=== PATIENT | female | born 1955 | race Caucasian/White ===

== ENCOUNTER 2017-03-21 13:55 | Observation (INO) ==
[2017-03-21] MEDS ORDERED: PROMETHAZINE 25 MG/1 ML VIAL IM STA (16:16)
--- NOTE | 2017-03-21 16:26 | Emergency Department Note ---
Arrival - Arrival Chief Complaint: Non-Specific Stated Complaint: Potassium low, Vomiting, and migraine ED Nursing Triage Note: pt ambulatory to triage with c/o having abnormal labs this am. pt was told that her potassium was low and they sent her here for further eval. pt was also given two shots of toradol while at clinic for cramps. Mode of Arrival: Ambulatory Source: Patient Time Seen by Provider: 03/21/17 14:45 - History of Present Illness HPI Narrative: 61 y/o female presents to the ER complaining of nausea, vomiting, body cramps, and headache. Symptoms started on Sunday. Patient states [facility] and again today for similar complaints. Today she was told that her potassium was 2.7 and was instructed to come to the ER for further evaluation. She was prescribed PO potassium at home but is unable to hold it down. Also, reports he heart has been fluttering. Denies chest pain or palpitations at this time. Past medical history significant for migraine, seizures, bradycardia, asthma, CPOD, PE, sleep apnea, diverticulitis, GERD, cholecystectomy, and hyst. Labs obtained this morning at 1000 were scanned into the computer. Onset (ago): day(s) (4) Consistency: constant Severity: mild Quality: cramping Allergies/Adverse Reactions: Allergies Allergy/AdvReac Type Severity Reaction Status Date / Time Penicillins Allergy Severe Unknown/Unable Verified 03/21/17 14:21 to obtain Sulfa (Sulfonamide Allergy Severe ITCHING Verified 03/21/17 14:21 Antibiotics) vancomycin Allergy Unknown Unknown/Unable Verified 03/21/17 14:21 to obtain Hydromorphone [From Dilaudid] AdvReac Severe Hallucinati Verified 03/21/17 14:21 ng Home Medications: Home Medications Medication Instructions Recorded Confirmed Type Albuterol Inhaler [Proventil 2 puff INH Q6H PRN 02/22/16 12/23/16 History Inhaler] Ergocalciferol [Drisdol] 50,000 unit PO Q7D 02/22/16 12/23/16 History Furosemide Tab [Lasix Tab] 40 mg PO QAM 02/22/16 12/23/16 History Gabapentin Cap/Tab [Neurontin 600 mg PO QID 02/22/16 12/23/16 History Cap/Tab] HYDROcodone/ACETAMIN 10-325 [[place] 1 tablet PO Q6H PRN 02/22/16 12/23/16 History 10-325] Ipratropium/Albuterol Sulfate 3 ml IH QID 02/22/16 12/23/16 History [Iprat-Albut 0.5-3(2.5) mg/3 ml] Omeprazole [Prilosec] 40 mg PO QAM 02/22/16 12/23/16 History Polyethylene Glycol Powder 17 gm PO QAM 02/22/16 12/23/16 History [Miralax] Potassium Chloride 40 meq PO BID 02/22/16 12/23/16 History Pramipexole Di-HCl [Pramipexole 1.5 mg PO BID 02/22/16 12/23/16 History Dihydrochloride] Tizanidine HCl [Zanaflex] 4 mg PO BID PRN 02/22/16 12/23/16 History Zolpidem [Ambien] 2.5 mg PO BEDTIME PRN 02/22/16 12/23/16 History fentaNYL [Fentanyl 50 mcg/hr Patch] 1 patch TRANSDERM QOTHER DAY 06/14/16 History amLODIPine [Norvasc] 2.5 mg PO QAM 12/23/16 12/23/16 History Ciprofloxacin Tab [Cipro Tab] 500 mg PO BID #14 tablet 02/04/17 Rx Promethazine Tab [Phenergan Tab] 25 mg PO Q6H PRN #21 tablet 02/05/17 Rx Promethazine Tab [Phenergan Tab] 25 mg PO Q6H PRN #20 tablet 02/20/17 Rx diphenhydrAMINE CAP [Benadryl Cap] 50 mg PO Q6H PRN #20 capsule 02/20/17 Rx Review of System - Review of System 12 point system: reviewed and no additional remarkable complaints except as stated - Review of System Gastrointestinal: Present: nausea, vomiting Musculoskeletal: Present: other (cramping to lower ext ) Medical,Surgical,& Family Hx - Medical History Cardio: History of: Cardiac Dysrhythmia (bradycardia) Neurology: History of: Migraine, Seizures (childhood) HEENT: History of: HEENT Problems (CATARACT SURGERy) Endocrine: History of: Diabetes Mellitus (IDDM) Comment Only: Diabetes Mellitus (NIDDM) (steroid induced hyperglycemia) Respiratory: History of: Asthma, COPD, Intubation, Obstructive Sleep Apnea, Pulmonary Embolism, Pneumonia, Respiratory Problems (obesity induced hypoventilation syndrome) Genitourinary: History of: Bladder Problem (frequent UTI), Kidney Stones, Recurring Urinary Tract Infections Gastrointestinal: History of: Diverticulitis/ Diverticulosis, GERD Musculoskeletal: History of: Back/Neck Problems, Musculoskeletal Problems ( osteoarthritis, fibromyalgia RIGHT SHOULDER PAIN) Other: History of: Eczema, MRSA, Miscellaneous Medical Problems (chronic pain) - Surgical History Cardiac Surgeries: Sugical HX of: Cardiac Catheterization (negative) Neurologic Surgeries: Patient denies: Neurologic Surgery HEENT Surgeries: Surgical HX of: Eye Surgery (cataract surgery) Abdominal Surgeries: Surgical HX of: Cholecystectomy (6 years ago), Colonoscopy (04/20/2015), EGD (2013) Comment Only: Hernia Repair (HEMORRHOIDECTOMY) Reproductive Surgeries: Surgical HX of;: Genitourinary Surgery (pelvic sling), Hysterectomy Orthopedic Surgeries: Surgical HX of;: Orthopedic Surgery (left arm), Spinal Surgery, Total Knee Replacement (LEFT KNEE right knee 06/11/15) - Family History Family History: Reports;: Family Diabetes (sister), Family Heart Disease (father ), Family Hypertension (father, sister), Family Psychiatric Problems (sister, brother), Family Stroke Denies;: Family Anesthesia Reaction, Family Cancer - Social History Smoking Status: Never smoker Frequency of Alcohol Use: None Type of Drug Use: None Exam Vital Signs: Vital Signs Temperature 97.9 F 03/21/17 14:28 Pulse Rate 70 03/21/17 16:19 Respiratory Rate 20 03/21/17 16:19 Blood Pressure 158/69 03/21/17 16:19 O2 Sat by Pulse Oximetry 96 03/21/17 16:19 - General General appearance: alert, in no apparent distress - ENT ENT exam: Present: normal exam, normal oropharynx, mucous membranes moist - Chest Chest inspection: Present: normal inspection - Respiratory Respiratory exam: Present: normal lung sounds bilaterally - Cardiovascular Cardiovascular exam: Present: regular rate, normal rhythm, normal heart sounds - Abdominal Exam Abdominal exam: Present: soft, normal bowel sounds. Absent: tenderness - Extremities Exam Extremities exam: Present: normal inspection, full ROM - Back Exam Back exam: Absent: CVA tenderness (R), CVA tenderness (L) - Neurological Exam Neurological exam: Present: alert, oriented X3 - Psychiatric Psychiatric exam: Present: normal affect, normal mood - Skin Skin exam: Present: warm, dry Course Course Narrative: Dr. Montano into evaluate patient - Consultations Consultation #1: Dr. Powers Time: 16:00 (Discussed case with Dr. Powers. Will admit to Dr. Montano ) Results - EKG EKG results: WNL, sinus rhythm Disposition Clinical Impression: Hypokalemia, Vomiting, Headache Disposition: Still a Patient
[2017-03-21] MEDS ORDERED: KETOROLAC 30 MG/1 ML VIAL IV STA (16:34)
--- NOTE | 2017-03-21 16:46 | Family Practice History&Phys ---
Assessment and Plan (1) Hypokalemia Status: Acute Assessment and plan: replace K, secondary to IVVD, add antiemitics , IVF,clear liquid diet, 2. GERD, add protonix, 3. Asthma/COPD,add inhalers, O2, 4. TYRESE, continue CPAP, 5.HTN will hold lasix ,metalazone for now, will add another class of BP meds if needed, Current Visit: Yes (2) Vomiting Status: Acute Current Visit: Yes (3) Fatigue Status: Acute Current Visit: Yes (4) GERD (gastroesophageal reflux disease) Status: Chronic Current Visit: Yes (5) Asthma Status: Chronic Current Visit: Yes (6) COPD (chronic obstructive pulmonary disease) Status: Chronic Current Visit: Yes (7) Hypertension, essential Status: Chronic Current Visit: Yes (8) TYRESE on CPAP Status: Chronic Current Visit: Yes History of Present Illness Chief complaint: nausea,headaches , body cramps since 4 days, vomitings today. History of present illness: Ms. Lancaster is a 61 year old female PCP :, Patient went to [facility] with [facility] as a walk-in this morning for not feeling well. CBC ,CMP ,urine analysis were done, found to have low potassium of 2.7, was sent to non urgent care clinic [place]. Current symptoms started 4 days ago, had diarrhea this past Sunday, X 4 on sunday, watery, no blood,, which got resolved in 1-2 days. Last bowel movement yesterday was regular. Followed by nausea and vomiting, vomiting 3 today, with stomach contents, no blood. Unable to keep food down, No fever, no chest pain, no shortness of breath, no abdominal pain, ALso started feeling tired, headache,( history of migraine). 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 Blank, last visit received Steroid injection too, Home Medications Medication Instructions Recorded Confirmed Type Ergocalciferol [Drisdol] 50,000 unit PO Q7D 02/22/16 03/21/17 History Furosemide Tab [Lasix Tab] 40 mg PO QOTHER DAY 02/22/16 03/21/17 History Gabapentin Cap/Tab [Neurontin 600 mg PO QID 02/22/16 03/21/17 History Cap/Tab] HYDROcodone/ACETAMIN 10-325 [[place] 1 tablet PO Q6H PRN 02/22/16 03/21/17 History 10-325] Ipratropium/Albuterol Sulfate 3 ml IH QID 02/22/16 03/21/17 History [Iprat-Albut 0.5-3(2.5) mg/3 ml] Omeprazole [Prilosec] 40 mg PO QAM 02/22/16 03/21/17 History Polyethylene Glycol Powder 17 gm PO QAM 02/22/16 03/21/17 History [Miralax] Potassium Chloride 20 meq PO BID 02/22/16 03/21/17 History Pramipexole Di-HCl [Pramipexole 1.5 mg PO BID 02/22/16 03/21/17 History Dihydrochloride] Tizanidine HCl [Zanaflex] 4 mg PO BID PRN 02/22/16 03/21/17 History Zolpidem [Ambien] 2.5 mg PO BEDTIME PRN 02/22/16 03/21/17 History fentaNYL [Fentanyl 50 mcg/hr Patch] 1 patch TRANSDERM QOTHER DAY 06/14/16 History amLODIPine [Norvasc] 2.5 mg PO QAM 12/23/16 03/21/17 History Promethazine Tab [Phenergan Tab] 25 mg PO Q6H PRN #20 tablet 02/20/17 03/21/17 Rx diphenhydrAMINE CAP [Benadryl Cap] 50 mg PO Q6H PRN #20 capsule 02/20/17 Rx Albuterol Sulfate [Ventolin HFA] 2 inhaler INH BID 03/21/17 03/21/17 History Ondansetron HCl [Ondansetron HCl] 8 mg PO Q8H PRN 03/21/17 03/21/17 History Tizanidine HCl [Tizanidine HCl] 4 mg PO BID 03/21/17 03/21/17 History metOLazone [Metolazone] 5 mg PO DAILY PRN 03/21/17 03/21/17 History Allergies Allergy/AdvReac Type Severity Reaction Status Date / Time Penicillins Allergy Severe Unknown/Unable Verified 03/21/17 14:21 to obtain Sulfa (Sulfonamide Allergy Severe ITCHING Verified 03/21/17 14:21 Antibiotics) vancomycin Allergy Unknown Unknown/Unable Verified 03/21/17 14:21 to obtain Hydromorphone [From Dilaudid] AdvReac Severe Hallucinati Verified 03/21/17 14:21 ng - Constitutional Constitutional: Present: as per HPI - EENT Eyes: Present: as per HPI Ears: Present: as per HPI Nose, mouth and throat: Present: as per HPI - Cardiovascular Cardiovascular: Present: as per HPI - Respiratory Respiratory: Present: as per HPI - Gastrointestinal Gastrointestinal: Present: as per HPI - Genitourinary Genitourinary: Present: as per HPI - Musculoskeletal Musculoskeletal: Present: as per HPI - Neurological Neurological: Present: as per HPI - Endocrine Endocrine: Present: as per HPI - Hematologic/Lymphatic Hematologic/Lymphatic: Present: as per HPI Medical,Surgical,& Family Hx - Medical History Cardio: History of: Cardiac Dysrhythmia (bradycardia) Neurology: History of: Migraine, Seizures (childhood) HEENT: History of: HEENT Problems (CATARACT SURGERy) Endocrine: History of: Diabetes Mellitus (IDDM) Comment Only: Diabetes Mellitus (NIDDM) (steroid induced hyperglycemia) Respiratory: History of: Asthma, COPD, Intubation, Obstructive Sleep Apnea, Pulmonary Embolism, Pneumonia, Respiratory Problems (obesity induced hypoventilation syndrome) Genitourinary: History of: Bladder Problem (frequent UTI), Kidney Stones, Recurring Urinary Tract Infections Gastrointestinal: History of: Diverticulitis/ Diverticulosis, GERD Musculoskeletal: History of: Back/Neck Problems, Musculoskeletal Problems ( osteoarthritis, fibromyalgia RIGHT SHOULDER PAIN) Other: History of: Eczema, MRSA, Miscellaneous Medical Problems (chronic pain) - Surgical History Cardiac Surgeries: Sugical HX of: Cardiac Catheterization (negative) Neurologic Surgeries: Patient denies: Neurologic Surgery HEENT Surgeries: Surgical HX of: Eye Surgery (cataract surgery) Abdominal Surgeries: Surgical HX of: Cholecystectomy (6 years ago), Colonoscopy (04/20/2015), EGD (2013) Comment Only: Hernia Repair (HEMORRHOIDECTOMY) Reproductive Surgeries: Surgical HX of;: Genitourinary Surgery (pelvic sling), Hysterectomy Orthopedic Surgeries: Surgical HX of;: Orthopedic Surgery (left arm), Spinal Surgery, Total Knee Replacement (LEFT KNEE right knee 06/11/15) - Family History Family History: Reports;: Family Diabetes (sister), Family Heart Disease (father ), Family Hypertension (father, sister), Family Psychiatric Problems (sister, brother), Family Stroke Denies;: Family Anesthesia Reaction, Family Cancer - Social History Smoking Status: Never smoker Frequency of Alcohol Use: None Type of Drug Use: None Exam - Constitutional Vitals: Period Temp Pulse Resp BP Sys/[place] Pulse Ox Last 24 Hr 97.9 F-97.9 F 70-71 17-20 140-158/69-79 96-97 Exam: Examination: GENERAL: Alert, oriented, in no acute distress , fatigued ,morbidly obese female pt, lying in the bed, HEENT: PERRLA. EOMI. Mucous membranes are mildly dry NECK: Neck is supple. No JVD. No carotid bruit. No thyromegaly. CVS: Regular rate and rhythm. S1 and S2 are normal. RESPIRATORY: Clear to ausculation bilaterally , No wheezes, rales or rhonchi. ABDOMEN: Soft and nontender at the time of exam,. Bowel sounds are present. No hepatosplenomegaly. EXT: No edema. BASTER HAND: Patient is awake, alert and oriented, Cranial nerves 2-12 grossly intact. Motor strength normal. Results - Labs CBC & BMP: 03/21/17 15:15 03/21/17 15:15 Lab Results: I have reviewed the past 24 hour labs Labs: outside labs in scanned documents
[2017-03-21] MEDS ORDERED: KETOROLAC 30 MG/1 ML VIAL ONE (17:20)
[2017-03-21] MEDS ORDERED: PROMETHAZINE 25 MG/1 ML VIAL ONE (17:20)
[2017-03-21] MEDS ORDERED: ACETAMINOPHEN 325 MG TABLET PO PRN (18:47)
[2017-03-21 19:09] LABS: Basophils % 0.3 % (0.0-0.8); Eosinophils # 0.2 10*3/uL (0.0-0.87); Eosinophils % 1.1 % (0.00-10.9); Hematocrit 37.9 VOL% (35.7-47.0); Hemoglobin 12.7 GM/DL (12.0-16.0); Immature Granulocytes % 0.8 %; Immature Granulocytes Absolute 0.11 #; Lymphocytes # 2.9 10*3/uL (1.4-4.0); Lymphocytes % 19.9 % (21.3-54.2); Mean Corpuscular HGB Conc 33.5 GM/DL (32-36); Mean Corpuscular Hemoglobin 29 PG (27-34); Mean Corpuscular Volume 85.2 FL (87-102); Mean Platelet Volume 11.6 FL (9.6-12.0); Monocytes # 0.8 10*3/uL (0.11-0.8); Monocytes % 5.4 % (1.7-12.7); Neutrophils # 10.6 10*3/uL (1.4-7.4); Neutrophils % 72.5 % (38.7-73.9); Platelet Count 256 T/CUMM (130-400); Red Blood Count 4.45 MC/CUMM (3.8-5.5); White Blood Count 14.6 T/CUMM (4-12)
[2017-03-21 19:16] LABS: Calcium 8.5 MG/DL (8.5-10.1); Osmolality,Calculated 278.5 MOS/KG (273-304); Potassium 2.7 MMOL/L (3.5-5.1)
[2017-03-21] MEDS ORDERED: POTASSIUM CHLORIDE 20 MEQ TABLET PO ONE (20:13)
[2017-03-21] MEDS: traMADol 50 MG TABLET PO PRN (20:23)
[2017-03-21] MEDS: ONDANSETRON 4 MG/2 ML VIAL IV PRN (20:28)
[2017-03-21] MEDS: SODIUM CHLOR 0.9% KCL 20 MEQ 20 MEQ/1,000 ML BAG IV SCH (20:29)
[2017-03-21] MEDS: amLODIPine 5 MG TABLET PO SCH (21:00)
[2017-03-21] MEDS: DOCUSATE SODIUM 100 MG CAPSULE PO SCH (21:00)
[2017-03-22] MEDS: ALBUTEROL/IPRATROPIUM 3 ML NEB RESP TX SCH ×4 (00:25→19:42)
[2017-03-22] MEDS: traMADol 50 MG TABLET PO PRN ×3 (01:30→16:37)
[2017-03-22] MEDS: PROMETHAZINE 25 MG/1 ML VIAL IM PRN ×3 (01:31→18:57)
[2017-03-22 05:58] LABS: Basophils # 0.1 10*3/uL (0.0-0.2); Basophils % 0.5 % (0.0-0.8); Eosinophils # 0.2 10*3/uL (0.0-0.87); Eosinophils % 2.6 % (0.00-10.9); Hematocrit 36.2 VOL% (35.7-47.0); Hemoglobin 11.8 GM/DL (12.0-16.0); Immature Granulocytes % 1.1 %; Lymphocytes # 2.6 10*3/uL (1.4-4.0); Mean Corpuscular HGB Conc 32.6 GM/DL (32-36); Mean Corpuscular Hemoglobin 28 PG (27-34); Mean Corpuscular Volume 86.4 FL (87-102); Monocytes # 0.5 10*3/uL (0.11-0.8); Monocytes % 5.8 % (1.7-12.7); Neutrophils # 5.8 10*3/uL (1.4-7.4); Platelet Count 218 T/CUMM (130-400); Red Blood Count 4.19 MC/CUMM (3.8-5.5); Red Cell Distribution Width 15.2 % (9.3-17.3); White Blood Count 9.3 T/CUMM (4-12)
[2017-03-22 06:28] LABS: Calcium 8.1 MG/DL (8.5-10.1); Osmolality,Calculated 288.1 MOS/KG (273-304)
[2017-03-22] MEDS: SODIUM CHLOR 0.9% KCL 20 MEQ 20 MEQ/1,000 ML BAG IV SCH ×2 (06:55→18:56)
[2017-03-22] MEDS: PANTOPRAZOLE 40 MG TABLET PO SCH (08:53)
[2017-03-22] MEDS: amLODIPine 5 MG TABLET PO SCH (08:53)
[2017-03-22] MEDS: DOCUSATE SODIUM 100 MG CAPSULE PO SCH ×2 (08:54→21:39)
--- NOTE | 2017-03-22 08:54 | Family Practice Progress Note ---
Family Practice - PN: Subj Interval history: PCP: Dr. Powers pt admitted for hypokalemia, secondary to nausea vomiting. 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 floor , lying in bed, Mentions is having headaches, has history of migraines, takes pain meds at home. Nausea improving, no vomiting since yesterday admission on IVF , could not eat much of liquid diet, no fever , chest pain , SOB , no diarrhea No overnight events reported by the nurse, Exam (Progress Note) - Constitutional Vitals: Period Temp Pulse Resp BP Sys/[place] Pulse Ox Last 24 Hr 97.6 F-97.9 F 54-75 17-22 112-158/65-98 93-98 Exam: Examination: GENERAL: Alert, oriented, in no acute distress , fatigued ,morbidly obese female pt, lying in the bed, HEENT: PERRLA. EOMI. Mucous membranes are mildly dry NECK: Neck is supple. No JVD. No carotid bruit. No thyromegaly. CVS: Regular rate and rhythm. S1 and S2 are normal. RESPIRATORY: Clear to ausculation bilaterally , No wheezes, rales or rhonchi. ABDOMEN: Soft and nontender at the time of exam,. Bowel sounds are present. No hepatosplenomegaly. EXT: No edema. 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 Motor strength normal. Results - Labs CBC & BMP: 03/22/17 05:00 03/22/17 05:00 Lab Results: I have reviewed the past 24 hour labs Assessment and Plan (1) Hypokalemia Status: Acute Assessment and plan: Improving, continue to replace K, secondary to IVVD, on antiemitics , IVF,clear liquid diet, 2. GERD, on Protonix, 3. Asthma/COPD, on inhalers, O2, 4. TYRESE, continue CPAP, 5.HTN will hold lasix ,metalazone for now, continue current management Current Visit: Yes (2) Vomiting Status: Acute Current Visit: Yes (3) Fatigue Status: Acute Current Visit: Yes (4) GERD (gastroesophageal reflux disease) Status: Chronic Current Visit: Yes (5) Asthma Status: Chronic Current Visit: Yes (6) COPD (chronic obstructive pulmonary disease) Status: Chronic Current Visit: Yes (7) Hypertension, essential Status: Chronic Current Visit: Yes (8) TYRESE on CPAP Status: Chronic Current Visit: Yes Quality Measures - Stroke Symptom Onset Unknown: No
[2017-03-22] MEDS: KETOROLAC 30 MG/1 ML VIAL IV PRN (11:23)
[2017-03-22] MEDS: GABAPENTIN 300 MG CAPSULE PO SCH ×2 (11:23→21:39)
[2017-03-22] MEDS: POTASSIUM CHLORIDE 20 MEQ TABLET PO SCH ×2 (11:23→21:39)
[2017-03-22] MEDS: ENOXAPARIN 40 MG/0.4 ML SYRINGE SUBCUT SCH (13:29)
[2017-03-22] MEDS: ONDANSETRON 4 MG/2 ML VIAL IV PRN (14:39)
[2017-03-23] MEDS: ALBUTEROL/IPRATROPIUM 3 ML NEB RESP TX SCH ×2 (01:38→07:25)
[2017-03-23] MEDS: traMADol 50 MG TABLET PO PRN (02:03)
[2017-03-23] MEDS: KETOROLAC 30 MG/1 ML VIAL IV PRN (02:53)
[2017-03-23 07:40] VITALS: BP 107/51
[2017-03-23] MEDS: SODIUM CHLOR 0.9% KCL 20 MEQ 20 MEQ/1,000 ML BAG IV SCH (08:10)
[2017-03-23] MEDS: amLODIPine 5 MG TABLET PO SCH (08:11)
[2017-03-23] MEDS: GABAPENTIN 300 MG CAPSULE PO SCH (08:11)
[2017-03-23] MEDS: ONDANSETRON 4 MG/2 ML VIAL IV PRN (08:11)
[2017-03-23] MEDS: DOCUSATE SODIUM 100 MG CAPSULE PO SCH (08:11)
[2017-03-23] MEDS: PANTOPRAZOLE 40 MG TABLET PO SCH (08:11)
[2017-03-23] MEDS: POTASSIUM CHLORIDE 20 MEQ TABLET PO SCH (08:11)
[2017-03-23] MEDS: ENOXAPARIN 40 MG/0.4 ML SYRINGE SUBCUT SCH (08:16)
--- NOTE | 2017-03-23 09:22 | Discharge Summary ---
Hospital Course - Hospital Course Hospital Course: PCP :, Patient went to [facility], [place] with [facility] as a walk-in, the morning of admission,for not feeling well,found to have low potassium of 2.7, was sent to non urgent care clinic at [place]. 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 Blank, pt was admitted under observation, for hypokalemia, secondary to IVVD ( Nausea/ Vomiting), replaced K, continued antiemetics,diet was advanced as tolerated, for Asthma/COPD, the inhalers, O2 continued, TYRESE, continued CPAP, held lasix ,metalazone, added norvasc,daily labs followed,K improved , pt had no vomiting after admission, Discussed with pt, the need of adjusting HTN meds, in detail, advised her to take lasix 20mg every other day , with daily K-dur 20 meq , metalazone discontinued, and norvasc 2.5mg continued after discharge. further changes can be done as outpt, Labs at discharge noted ,K increased to 3.4, pt to follow in 1 week with [facility], Diagnosis - Discharge Diagnosis (1) Hypokalemia Status: Resolved (2) Vomiting Status: Resolved (3) Fatigue Status: Acute (4) GERD (gastroesophageal reflux disease) Status: Chronic (5) Asthma Status: Chronic (6) COPD (chronic obstructive pulmonary disease) Status: Chronic (7) Hypertension, essential Status: Chronic (8) TYRESE on CPAP Status: Chronic Specialty Discharge - Follow Up or Referrals Follow up with: Alexandre Powers DO [Physician] - 03/29/17 1:00 pm (with BMP) Discharge Plan - Discharge Data Disposition: Disch To Home/Self Care Condition at Discharge: Stable Discharge Diet: advance to your usual diet Activity: resume usual activities as tolerated - Discharge Medications Continue Polyethylene Glycol Powder [Miralax] 17 gm PO QAM Zolpidem [Ambien] 2.5 mg PO BEDTIME PRN PRN Reason: Sleep Pramipexole Di-HCl [Pramipexole Dihydrochloride] 1.5 mg PO BID Ergocalciferol [Drisdol] 50,000 unit PO Q7D Omeprazole [Prilosec] 40 mg PO QAM Ipratropium/Albuterol Sulfate [Iprat-Albut 0.5-3(2.5) mg/3 ml] 3 ml IH QID Gabapentin Cap/Tab [Neurontin Cap/Tab] 600 mg PO QID Tizanidine HCl [Zanaflex] 4 mg PO BID PRN PRN Reason: muscle spasms HYDROcodone/ACETAMIN 10-325 [[place] 10-325] 1 tablet PO Q6H PRN PRN Reason: Pain fentaNYL [Fentanyl 50 mcg/hr Patch] 1 patch TRANSDERM QOTHER DAY amLODIPine [Norvasc] 2.5 mg PO QAM Albuterol Sulfate [Ventolin HFA] 2 inhaler INH BID Changed Furosemide Tab [Lasix Tab] 20 mg PO QOTHER DAY #30 tablet Ondansetron HCl 4 mg PO Q8H PRN #30 tablet PRN Reason: nausea Potassium Chloride 20 meq PO DAILY #30 tablet Discontinued diphenhydrAMINE CAP [Benadryl Cap] 50 mg PO Q6H PRN #20 capsule PRN Reason: Headache Promethazine Tab [Phenergan Tab] 25 mg PO Q6H PRN #20 tablet PRN Reason: Headache metOLazone [Metolazone] 5 mg PO DAILY PRN PRN Reason: Blood Pressure-Increased Tizanidine HCl [Tizanidine HCl] 4 mg PO BID - Follow Up or Referral Follow Up: Alexandre Powers DO [Physician] - 03/29/17 1:00 pm (with [facility]) - Forms/Instructions Exam - Constitutional Vitals: Period Temp Pulse Resp BP Sys/[place] Pulse Ox Last 24 Hr 97.1 F-97.8 F 55-73 16-20 107-143/51-70 94-99 Exam: Examination: GENERAL: Alert, oriented, in no acute distress ,morbidly obese female pt, lying in the bed, HEENT: PERRLA. EOMI. Mucous membranes are moist, NECK: Neck is supple. No JVD. No carotid bruit. No thyromegaly. CVS: Regular rate and rhythm. S1 and S2 are normal. RESPIRATORY: Clear to ausculation bilaterally , No wheezes, rales or rhonchi. ABDOMEN: Soft and nontender at the time of exam,. Bowel sounds are present. No hepatosplenomegaly. EXT: No edema. 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 Motor strength normal. Discharge Results Procedures and tests throughout hospitalization: Pending Orders 03/23/17 06:30 Basic Metabolic Panel Routine Comp Blood Count Auto Diff Routine DS: Provider Date of admission: 03/21/17 16:26 Primary care physician: . No PCP Attending physician on admission: Wilfredo Montano MD Consults: 03/21/17 18:47 Consult to Case Mgmt/Social Srvs [CONS] Routine Reason for Case Mgmt/Social Srvs: Discharge Planning Discharging clinician: Wilfredo Montano MD
[2017-03-23 09:41] LABS: Potassium 3.4 MMOL/L (3.5-5.1)
[2017-03-23 10:21] LABS: Basophils # 0.1 10*3/uL (0.0-0.2); Basophils % 0.5 % (0.0-0.8); Eosinophils # 0.3 10*3/uL (0.0-0.87); Eosinophils % 3.1 % (0.00-10.9); Hematocrit 36.9 VOL% (35.7-47.0); Hemoglobin 12.2 GM/DL (12.0-16.0); Immature Granulocytes % 1.1 %; Lymphocytes # 2.1 10*3/uL (1.4-4.0); Lymphocytes % 22.6 % (21.3-54.2); Mean Corpuscular HGB Conc 33.1 GM/DL (32-36); Mean Corpuscular Hemoglobin 29 PG (27-34); Mean Corpuscular Volume 88.1 FL (87-102); Mean Platelet Volume 11.6 FL (9.6-12.0); Monocytes # 0.6 10*3/uL (0.11-0.8); Monocytes % 6.5 % (1.7-12.7); Neutrophils % 66.2 % (38.7-73.9); Platelet Count 242 T/CUMM (130-400); Red Blood Count 4.19 MC/CUMM (3.8-5.5); Red Cell Distribution Width 15.4 % (9.3-17.3); White Blood Count 9.1 T/CUMM (4-12)
--- NOTE | 2017-03-28 21:00 | Order Completion Report ---
See report scanned to EMR
== END 2017-03-23 11:33 | disposition home or self-care (01) ==
LOC: N.EDINP 13:55 → N.ED 13:55 → N.2E 18:16
PROVIDERS: ADMIT Family Medicine; ATTEND Family Medicine

== ENCOUNTER 2017-05-06 08:54 | Inpatient (IN) ==
[2017-05-06 10:55] LABS: Basophils # 0.1 10*3/uL (0.0-0.2); Basophils % 0.6 % (0.0-0.8); Eosinophils # 0.2 10*3/uL (0.0-0.87); Eosinophils % 1.7 % (0.00-10.9); Hematocrit 38.4 VOL% (35.7-47.0); Immature Granulocytes % 0.9 %; Immature Granulocytes Absolute 0.11 #; Lymphocytes # 2.4 10*3/uL (1.4-4.0); Lymphocytes % 18.8 % (21.3-54.2); Mean Corpuscular HGB Conc 33.9 GM/DL (32-36); Mean Corpuscular Hemoglobin 29 PG (27-34); Mean Corpuscular Volume 86.3 FL (87-102); Mean Platelet Volume 10.9 FL (9.6-12.0); Monocytes % 7.7 % (1.7-12.7); Neutrophils # 8.9 10*3/uL (1.4-7.4); Neutrophils % 70.3 % (38.7-73.9); Platelet Count 217 T/CUMM (130-400); Red Blood Count 4.45 MC/CUMM (3.8-5.5); Red Cell Distribution Width 14.7 % (9.3-17.3); White Blood Count 12.7 T/CUMM (4-12)
[2017-05-06 11:13] LABS: Apearance,Urine Slightly Hazy (Clear); Bacteria,Urine Occasional /HPF (Few); Bilirubin,Urine Negative (Negative); Blood, Urine Small mg/dL (Negative); Glucose,Urine (UA) Negative (Negative); Hyaline Casts,Urine 1 /LPF (0-3); Ketones,Urine Negative (Negative); Mucus,Urine Occasional /LPF (Occasional); Nitrite,Urine Negative (Negative); Protein,Urine Negative; RBC,Urine <1 /HPF (0-4); Squamous Epithelial Cell,Urine Occasional /HPF (0-10); Urine Color Yellow (Yellow); Urine Specific Gravity 1.017 (1.001-1.035); Urine Urobilinogen < 2.0 EU/DL (0.2-1.0); WBC,Urine 1 /HPF (0-6)
[2017-05-06 11:33] LABS: Bilirubin,Total 0.8 MG/DL (0.2-1.0); Calcium 8.7 MG/DL (8.5-10.1); Lactic Acid 1.4 MMOL/L (0.4-2.0); Osmolality,Calculated 275.7 MOS/KG (273-304); Potassium 2.9 MMOL/L (3.5-5.1)
[2017-05-06] MEDS ORDERED: LEVOFLOXACIN INJ 750 MG in PREMIX 1 EACH IV STA (12:27)
[2017-05-06] MEDS ORDERED: MORPHINE 2 MG/1 ML SYRINGE IV PRN (12:29)
[2017-05-06] MEDS ORDERED: ACETAMINOPHEN 325 MG TABLET PO PRN (12:29)
[2017-05-06] MEDS ORDERED: SODIUM CHLORIDE 0.9% 1,000 ML IV SCH (12:30)
[2017-05-06] MEDS ORDERED: MORPHINE 2 MG/1 ML SYRINGE IV STA ×2 (12:47→14:25)
[2017-05-06] MEDS ORDERED: ONDANSETRON 4 MG/2 ML VIAL IV STA (12:47)
[2017-05-06] MEDS ORDERED: LEVOFLOXACIN INJ 0 ML IV ONE (12:51)
[2017-05-06] MEDS ORDERED: ONDANSETRON 4 MG/2 ML VIAL ONE (12:51)
[2017-05-06] MEDS ORDERED: MORPHINE 2 MG/1 ML SYRINGE ONE ×3 (12:51→14:26)
[2017-05-06] MEDS ORDERED: KETOROLAC 30 MG/1 ML VIAL IV STA (13:25)
[2017-05-06] MEDS ORDERED: KETOROLAC 30 MG/1 ML VIAL ONE (13:30)
[2017-05-06] MEDS: metroNIDAZOLE INJ 500 MG in PREMIX 1 EACH IV SCH ×2 (14:57→20:29)
[2017-05-06] MEDS: ENOXAPARIN 40 MG/0.4 ML SYRINGE SUBCUT SCH (14:57)
[2017-05-06] MEDS: LEVOFLOXACIN INJ 500 MG in PREMIX 1 EACH IV SCH (14:57)
[2017-05-06] MEDS ORDERED: tiZANidine 4 MG TABLET PO PRN (16:06)
[2017-05-06] MEDS ORDERED: POLYETHYLENE GLYCOL POWDER 17 GM PACK PO PRN (16:06)
[2017-05-06] MEDS ORDERED: ERGOCALCIFEROL 50,000 UNIT CAPSULE PO SCH (16:30)
[2017-05-06] MEDS: POTASSIUM CHLORIDE 20 MEQ TABLET PO SCH (17:28)
[2017-05-06] MEDS: fentaNYL 50 MCG/HR PATCH TRANSDERM SCH (17:28)
[2017-05-06] MEDS: GABAPENTIN 600 MG TABLET PO SCH ×2 (17:28→22:12)
[2017-05-06] MEDS: MORPHINE 2 MG/1 ML SYRINGE IV PRN ×2 (17:29→22:09)
[2017-05-06] MEDS: ONDANSETRON 4 MG TABLET PO PRN (17:30)
[2017-05-06] MEDS: SODIUM CHLOR 0.45% KCL 20 MEQ 20 MEQ/1,000 ML BAG IV SCH (17:34)
[2017-05-06] MEDS ORDERED: ALBUTEROL 2.5 MG/3 ML NEB RESP TX SCH (19:00)
[2017-05-06] MEDS: ALBUTEROL/IPRATROPIUM 3 ML NEB RESP TX SCH (19:54)
[2017-05-06] MEDS: PROMETHAZINE 25 MG/1 ML VIAL IM PRN (21:09)
[2017-05-06] MEDS: ZALEPLON 5 MG CAPSULE PO SCH (22:12)
[2017-05-06] MEDS: PRAMIPEXOLE 1 MG TABLET PO SCH (22:12)
[2017-05-06] MEDS: DOCUSATE SODIUM 100 MG CAPSULE PO SCH (22:12)
[2017-05-07] MEDS: MORPHINE 2 MG/1 ML SYRINGE IV PRN ×3 (02:14→17:43)
[2017-05-07] MEDS: ONDANSETRON 4 MG/2 ML VIAL IV PRN ×4 (02:18→22:57)
[2017-05-07 04:01] LABS: Basophils # 0.1 10*3/uL (0.0-0.2); Basophils % 0.7 % (0.0-0.8); Eosinophils # 0.3 10*3/uL (0.0-0.87); Eosinophils % 2.5 % (0.00-10.9); Hematocrit 40.2 VOL% (35.7-47.0); Immature Granulocytes % 1.2 %; Immature Granulocytes Absolute 0.14 #; Lymphocytes # 2.6 10*3/uL (1.4-4.0); Lymphocytes % 21.9 % (21.3-54.2); Mean Corpuscular HGB Conc 32.3 GM/DL (32-36); Mean Corpuscular Hemoglobin 28 PG (27-34); Mean Platelet Volume 11.7 FL (9.6-12.0); Monocytes # 0.9 10*3/uL (0.11-0.8); Monocytes % 7.6 % (1.7-12.7); Neutrophils # 7.9 10*3/uL (1.4-7.4); Neutrophils % 66.1 % (38.7-73.9); Platelet Count 259 T/CUMM (130-400); Red Blood Count 4.57 MC/CUMM (3.8-5.5); Red Cell Distribution Width 14.8 % (9.3-17.3); White Blood Count 11.9 T/CUMM (4-12)
[2017-05-07 04:35] LABS: Calcium 8.7 MG/DL (8.5-10.1); Osmolality,Calculated 275.8 MOS/KG (273-304); Potassium 3.5 MMOL/L (3.5-5.1)
[2017-05-07] MEDS: SODIUM CHLOR 0.45% KCL 20 MEQ 20 MEQ/1,000 ML BAG IV SCH ×3 (05:33→17:50)
[2017-05-07] MEDS: metroNIDAZOLE INJ 500 MG in PREMIX 1 EACH IV SCH ×3 (05:40→23:04)
[2017-05-07] MEDS: ALBUTEROL/IPRATROPIUM 3 ML NEB RESP TX SCH ×4 (07:28→19:55)
[2017-05-07] MEDS: GABAPENTIN 600 MG TABLET PO SCH ×4 (08:44→23:04)
[2017-05-07] MEDS: POTASSIUM CHLORIDE 20 MEQ TABLET PO SCH (08:44)
[2017-05-07] MEDS: DOCUSATE SODIUM 100 MG CAPSULE PO SCH ×2 (08:44→23:05)
[2017-05-07] MEDS: PRAMIPEXOLE 1 MG TABLET PO SCH ×2 (08:44→23:04)
[2017-05-07] MEDS: amLODIPine 2.5 MG TABLET PO SCH (08:59)
[2017-05-07] MEDS: NEBIVOLOL 5 MG TABLET PO SCH (08:59)
[2017-05-07] MEDS: PANTOPRAZOLE 40 MG VIAL IV SCH ×2 (09:00→23:01)
[2017-05-07] MEDS ORDERED: PANTOPRAZOLE 40 MG TABLET PO SCH (09:00)
[2017-05-07] MEDS: ENOXAPARIN 40 MG/0.4 ML SYRINGE SUBCUT SCH (11:56)
[2017-05-07] MEDS: LEVOFLOXACIN INJ 500 MG in PREMIX 1 EACH IV SCH (13:26)
[2017-05-07] MEDS: PROMETHAZINE 25 MG/1 ML VIAL IM PRN (17:50)
[2017-05-07] MEDS: ZALEPLON 5 MG CAPSULE PO SCH (23:05)
[2017-05-08] MEDS: metroNIDAZOLE INJ 500 MG in PREMIX 1 EACH IV SCH ×3 (04:17→21:35)
[2017-05-08] MEDS: SODIUM CHLOR 0.45% KCL 20 MEQ 20 MEQ/1,000 ML BAG IV SCH ×4 (04:17→19:12)
[2017-05-08 06:30] LABS: Basophils % 0.4 % (0.0-0.8); Eosinophils # 0.1 10*3/uL (0.0-0.87); Eosinophils % 0.6 % (0.00-10.9); Hematocrit 33.2 VOL% (35.7-47.0); Hemoglobin 10.8 GM/DL (12.0-16.0); Immature Granulocytes % 1.4 %; Immature Granulocytes Absolute 0.14 #; Lymphocytes # 1.5 10*3/uL (1.4-4.0); Lymphocytes % 15.2 % (21.3-54.2); Mean Corpuscular HGB Conc 32.5 GM/DL (32-36); Mean Corpuscular Hemoglobin 29 PG (27-34); Mean Corpuscular Volume 88.5 FL (87-102); Mean Platelet Volume 11.2 FL (9.6-12.0); Monocytes # 0.7 10*3/uL (0.11-0.8); Monocytes % 7.2 % (1.7-12.7); Neutrophils # 7.4 10*3/uL (1.4-7.4); Neutrophils % 75.2 % (38.7-73.9); Platelet Count 217 T/CUMM (130-400); Red Blood Count 3.75 MC/CUMM (3.8-5.5); Red Cell Distribution Width 15.4 % (9.3-17.3); White Blood Count 9.8 T/CUMM (4-12)
[2017-05-08 06:55] LABS: Osmolality,Calculated 278.7 MOS/KG (273-304); Potassium 3.7 MMOL/L (3.5-5.1)
[2017-05-08] MEDS: ALBUTEROL/IPRATROPIUM 3 ML NEB RESP TX SCH ×5 (07:11→21:20)
[2017-05-08] MEDS: PANTOPRAZOLE 40 MG VIAL IV SCH ×2 (10:12→21:32)
[2017-05-08] MEDS: amLODIPine 2.5 MG TABLET PO SCH (10:12)
[2017-05-08] MEDS: MORPHINE 2 MG/1 ML SYRINGE IV PRN ×3 (10:12→19:11)
[2017-05-08] MEDS: GABAPENTIN 600 MG TABLET PO SCH ×4 (10:12→21:35)
[2017-05-08] MEDS: POTASSIUM CHLORIDE 20 MEQ TABLET PO SCH (10:12)
[2017-05-08] MEDS: PRAMIPEXOLE 1 MG TABLET PO SCH ×2 (10:12→21:34)
[2017-05-08] MEDS: NEBIVOLOL 5 MG TABLET PO SCH (10:13)
[2017-05-08] MEDS: FUROSEMIDE 20 MG TABLET PO SCH (10:13)
[2017-05-08] MEDS: DOCUSATE SODIUM 100 MG CAPSULE PO SCH ×2 (10:13→21:35)
[2017-05-08] MEDS: ENOXAPARIN 40 MG/0.4 ML SYRINGE SUBCUT SCH (12:16)
[2017-05-08] MEDS: LEVOFLOXACIN INJ 500 MG in PREMIX 1 EACH IV SCH (14:23)
[2017-05-08] MEDS: ZALEPLON 5 MG CAPSULE PO SCH (21:35)
[2017-05-08] MEDS: ONDANSETRON 4 MG/2 ML VIAL IV PRN (21:37)
[2017-05-09] MEDS: SODIUM CHLOR 0.45% KCL 20 MEQ 20 MEQ/1,000 ML BAG IV SCH ×4 (04:11→17:21)
[2017-05-09] MEDS: metroNIDAZOLE INJ 500 MG in PREMIX 1 EACH IV SCH ×3 (04:12→20:57)
[2017-05-09] MEDS: ONDANSETRON 4 MG/2 ML VIAL IV PRN (05:21)
[2017-05-09 05:38] LABS: Basophils # 0.1 10*3/uL (0.0-0.2); Basophils % 0.7 % (0.0-0.8); Eosinophils # 0.1 10*3/uL (0.0-0.87); Eosinophils % 0.9 % (0.00-10.9); Hematocrit 33.1 VOL% (35.7-47.0); Hemoglobin 10.5 GM/DL (12.0-16.0); Immature Granulocytes % 1.8 %; Immature Granulocytes Absolute 0.15 #; Lymphocytes # 1.6 10*3/uL (1.4-4.0); Lymphocytes % 19.9 % (21.3-54.2); Mean Corpuscular HGB Conc 31.7 GM/DL (32-36); Mean Corpuscular Hemoglobin 29 PG (27-34); Mean Corpuscular Volume 90.2 FL (87-102); Mean Platelet Volume 10.9 FL (9.6-12.0); Monocytes # 0.7 10*3/uL (0.11-0.8); Monocytes % 8.4 % (1.7-12.7); Neutrophils # 5.6 10*3/uL (1.4-7.4); Neutrophils % 68.3 % (38.7-73.9); Platelet Count 220 T/CUMM (130-400); Red Blood Count 3.67 MC/CUMM (3.8-5.5); Red Cell Distribution Width 15.3 % (9.3-17.3); White Blood Count 8.2 T/CUMM (4-12)
[2017-05-09 06:11] LABS: Calcium 8.2 MG/DL (8.5-10.1)
[2017-05-09] MEDS: ALBUTEROL/IPRATROPIUM 3 ML NEB RESP TX SCH ×4 (07:42→19:58)
[2017-05-09] MEDS: MORPHINE 2 MG/1 ML SYRINGE IV PRN ×3 (07:51→18:31)
[2017-05-09] MEDS: GABAPENTIN 600 MG TABLET PO SCH ×4 (09:01→20:59)
[2017-05-09] MEDS: PROMETHAZINE 25 MG/1 ML VIAL IM PRN ×2 (09:01→16:00)
[2017-05-09] MEDS: DOCUSATE SODIUM 100 MG CAPSULE PO SCH ×2 (09:01→20:59)
[2017-05-09] MEDS: PRAMIPEXOLE 1 MG TABLET PO SCH ×2 (09:01→20:59)
[2017-05-09] MEDS: PANTOPRAZOLE 40 MG VIAL IV SCH ×2 (09:01→21:00)
[2017-05-09] MEDS: amLODIPine 2.5 MG TABLET PO SCH (09:01)
[2017-05-09] MEDS: POTASSIUM CHLORIDE 20 MEQ TABLET PO SCH (09:01)
[2017-05-09] MEDS: NEBIVOLOL 5 MG TABLET PO SCH (09:02)
[2017-05-09] MEDS: ENOXAPARIN 40 MG/0.4 ML SYRINGE SUBCUT SCH (14:45)
[2017-05-09] MEDS: LEVOFLOXACIN INJ 500 MG in PREMIX 1 EACH IV SCH (15:54)
[2017-05-09] MEDS: fentaNYL 50 MCG/HR PATCH TRANSDERM SCH (15:56)
[2017-05-09] MEDS: ZALEPLON 5 MG CAPSULE PO SCH (21:03)
[2017-05-10] MEDS: metroNIDAZOLE INJ 500 MG in PREMIX 1 EACH IV SCH ×3 (04:18→20:30)
[2017-05-10] MEDS: SODIUM CHLOR 0.45% KCL 20 MEQ 20 MEQ/1,000 ML BAG IV SCH ×3 (04:19→20:43)
[2017-05-10 04:35] LABS: Basophils # 0.1 10*3/uL (0.0-0.2); Basophils % 0.7 % (0.0-0.8); Eosinophils # 0.2 10*3/uL (0.0-0.87); Eosinophils % 2.8 % (0.00-10.9); Hematocrit 35.3 VOL% (35.7-47.0); Hemoglobin 11.4 GM/DL (12.0-16.0); Immature Granulocytes % 1.2 %; Immature Granulocytes Absolute 0.09 #; Lymphocytes # 1.4 10*3/uL (1.4-4.0); Lymphocytes % 18.8 % (21.3-54.2); Mean Corpuscular HGB Conc 32.3 GM/DL (32-36); Mean Corpuscular Hemoglobin 29 PG (27-34); Mean Corpuscular Volume 89.4 FL (87-102); Monocytes # 0.6 10*3/uL (0.11-0.8); Monocytes % 7.7 % (1.7-12.7); Neutrophils # 5.2 10*3/uL (1.4-7.4); Neutrophils % 68.8 % (38.7-73.9); Platelet Count 185 T/CUMM (130-400); Red Blood Count 3.95 MC/CUMM (3.8-5.5); Red Cell Distribution Width 14.9 % (9.3-17.3); White Blood Count 7.5 T/CUMM (4-12)
[2017-05-10 05:02] LABS: Calcium 8.2 MG/DL (8.5-10.1); Potassium 4.4 MMOL/L (3.5-5.1)
[2017-05-10 05:49] LABS: Platelet Estimate Normal
[2017-05-10] MEDS: ALBUTEROL/IPRATROPIUM 3 ML NEB RESP TX SCH ×4 (07:55→19:47)
[2017-05-10] MEDS: PRAMIPEXOLE 1 MG TABLET PO SCH ×2 (09:01→20:28)
[2017-05-10] MEDS: PANTOPRAZOLE 40 MG VIAL IV SCH ×2 (09:01→20:28)
[2017-05-10] MEDS: NEBIVOLOL 5 MG TABLET PO SCH (09:02)
[2017-05-10] MEDS: amLODIPine 2.5 MG TABLET PO SCH (09:02)
[2017-05-10] MEDS: GABAPENTIN 600 MG TABLET PO SCH ×4 (09:02→20:28)
[2017-05-10] MEDS: POTASSIUM CHLORIDE 20 MEQ TABLET PO SCH (09:03)
[2017-05-10] MEDS: DOCUSATE SODIUM 100 MG CAPSULE PO SCH ×2 (09:03→20:28)
[2017-05-10] MEDS: FUROSEMIDE 20 MG TABLET PO SCH (09:03)
[2017-05-10] MEDS: ONDANSETRON 4 MG/2 ML VIAL IV PRN ×2 (09:08→20:27)
[2017-05-10] MEDS: MORPHINE 2 MG/1 ML SYRINGE IV PRN ×3 (09:08→20:29)
[2017-05-10] MEDS: ENOXAPARIN 40 MG/0.4 ML SYRINGE SUBCUT SCH (12:03)
[2017-05-10] MEDS: FLUCONAZOLE 100 MG TABLET PO SCH (12:04)
[2017-05-10] MEDS: LEVOFLOXACIN INJ 500 MG in PREMIX 1 EACH IV SCH (13:54)
[2017-05-10] MEDS: PROMETHAZINE 25 MG/1 ML VIAL IM PRN (18:31)
[2017-05-10] MEDS: ZALEPLON 5 MG CAPSULE PO SCH (20:28)
[2017-05-11] MEDS: MORPHINE 2 MG/1 ML SYRINGE IV PRN ×5 (02:33→21:33)
[2017-05-11] MEDS: SODIUM CHLOR 0.45% KCL 20 MEQ 20 MEQ/1,000 ML BAG IV SCH ×2 (02:36→03:29)
[2017-05-11 03:54] LABS: Basophils # 0.1 10*3/uL (0.0-0.2); Basophils % 0.8 % (0.0-0.8); Eosinophils # 0.3 10*3/uL (0.0-0.87); Eosinophils % 3.8 % (0.00-10.9); Hematocrit 36.7 VOL% (35.7-47.0); Hemoglobin 11.7 GM/DL (12.0-16.0); Immature Granulocytes % 1.7 %; Immature Granulocytes Absolute 0.12 #; Lymphocytes # 1.5 10*3/uL (1.4-4.0); Mean Corpuscular HGB Conc 31.9 GM/DL (32-36); Mean Corpuscular Hemoglobin 29 PG (27-34); Mean Corpuscular Volume 90.4 FL (87-102); Mean Platelet Volume 11.6 FL (9.6-12.0); Monocytes # 0.6 10*3/uL (0.11-0.8); Monocytes % 8.5 % (1.7-12.7); NRBC # 0.02 10*3/uL; Neutrophils # 4.6 10*3/uL (1.4-7.4); Neutrophils % 64.2 % (38.7-73.9); Platelet Count 224 T/CUMM (130-400); Red Blood Count 4.06 MC/CUMM (3.8-5.5); Red Cell Distribution Width 15.4 % (9.3-17.3); White Blood Count 7.2 T/CUMM (4-12)
[2017-05-11 03:59] LABS: Calcium 8.5 MG/DL (8.5-10.1); Magnesium 1.9 MG/DL (1.8-2.4); Osmolality,Calculated 275.5 MOS/KG (273-304); Potassium 4.3 MMOL/L (3.5-5.1)
[2017-05-11] MEDS: ONDANSETRON 4 MG/2 ML VIAL IV PRN ×3 (05:13→21:42)
[2017-05-11] MEDS: metroNIDAZOLE 500 MG TABLET PO SCH ×4 (05:13→20:58)
[2017-05-11 05:38] LABS: Hypochromasia 1+; Microcytosis 1+; Platelet Estimate Normal
[2017-05-11] MEDS: ALBUTEROL/IPRATROPIUM 3 ML NEB RESP TX SCH ×4 (07:26→20:56)
[2017-05-11] MEDS: PRAMIPEXOLE 1 MG TABLET PO SCH ×2 (09:37→20:58)
[2017-05-11] MEDS: FLUCONAZOLE 100 MG TABLET PO SCH (09:39)
[2017-05-11] MEDS: GABAPENTIN 600 MG TABLET PO SCH ×4 (09:40→20:58)
[2017-05-11] MEDS: DOCUSATE SODIUM 100 MG CAPSULE PO SCH ×2 (09:41→21:29)
[2017-05-11] MEDS: POTASSIUM CHLORIDE 20 MEQ TABLET PO SCH (09:41)
[2017-05-11] MEDS: ONDANSETRON 4 MG TABLET PO PRN (09:41)
[2017-05-11] MEDS: PANTOPRAZOLE 40 MG VIAL IV SCH (10:57)
[2017-05-11] MEDS: amLODIPine 2.5 MG TABLET PO SCH (13:42)
[2017-05-11] MEDS: NEBIVOLOL 5 MG TABLET PO SCH (13:42)
[2017-05-11] MEDS: ENOXAPARIN 40 MG/0.4 ML SYRINGE SUBCUT SCH (14:24)
[2017-05-11] MEDS ORDERED: SODIUM CHLORIDE 0.9% 1,000 ML IV SCH (14:30)
[2017-05-11] MEDS: LEVOFLOXACIN 500 MG TABLET PO SCH (14:34)
[2017-05-11] MEDS: PANTOPRAZOLE 40 MG TABLET PO SCH (20:57)
[2017-05-11] MEDS: ZALEPLON 5 MG CAPSULE PO SCH (21:30)
[2017-05-12] MEDS: SODIUM CHLOR 0.45% KCL 20 MEQ 20 MEQ/1,000 ML BAG IV SCH (01:26)
[2017-05-12] MEDS: ONDANSETRON 4 MG/2 ML VIAL IV PRN ×2 (01:33→06:17)
[2017-05-12] MEDS: MORPHINE 2 MG/1 ML SYRINGE IV PRN ×3 (01:35→07:58)
[2017-05-12] MEDS: ALBUTEROL/IPRATROPIUM 3 ML NEB RESP TX SCH ×3 (08:19→15:14)
[2017-05-12] MEDS: PANTOPRAZOLE 40 MG TABLET PO SCH (10:17)
[2017-05-12] MEDS: DOCUSATE SODIUM 100 MG CAPSULE PO SCH (10:17)
[2017-05-12] MEDS: PRAMIPEXOLE 1 MG TABLET PO SCH (10:18)
[2017-05-12] MEDS: FLUCONAZOLE 100 MG TABLET PO SCH (10:22)
[2017-05-12] MEDS: FUROSEMIDE 20 MG TABLET PO SCH (10:25)
[2017-05-12] MEDS: amLODIPine 2.5 MG TABLET PO SCH (10:25)
[2017-05-12] MEDS: NEBIVOLOL 5 MG TABLET PO SCH (10:26)
[2017-05-12] MEDS: POTASSIUM CHLORIDE 20 MEQ TABLET PO SCH (10:27)
[2017-05-12] MEDS: GABAPENTIN 600 MG TABLET PO SCH ×2 (10:27→14:28)
[2017-05-12] MEDS: metroNIDAZOLE 500 MG TABLET PO SCH (10:27)
[2017-05-12 12:33] VITALS: BP 104/70
[2017-05-12] MEDS: ENOXAPARIN 40 MG/0.4 ML SYRINGE SUBCUT SCH (14:22)
[2017-05-12] MEDS: LEVOFLOXACIN 500 MG TABLET PO SCH (14:28)
== END 2017-05-12 16:00 | disposition home or self-care (01) | DRG 392 ==
LOC: N.ED 08:54 → N.EDINP 12:29 → N.3E 14:54
PROVIDERS: ADMIT Family Medicine; ATTEND Family Medicine

== ENCOUNTER 2017-05-18 07:47 | Inpatient (IN) ==
[2017-05-18] MEDS ORDERED: ONDANSETRON 4 MG/2 ML VIAL ONE ×2 (08:17→08:42)
[2017-05-18] MEDS ORDERED: IBUPROFEN 800 MG TABLET ONE (08:18)
[2017-05-18] MEDS ORDERED: SODIUM CHLORIDE 0.9% 1,000 ML IV STA (08:30)
[2017-05-18] MEDS ORDERED: MORPHINE 2 MG/1 ML SYRINGE IV STA ×2 (08:30→13:02)
[2017-05-18] MEDS ORDERED: ONDANSETRON 4 MG/2 ML VIAL IV STA (08:33)
[2017-05-18] MEDS ORDERED: MORPHINE 2 MG/1 ML SYRINGE ONE ×2 (08:42→13:03)
[2017-05-18 09:14] LABS: Basophils # 0.1 10*3/uL (0.0-0.2); Eosinophils # 0.2 10*3/uL (0.0-0.87); Eosinophils % 2.6 % (0.00-10.9); Hematocrit 41.7 VOL% (35.7-47.0); Hemoglobin 13.8 GM/DL (12.0-16.0); Immature Granulocytes % 0.6 %; Immature Granulocytes Absolute 0.04 #; Lymphocytes # 1.6 10*3/uL (1.4-4.0); Lymphocytes % 23.5 % (21.3-54.2); Mean Corpuscular HGB Conc 33.1 GM/DL (32-36); Mean Corpuscular Hemoglobin 29 PG (27-34); Mean Corpuscular Volume 86.5 FL (87-102); Mean Platelet Volume 11.2 FL (9.6-12.0); Monocytes # 0.5 10*3/uL (0.11-0.8); Monocytes % 6.8 % (1.7-12.7); Neutrophils # 4.5 10*3/uL (1.4-7.4); Neutrophils % 65.5 % (38.7-73.9); Platelet Count 225 T/CUMM (130-400); Red Blood Count 4.82 MC/CUMM (3.8-5.5); Red Cell Distribution Width 15.7 % (9.3-17.3); White Blood Count 6.9 T/CUMM (4-12)
[2017-05-18 09:26] LABS: Lactic Acid 0.9 MMOL/L (0.4-2.0)
[2017-05-18 09:39] LABS: Apearance,Urine Slightly Hazy (Clear); Bacteria,Urine Occasional /HPF (Few); Bilirubin,Urine Negative (Negative); Blood, Urine Negative (Negative); Glucose,Urine (UA) Negative (Negative); Ketones,Urine 5 mg/dL (Negative); Mucus,Urine Many /LPF (Occasional); Nitrite,Urine Negative (Negative); Protein,Urine Negative; Squamous Epithelial Cell,Urine Occasional /HPF (0-10); Urine Color Yellow (Yellow); Urine Specific Gravity 1.012 (1.001-1.035); Urine Urobilinogen < 2.0 EU/DL (0.2-1.0); WBC,Urine 3 /HPF (0-6)
[2017-05-18 10:12] LABS: Albumin 3.3 G/DL (3.4-5.0); Bilirubin,Total 0.7 MG/DL (0.2-1.0); Calcium 8.5 MG/DL (8.5-10.1); Potassium 3.3 MMOL/L (3.5-5.1); Total Protein 6.3 G/DL (6.4-8.3)
[2017-05-18] MEDS ORDERED: ONDANSETRON 4 MG/2 ML VIAL IV PRN (12:21)
[2017-05-18] MEDS ORDERED: ACETAMINOPHEN 325 MG TABLET PO PRN ×2 (12:21→15:38)
[2017-05-18] MEDS ORDERED: ONDANSETRON HCL 4 MG PO PRN (12:25)
[2017-05-18] MEDS ORDERED: NON-FORMULARY MEDICATION (Tizanidine Hcl [Zanaflex] 4 MG) PO PRN (12:25)
[2017-05-18] MEDS ORDERED: SODIUM CHLORIDE 0.9% 1,000 ML IV SCH ×2 (12:30→16:30)
[2017-05-18] MEDS ORDERED: ERGOCALCIFEROL 50,000 UNIT CAPSULE PO SCH (12:30)
[2017-05-18] MEDS ORDERED: fentaNYL 50 MCG/HR PATCH TRANSDERM SCH (12:30)
[2017-05-18] MEDS ORDERED: GABAPENTIN 600 MG TABLET PO SCH (13:00)
[2017-05-18] MEDS: ONDANSETRON 4 MG/2 ML VIAL IV PRN ×2 (15:55→22:57)
[2017-05-18] MEDS ORDERED: DEXTROSE 50% 25 GM/50 ML VIAL IV PRN (16:50)
[2017-05-18] MEDS ORDERED: GLUCAGON 1 MG VIAL IM PRN (16:50)
[2017-05-18] MEDS: ENOXAPARIN 40 MG/0.4 ML SYRINGE SUBCUT SCH (17:13)
[2017-05-18] MEDS: LEVOFLOXACIN INJ 500 MG in PREMIX 1 EACH IV SCH (17:13)
[2017-05-18] MEDS: SODIUM CHLOR 0.9% KCL 20 MEQ 20 MEQ/1,000 ML BAG IV SCH (17:14)
[2017-05-18] MEDS ORDERED: PANTOPRAZOLE 40 MG VIAL IV ONE (17:23)
[2017-05-18] MEDS: MORPHINE 2 MG/1 ML SYRINGE IV PRN ×2 (17:49→22:54)
[2017-05-18] MEDS: INSULIN LISPRO 100 UNIT/ML SUBCUT SCH (17:54)
[2017-05-18] MEDS ORDERED: ALBUTEROL SULFATE INH SCH (21:00)
[2017-05-18] MEDS ORDERED: PRAMIPEXOLE DI HCL 1.5 MG PO SCH (21:00)
[2017-05-18] MEDS ORDERED: NON-FORMULARY MEDICATION (Zolpidem Tartrate [Ambien] 10 MG) PO SCH (21:00)
[2017-05-18] MEDS ORDERED: PANTOPRAZOLE 40 MG TABLET PO SCH (21:00)
[2017-05-18] MEDS ORDERED: DOCUSATE SODIUM 100 MG CAPSULE PO SCH (21:00)
[2017-05-18] MEDS: GABAPENTIN 600 MG TABLET PO SCH (22:00)
[2017-05-18] MEDS: metroNIDAZOLE INJ 500 MG in PREMIX 1 EACH IV SCH (22:00)
[2017-05-18] MEDS: DOCUSATE SODIUM 100 MG CAPSULE PO SCH (22:26)
[2017-05-19] MEDS: INSULIN LISPRO 100 UNIT/ML SUBCUT SCH ×4 (01:45→17:54)
[2017-05-19] MEDS: metroNIDAZOLE INJ 500 MG in PREMIX 1 EACH IV SCH ×4 (02:04→22:05)
[2017-05-19 04:50] LABS: Basophils # 0.1 10*3/uL (0.0-0.2); Basophils % 1.1 % (0.0-0.8); Eosinophils # 0.2 10*3/uL (0.0-0.87); Eosinophils % 2.4 % (0.00-10.9); Hematocrit 36.6 VOL% (35.7-47.0); Hemoglobin 11.8 GM/DL (12.0-16.0); Immature Granulocytes % 0.5 %; Immature Granulocytes Absolute 0.03 #; Lymphocytes # 1.6 10*3/uL (1.4-4.0); Lymphocytes % 26.1 % (21.3-54.2); Mean Corpuscular HGB Conc 32.2 GM/DL (32-36); Mean Corpuscular Hemoglobin 29 PG (27-34); Mean Corpuscular Volume 88.4 FL (87-102); Mean Platelet Volume 11.2 FL (9.6-12.0); Monocytes # 0.6 10*3/uL (0.11-0.8); Monocytes % 8.8 % (1.7-12.7); Neutrophils # 3.8 10*3/uL (1.4-7.4); Neutrophils % 61.1 % (38.7-73.9); Platelet Count 194 T/CUMM (130-400); Red Blood Count 4.14 MC/CUMM (3.8-5.5); Red Cell Distribution Width 15.8 % (9.3-17.3); White Blood Count 6.2 T/CUMM (4-12)
[2017-05-19 05:07] LABS: Calcium 7.6 MG/DL (8.5-10.1); Osmolality,Calculated 283.8 MOS/KG (273-304); Potassium 3.5 MMOL/L (3.5-5.1)
[2017-05-19] MEDS: ONDANSETRON 4 MG/2 ML VIAL IV PRN ×3 (05:11→22:08)
[2017-05-19] MEDS ORDERED: fentaNYL 50 MCG/HR PATCH TRANSDERM SCH (09:00)
[2017-05-19] MEDS ORDERED: NON-FORMULARY MEDICATION (Potassium Chloride [Potassium Chloride] 20 MEQ) PO SCH (09:00)
[2017-05-19] MEDS ORDERED: NON-FORMULARY MEDICATION (Nebivolol Hcl [Bystolic] 2.5 MG) PO SCH (09:00)
[2017-05-19] MEDS ORDERED: PANTOPRAZOLE 40 MG VIAL IV SCH (09:00)
[2017-05-19] MEDS ORDERED: PANTOPRAZOLE 40 MG TABLET PO SCH (09:00)
[2017-05-19] MEDS: SODIUM CHLOR 0.9% KCL 20 MEQ 20 MEQ/1,000 ML BAG IV SCH ×3 (09:11→22:37)
[2017-05-19] MEDS: PANTOPRAZOLE 40 MG VIAL IV SCH ×2 (09:11→22:06)
[2017-05-19] MEDS: DOCUSATE SODIUM 100 MG CAPSULE PO SCH ×2 (09:12→22:04)
[2017-05-19] MEDS: GABAPENTIN 600 MG TABLET PO SCH ×3 (09:13→22:04)
[2017-05-19] MEDS: MORPHINE 2 MG/1 ML SYRINGE IV PRN ×3 (11:53→22:09)
[2017-05-19] MEDS: ENOXAPARIN 40 MG/0.4 ML SYRINGE SUBCUT SCH (16:57)
[2017-05-19] MEDS: LEVOFLOXACIN INJ 500 MG in PREMIX 1 EACH IV SCH (16:57)
[2017-05-20] MEDS: INSULIN LISPRO 100 UNIT/ML SUBCUT SCH ×3 (00:35→12:20)
[2017-05-20] MEDS: metroNIDAZOLE INJ 500 MG in PREMIX 1 EACH IV SCH ×2 (02:08→08:28)
[2017-05-20 03:20] LABS: Basophils # 0.1 10*3/uL (0.0-0.2); Eosinophils # 0.2 10*3/uL (0.0-0.87); Eosinophils % 3.4 % (0.00-10.9); Hematocrit 38.7 VOL% (35.7-47.0); Hemoglobin 12.2 GM/DL (12.0-16.0); Immature Granulocytes % 0.7 %; Immature Granulocytes Absolute 0.05 #; Lymphocytes # 1.8 10*3/uL (1.4-4.0); Lymphocytes % 26.7 % (21.3-54.2); Mean Corpuscular HGB Conc 31.5 GM/DL (32-36); Mean Corpuscular Hemoglobin 28 PG (27-34); Mean Platelet Volume 11.6 FL (9.6-12.0); Monocytes # 0.6 10*3/uL (0.11-0.8); Monocytes % 9.2 % (1.7-12.7); Platelet Count 227 T/CUMM (130-400); Red Cell Distribution Width 15.9 % (9.3-17.3); White Blood Count 6.9 T/CUMM (4-12)
[2017-05-20 03:44] LABS: Calcium 7.8 MG/DL (8.5-10.1); Potassium 3.8 MMOL/L (3.5-5.1)
[2017-05-20] MEDS: SODIUM CHLOR 0.9% KCL 20 MEQ 20 MEQ/1,000 ML BAG IV SCH (06:35)
[2017-05-20] MEDS: PANTOPRAZOLE 40 MG VIAL IV SCH (08:28)
[2017-05-20] MEDS: GABAPENTIN 600 MG TABLET PO SCH (08:28)
[2017-05-20] MEDS: DOCUSATE SODIUM 100 MG CAPSULE PO SCH (08:28)
[2017-05-20] MEDS ORDERED: KETOROLAC 60 MG/2 ML VIAL IM ONE (10:27)
[2017-05-20] MEDS ORDERED: FLUCONAZOLE 100 MG TABLET PO ONE (10:27)
[2017-05-20 12:21] VITALS: BP 127/66
[2017-05-20] MEDS ORDERED: POLYETHYLENE GLYCOL POWDER 17 GM PACK PO SCH (21:00)
[2017-05-23] MEDS ORDERED: ERGOCALCIFEROL 50,000 UNIT CAPSULE PO SCH (09:00)
== END 2017-05-20 13:42 | disposition home or self-care (01) | DRG 392 ==
LOC: N.ED 07:47 → N.EDINP 12:21 → N.5E 14:25
PROVIDERS: ADMIT Family Medicine; ATTEND Family Medicine

== ENCOUNTER 2017-09-05 10:01 | Inpatient (IN) ==
[2017-09-05] MEDS ORDERED: ACETAMINOPHEN 325 MG TABLET PO PRN (11:01)
[2017-09-05 11:49] LABS: Basophils # 0.1 10*3/uL (0.0-0.2); Basophils % 0.4 % (0.0-0.8); Eosinophils # 0.2 10*3/uL (0.0-0.87); Eosinophils % 1.1 % (0.00-10.9); Hematocrit 40.2 VOL% (35.7-47.0); Hemoglobin 12.8 GM/DL (12.0-16.0); Immature Granulocytes % 0.6 %; Immature Granulocytes Absolute 0.08 #; Mean Corpuscular HGB Conc 31.8 GM/DL (32-36); Mean Corpuscular Hemoglobin 29 PG (27-34); Mean Platelet Volume 11.2 FL (9.6-12.0); Monocytes # 0.9 10*3/uL (0.11-0.8); Monocytes % 6.2 % (1.7-12.7); Neutrophils # 10.8 10*3/uL (1.4-7.4); Neutrophils % 77.7 % (38.7-73.9); Platelet Count 242 T/CUMM (130-400); Red Blood Count 4.42 MC/CUMM (3.8-5.5); Red Cell Distribution Width 15.1 % (9.3-17.3)
[2017-09-05 12:08] LABS: Calcium 8.4 MG/DL (8.5-10.1); Osmolality,Calculated 282.4 MOS/KG (273-304); Potassium 3.5 MMOL/L (3.5-5.1)
[2017-09-05 12:13] LABS: Albumin 3.2 G/DL (3.4-5.0); Bilirubin,Direct 0.16 MG/DL (0.0-0.20); Bilirubin,Indirect 0.7 MG/DL (0.0-1.0); Bilirubin,Total 0.9 MG/DL (0.2-1.0); Total Protein 6.3 G/DL (6.4-8.3)
[2017-09-05] MEDS: GABAPENTIN 600 MG TABLET PO SCH ×4 (12:31→21:20)
[2017-09-05] MEDS: PANTOPRAZOLE 40 MG VIAL IV SCH (12:50)
[2017-09-05] MEDS: DEXTROSE 5% NACL 0.9% 1,000 ML IV SCH ×2 (12:50→21:16)
[2017-09-05] MEDS ORDERED: CLOTRIMAZOLE/BETAMETHASONE CREAM 15 GM TUBE TOP PRN (12:59)
[2017-09-05] MEDS ORDERED: DESOXIMETASONE 0.25% TOP PRN (12:59)
[2017-09-05] MEDS ORDERED: DEXTROSE 50% 25 GM/50 ML VIAL IV PRN (13:00)
[2017-09-05] MEDS ORDERED: GLUCAGON 1 MG VIAL IM PRN (13:00)
[2017-09-05 15:27] LABS: Apearance,Urine CLEAR (Clear); Bacteria,Urine Occasional /HPF (Few); Bilirubin,Urine Negative (Negative); Blood, Urine Moderate mg/dL (Negative); Glucose,Urine (UA) Negative (Negative); Ketones,Urine Negative (Negative); Mucus,Urine Occasional /LPF (Occasional); Nitrite,Urine Negative (Negative); Protein,Urine Negative; RBC,Urine 1 /HPF (0-4); Squamous Epithelial Cell,Urine Occasional /HPF (0-10); Urine Color Yellow (Yellow); Urine Specific Gravity 1.009 (1.001-1.035); Urine Urobilinogen < 2.0 EU/DL (0.2-1.0); WBC,Urine <1 /HPF (0-6)
[2017-09-05] MEDS: ONDANSETRON 4 MG/2 ML VIAL IV PRN (17:29)
[2017-09-05] MEDS: INSULIN LISPRO 100 UNIT/ML SUBCUT SCH ×2 (17:34→23:37)
[2017-09-05] MEDS ORDERED: ALBUTEROL 2.5 MG/3 ML NEB RESP TX PRN (19:00)
[2017-09-05] MEDS ORDERED: ZALEPLON 5 MG CAPSULE PO PRN (21:00)
[2017-09-05] MEDS: PROMETHAZINE 25 MG/1 ML VIAL IM PRN (21:17)
[2017-09-05] MEDS: KETOROLAC 30 MG/1 ML VIAL IV PRN (21:18)
[2017-09-05] MEDS: metroNIDAZOLE INJ 500 MG in PREMIX 1 EACH IV SCH (21:18)
[2017-09-05] MEDS: DOCUSATE SODIUM 100 MG CAPSULE PO SCH (21:18)
[2017-09-05] MEDS: LEVOFLOXACIN INJ 750 MG in PREMIX 1 EACH IV SCH (22:31)
[2017-09-06] MEDS: ALBUTEROL/IPRATROPIUM 3 ML NEB RESP TX PRN (01:26)
[2017-09-06] MEDS: DEXTROSE 5% NACL 0.9% 1,000 ML IV SCH ×3 (03:32→20:23)
[2017-09-06] MEDS: metroNIDAZOLE INJ 500 MG in PREMIX 1 EACH IV SCH ×3 (04:18→20:20)
[2017-09-06] MEDS: PROMETHAZINE 25 MG/1 ML VIAL IM PRN ×3 (05:34→23:23)
[2017-09-06] MEDS: INSULIN LISPRO 100 UNIT/ML SUBCUT SCH ×3 (06:23→17:53)
[2017-09-06 06:40] LABS: Basophils % 0.4 % (0.0-0.8); Eosinophils # 0.4 10*3/uL (0.0-0.87); Eosinophils % 4.1 % (0.00-10.9); Hematocrit 36.1 VOL% (35.7-47.0); Hemoglobin 11.5 GM/DL (12.0-16.0); Immature Granulocytes % 1.1 %; Lymphocytes # 1.4 10*3/uL (1.4-4.0); Mean Corpuscular HGB Conc 31.9 GM/DL (32-36); Mean Corpuscular Hemoglobin 28 PG (27-34); Mean Corpuscular Volume 88.7 FL (87-102); Mean Platelet Volume 11.3 FL (9.6-12.0); Monocytes # 0.8 10*3/uL (0.11-0.8); Neutrophils # 6.2 10*3/uL (1.4-7.4); Neutrophils % 69.4 % (38.7-73.9); Platelet Count 203 T/CUMM (130-400); Red Blood Count 4.07 MC/CUMM (3.8-5.5)
[2017-09-06 07:07] LABS: Calcium 8.1 MG/DL (8.5-10.1); Osmolality,Calculated 279.3 MOS/KG (273-304); Potassium 3.2 MMOL/L (3.5-5.1)
[2017-09-06] MEDS: DOCUSATE SODIUM 100 MG CAPSULE PO SCH ×2 (08:08→20:24)
[2017-09-06] MEDS: GABAPENTIN 600 MG TABLET PO SCH ×5 (08:08→20:24)
[2017-09-06] MEDS ORDERED: metOLazone 5 MG TABLET PO PRN (09:00)
[2017-09-06] MEDS: POTASSIUM CHLORIDE RIDER 10 MEQ in PREMIX 1 EACH IV PRN ×4 (09:12→15:35)
[2017-09-06] MEDS: PANTOPRAZOLE 40 MG VIAL IV SCH (09:12)
[2017-09-06] MEDS: NEBIVOLOL 5 MG TABLET PO SCH (09:13)
[2017-09-06] MEDS: KETOROLAC 30 MG/1 ML VIAL IV PRN ×2 (09:17→20:23)
[2017-09-06] MEDS: LEVOFLOXACIN INJ 750 MG in PREMIX 1 EACH IV SCH (21:25)
[2017-09-07] MEDS: INSULIN LISPRO 100 UNIT/ML SUBCUT SCH ×4 (00:03→18:06)
[2017-09-07] MEDS: DEXTROSE 5% NACL 0.9% 1,000 ML IV SCH ×3 (02:34→20:39)
[2017-09-07] MEDS: metroNIDAZOLE INJ 500 MG in PREMIX 1 EACH IV SCH ×3 (04:45→20:40)
[2017-09-07 06:33] LABS: Basophils # 0.1 10*3/uL (0.0-0.2); Basophils % 0.6 % (0.0-0.8); Eosinophils # 0.5 10*3/uL (0.0-0.87); Eosinophils % 5.7 % (0.00-10.9); Hematocrit 37.2 VOL% (35.7-47.0); Hemoglobin 11.9 GM/DL (12.0-16.0); Immature Granulocytes % 1.4 %; Immature Granulocytes Absolute 0.11 #; Lymphocytes # 1.3 10*3/uL (1.4-4.0); Lymphocytes % 16.4 % (21.3-54.2); Mean Corpuscular Hemoglobin 29 PG (27-34); Mean Corpuscular Volume 90.1 FL (87-102); Mean Platelet Volume 11.5 FL (9.6-12.0); Monocytes # 0.7 10*3/uL (0.11-0.8); Monocytes % 8.8 % (1.7-12.7); Neutrophils # 5.4 10*3/uL (1.4-7.4); Neutrophils % 67.1 % (38.7-73.9); Platelet Count 216 T/CUMM (130-400); Red Blood Count 4.13 MC/CUMM (3.8-5.5); Red Cell Distribution Width 15.3 % (9.3-17.3); White Blood Count 8.1 T/CUMM (4-12)
[2017-09-07] MEDS: PROMETHAZINE 25 MG/1 ML VIAL IM PRN ×2 (06:48→15:29)
[2017-09-07 07:06] LABS: Calcium 8.1 MG/DL (8.5-10.1); Potassium 3.6 MMOL/L (3.5-5.1)
[2017-09-07] MEDS: GABAPENTIN 600 MG TABLET PO SCH ×4 (09:08→20:44)
[2017-09-07] MEDS: NEBIVOLOL 5 MG TABLET PO SCH (09:08)
[2017-09-07] MEDS: DOCUSATE SODIUM 100 MG CAPSULE PO SCH ×2 (09:08→20:44)
[2017-09-07] MEDS: PANTOPRAZOLE 40 MG VIAL IV SCH (09:08)
[2017-09-07] MEDS: KETOROLAC 30 MG/1 ML VIAL IV PRN ×2 (09:17→20:43)
[2017-09-07] MEDS: ONDANSETRON 4 MG/2 ML VIAL IV PRN ×2 (11:18→20:42)
[2017-09-07] MEDS: ALBUTEROL/IPRATROPIUM 3 ML NEB RESP TX PRN (20:26)
[2017-09-07] MEDS: LEVOFLOXACIN INJ 750 MG in PREMIX 1 EACH IV SCH (20:42)
[2017-09-08] MEDS: INSULIN LISPRO 100 UNIT/ML SUBCUT SCH ×4 (01:52→17:56)
[2017-09-08] MEDS: metroNIDAZOLE INJ 500 MG in PREMIX 1 EACH IV SCH ×3 (04:46→20:59)
[2017-09-08 06:46] LABS: Basophils % 0.7 % (0.0-0.8); Eosinophils # 0.4 10*3/uL (0.0-0.87); Eosinophils % 6.2 % (0.00-10.9); Hematocrit 36.3 VOL% (35.7-47.0); Hemoglobin 11.2 GM/DL (12.0-16.0); Immature Granulocytes % 1.4 %; Immature Granulocytes Absolute 0.08 #; Lymphocytes # 1.1 10*3/uL (1.4-4.0); Lymphocytes % 18.3 % (21.3-54.2); Mean Corpuscular HGB Conc 30.9 GM/DL (32-36); Mean Corpuscular Hemoglobin 28 PG (27-34); Mean Corpuscular Volume 91.9 FL (87-102); Mean Platelet Volume 11.4 FL (9.6-12.0); Monocytes # 0.6 10*3/uL (0.11-0.8); Monocytes % 9.5 % (1.7-12.7); Neutrophils # 3.7 10*3/uL (1.4-7.4); Neutrophils % 63.9 % (38.7-73.9); Platelet Count 205 T/CUMM (130-400); Red Blood Count 3.95 MC/CUMM (3.8-5.5); Red Cell Distribution Width 15.5 % (9.3-17.3); White Blood Count 5.8 T/CUMM (4-12)
[2017-09-08 07:10] LABS: Calcium 8.2 MG/DL (8.5-10.1); Osmolality,Calculated 292.4 MOS/KG (273-304); Potassium 3.8 MMOL/L (3.5-5.1)
[2017-09-08] MEDS: PANTOPRAZOLE 40 MG VIAL IV SCH (09:33)
[2017-09-08] MEDS: NEBIVOLOL 5 MG TABLET PO SCH (09:34)
[2017-09-08] MEDS: GABAPENTIN 600 MG TABLET PO SCH ×4 (09:34→20:59)
[2017-09-08] MEDS: DOCUSATE SODIUM 100 MG CAPSULE PO SCH ×2 (09:41→21:03)
[2017-09-08] MEDS: DEXTROSE 5% NACL 0.9% 1,000 ML IV SCH (13:25)
[2017-09-08] MEDS ORDERED: PHENOL 1.4% THROAT SPRAY 177 ML BOTTLE PO PRN (14:32)
[2017-09-08] MEDS: methylPREDNISolone SOD SUC 40 MG/1 ML VIAL IV SCH (16:49)
[2017-09-08] MEDS: PROMETHAZINE 25 MG/1 ML VIAL IM PRN (16:53)
[2017-09-08] MEDS: KETOROLAC 30 MG/1 ML VIAL IV PRN (17:12)
[2017-09-08] MEDS: LEVOFLOXACIN INJ 750 MG in PREMIX 1 EACH IV SCH (21:00)
[2017-09-08] MEDS: CLOTRIMAZOLE/BETAMETHASONE CREAM 15 GM TUBE TOP SCH (21:06)
[2017-09-08] MEDS: ALBUTEROL/IPRATROPIUM 3 ML NEB RESP TX SCH (21:12)
[2017-09-08] MEDS: BUDESONIDE 0.25 MG/2 ML NEB RESP TX SCH (21:12)
[2017-09-09] MEDS: INSULIN LISPRO 100 UNIT/ML SUBCUT SCH ×2 (00:06→06:31)
[2017-09-09] MEDS: methylPREDNISolone SOD SUC 40 MG/1 ML VIAL IV SCH ×2 (00:07→08:43)
[2017-09-09] MEDS: PROMETHAZINE 25 MG/1 ML VIAL IM PRN (01:08)
[2017-09-09] MEDS: ALBUTEROL/IPRATROPIUM 3 ML NEB RESP TX SCH ×2 (01:44→07:38)
[2017-09-09] MEDS: metroNIDAZOLE INJ 500 MG in PREMIX 1 EACH IV SCH (04:04)
[2017-09-09 06:33] LABS: Basophils % 0.1 % (0.0-0.8); Hematocrit 40.4 VOL% (35.7-47.0); Hemoglobin 12.7 GM/DL (12.0-16.0); Immature Granulocytes % 1.9 %; Immature Granulocytes Absolute 0.16 #; Lymphocytes # 0.5 10*3/uL (1.4-4.0); Lymphocytes % 5.5 % (21.3-54.2); Mean Corpuscular HGB Conc 31.4 GM/DL (32-36); Mean Corpuscular Hemoglobin 29 PG (27-34); Mean Platelet Volume 11.4 FL (9.6-12.0); Monocytes # 0.1 10*3/uL (0.11-0.8); Monocytes % 0.9 % (1.7-12.7); Neutrophils # 7.9 10*3/uL (1.4-7.4); Neutrophils % 91.6 % (38.7-73.9); Platelet Count 242 T/CUMM (130-400); Red Blood Count 4.44 MC/CUMM (3.8-5.5); Red Cell Distribution Width 15.1 % (9.3-17.3); White Blood Count 8.6 T/CUMM (4-12)
[2017-09-09 06:56] LABS: Band Neutrophils 4 % (0-10); Lymphocytes 8 % (20-55); Macrocytosis 1+; Platelet Estimate Normal; Segmented Neutrophils 87 % (50-85); Total Cells Counted 100
[2017-09-09] MEDS: BUDESONIDE 0.25 MG/2 ML NEB RESP TX SCH (07:38)
[2017-09-09] MEDS: GABAPENTIN 600 MG TABLET PO SCH (08:40)
[2017-09-09] MEDS: NEBIVOLOL 5 MG TABLET PO SCH (08:40)
[2017-09-09] MEDS: DOCUSATE SODIUM 100 MG CAPSULE PO SCH (08:41)
[2017-09-09] MEDS: PANTOPRAZOLE 40 MG VIAL IV SCH (08:41)
[2017-09-09] MEDS: CLOTRIMAZOLE/BETAMETHASONE CREAM 15 GM TUBE TOP SCH (08:43)
[2017-09-09] MEDS: KETOROLAC 30 MG/1 ML VIAL IV PRN (08:51)
[2017-09-09] MEDS: DEXTROSE 5% NACL 0.9% 1,000 ML IV SCH (11:35)
[2017-09-09 12:06] VITALS: BP 132/63
== END 2017-09-09 11:58 | disposition home or self-care (01) | DRG 392 ==
LOC: N.5E
PROVIDERS: ADMIT Family Medicine; ATTEND Family Medicine

== ENCOUNTER 2017-09-14 06:21 | Inpatient (IN) ==
[2017-09-14] MEDS ORDERED: SODIUM CHLORIDE 0.9% 500 ML IV STA (06:47)
[2017-09-14] MEDS ORDERED: metroNIDAZOLE INJ 500 MG in PREMIX 1 EACH IV STA (06:47)
[2017-09-14] MEDS ORDERED: ONDANSETRON 4 MG/2 ML VIAL IV STA (06:47)
[2017-09-14] MEDS ORDERED: ONDANSETRON 4 MG/2 ML VIAL ONE (06:58)
[2017-09-14] MEDS ORDERED: metroNIDAZOLE 500 MG/100 ML PREMIX IV ONE (06:58)
[2017-09-14 08:00] LABS: Basophils # 0.1 10*3/uL (0.0-0.2); Basophils % 0.7 % (0.0-0.8); Eosinophils # 0.2 10*3/uL (0.0-0.87); Eosinophils % 1.3 % (0.00-10.9); Hematocrit 40.3 VOL% (35.7-47.0); Hemoglobin 12.9 GM/DL (12.0-16.0); Immature Granulocytes % 2.5 %; Immature Granulocytes Absolute 0.37 #; Lymphocytes # 2.6 10*3/uL (1.4-4.0); Lymphocytes % 17.8 % (21.3-54.2); Mean Corpuscular Hemoglobin 29 PG (27-34); Mean Platelet Volume 10.7 FL (9.6-12.0); Monocytes % 6.5 % (1.7-12.7); Neutrophils # 10.4 10*3/uL (1.4-7.4); Neutrophils % 71.2 % (38.7-73.9); Platelet Count 249 T/CUMM (130-400); Red Blood Count 4.48 MC/CUMM (3.8-5.5); Red Cell Distribution Width 15.6 % (9.3-17.3); White Blood Count 14.6 T/CUMM (4-12)
[2017-09-14 08:02] LABS: Apearance,Urine Slightly Hazy (Clear); Bacteria,Urine Occasional /HPF (Few); Bilirubin,Urine Negative (Negative); Blood, Urine Negative (Negative); Glucose,Urine (UA) Negative (Negative); Hyaline Casts,Urine 4 /LPF (0-3); Ketones,Urine Negative (Negative); Mucus,Urine Moderate /LPF (Occasional); Nitrite,Urine Negative (Negative); Protein,Urine 30 MG/DL; RBC,Urine 2 /HPF (0-4); Squamous Epithelial Cell,Urine Occasional /HPF (0-10); Urine Color Amber (Yellow); Urine Specific Gravity 1.019 (1.001-1.035); Urine Urobilinogen < 2.0 EU/DL (0.2-1.0); WBC,Urine 6 /HPF (0-6)
[2017-09-14] MEDS ORDERED: KETOROLAC 30 MG/1 ML VIAL ONE (08:19)
[2017-09-14] MEDS ORDERED: KETOROLAC 30 MG/1 ML VIAL IV STA (08:25)
[2017-09-14 08:36] LABS: Bilirubin,Total 0.7 MG/DL (0.2-1.0); Calcium 8.2 MG/DL (8.5-10.1); Osmolality,Calculated 283.3 MOS/KG (273-304); Potassium 4.1 MMOL/L (3.5-5.1); Total Protein 6.1 G/DL (6.4-8.3)
[2017-09-14] MEDS ORDERED: LEVOFLOXACIN INJ 500 MG in PREMIX 1 EACH IV STA ×2 (08:48→09:33)
[2017-09-14] MEDS ORDERED: LEVOFLOXACIN INJ 0 ML IV ONE (08:50)
[2017-09-14] MEDS ORDERED: ACETAMINOPHEN 325 MG TABLET PO PRN (09:33)
[2017-09-14] MEDS ORDERED: PANTOPRAZOLE 40 MG TABLET PO SCH (09:33)
[2017-09-14] MEDS: SODIUM CHLORIDE 0.9% 1,000 ML IV SCH ×2 (09:53→17:23)
[2017-09-14] MEDS: DOCUSATE SODIUM 100 MG CAPSULE PO SCH ×2 (10:42→21:37)
[2017-09-14] MEDS ORDERED: MORPHINE 2 MG/1 ML SYRINGE IV ONE (11:28)
[2017-09-14] MEDS ORDERED: ALBUTEROL/IPRATROPIUM 3 ML NEB RESP TX PRN (11:57)
[2017-09-14] MEDS: fentaNYL 25 MCG/HR PATCH TRANSDERM SCH (12:08)
[2017-09-14] MEDS ORDERED: MORPHINE 2 MG/1 ML SYRINGE IV PRN (12:14)
[2017-09-14] MEDS: metroNIDAZOLE INJ 500 MG in PREMIX 1 EACH IV SCH ×2 (16:37→23:41)
[2017-09-14] MEDS: ONDANSETRON 4 MG/2 ML VIAL IV PRN (16:55)
[2017-09-14] MEDS: MORPHINE 2 MG/1 ML SYRINGE IV PRN ×2 (16:59→22:09)
[2017-09-14] MEDS: ALBUTEROL 2.5 MG/3 ML NEB RESP TX SCH (19:06)
[2017-09-14] MEDS: PANTOPRAZOLE 40 MG VIAL IV SCH (21:30)
[2017-09-14] MEDS: PROMETHAZINE 25 MG/1 ML VIAL IM PRN (21:32)
[2017-09-15] MEDS: MORPHINE 2 MG/1 ML SYRINGE IV PRN ×4 (03:49→20:49)
[2017-09-15] MEDS: SODIUM CHLORIDE 0.9% 1,000 ML IV SCH ×3 (04:13→23:05)
[2017-09-15 06:57] LABS: Basophils # 0.1 10*3/uL (0.0-0.2); Basophils % 0.7 % (0.0-0.8); Eosinophils # 0.3 10*3/uL (0.0-0.87); Eosinophils % 2.6 % (0.00-10.9); Hematocrit 35.7 VOL% (35.7-47.0); Immature Granulocytes Absolute 0.32 #; Lymphocytes # 2.2 10*3/uL (1.4-4.0); Lymphocytes % 20.5 % (21.3-54.2); Mean Corpuscular HGB Conc 30.8 GM/DL (32-36); Mean Corpuscular Hemoglobin 29 PG (27-34); Mean Corpuscular Volume 92.5 FL (87-102); Monocytes # 0.8 10*3/uL (0.11-0.8); Monocytes % 7.8 % (1.7-12.7); Neutrophils % 65.4 % (38.7-73.9); Platelet Count 191 T/CUMM (130-400); Red Blood Count 3.86 MC/CUMM (3.8-5.5); Red Cell Distribution Width 15.7 % (9.3-17.3); White Blood Count 10.7 T/CUMM (4-12)
[2017-09-15 07:22] LABS: Calcium 7.6 MG/DL (8.5-10.1); Potassium 4.2 MMOL/L (3.5-5.1)
[2017-09-15] MEDS: ALBUTEROL 2.5 MG/3 ML NEB RESP TX SCH ×2 (07:27→20:30)
[2017-09-15] MEDS: PANTOPRAZOLE 40 MG VIAL IV SCH ×2 (08:24→20:52)
[2017-09-15] MEDS: DOCUSATE SODIUM 100 MG CAPSULE PO SCH ×2 (08:26→20:52)
[2017-09-15] MEDS: metroNIDAZOLE INJ 500 MG in PREMIX 1 EACH IV SCH ×2 (08:31→15:19)
[2017-09-15] MEDS: LEVOFLOXACIN INJ 500 MG in PREMIX 1 EACH IV SCH (10:25)
[2017-09-15] MEDS: ENOXAPARIN 40 MG/0.4 ML SYRINGE SUBCUT SCH (10:30)
[2017-09-15] MEDS: PROMETHAZINE 25 MG/1 ML VIAL IM PRN ×2 (12:18→20:43)
[2017-09-15] MEDS: ONDANSETRON 4 MG/2 ML VIAL IV PRN (15:13)
[2017-09-16] MEDS: metroNIDAZOLE INJ 500 MG in PREMIX 1 EACH IV SCH ×3 (00:55→16:55)
[2017-09-16] MEDS: MORPHINE 2 MG/1 ML SYRINGE IV PRN ×4 (03:41→23:59)
[2017-09-16 06:03] LABS: Basophils # 0.1 10*3/uL (0.0-0.2); Basophils % 0.7 % (0.0-0.8); Eosinophils # 0.4 10*3/uL (0.0-0.87); Eosinophils % 4.4 % (0.00-10.9); Hematocrit 33.6 VOL% (35.7-47.0); Hemoglobin 10.4 GM/DL (12.0-16.0); Immature Granulocytes % 1.9 %; Immature Granulocytes Absolute 0.15 #; Lymphocytes # 1.5 10*3/uL (1.4-4.0); Lymphocytes % 18.1 % (21.3-54.2); Mean Corpuscular Hemoglobin 29 PG (27-34); Mean Corpuscular Volume 92.6 FL (87-102); Mean Platelet Volume 10.4 FL (9.6-12.0); Monocytes # 0.6 10*3/uL (0.11-0.8); Monocytes % 7.2 % (1.7-12.7); Neutrophils # 5.4 10*3/uL (1.4-7.4); Neutrophils % 67.7 % (38.7-73.9); Platelet Count 181 T/CUMM (130-400); Red Blood Count 3.63 MC/CUMM (3.8-5.5); Red Cell Distribution Width 15.1 % (9.3-17.3)
[2017-09-16 06:31] LABS: Calcium 7.5 MG/DL (8.5-10.1); Osmolality,Calculated 283.8 MOS/KG (273-304); Potassium 3.9 MMOL/L (3.5-5.1)
[2017-09-16] MEDS: ALBUTEROL 2.5 MG/3 ML NEB RESP TX SCH ×2 (07:20→18:57)
[2017-09-16] MEDS: SODIUM CHLORIDE 0.9% 1,000 ML IV SCH ×3 (09:35→18:25)
[2017-09-16] MEDS: DOCUSATE SODIUM 100 MG CAPSULE PO SCH ×3 (09:40→21:32)
[2017-09-16] MEDS: PANTOPRAZOLE 40 MG VIAL IV SCH ×2 (09:40→21:32)
[2017-09-16] MEDS ORDERED: CLOTRIMAZOLE/BETAMETHASONE CREAM 15 GM TUBE TOP PRN (09:42)
[2017-09-16] MEDS ORDERED: DESOXIMETASONE 0.25% TOP PRN (09:42)
[2017-09-16] MEDS ORDERED: metOLazone 5 MG TABLET PO PRN (09:42)
[2017-09-16] MEDS ORDERED: ERGOCALCIFEROL 50,000 UNIT CAPSULE PO SCH (10:00)
[2017-09-16] MEDS: ENOXAPARIN 40 MG/0.4 ML SYRINGE SUBCUT SCH (11:14)
[2017-09-16] MEDS: LEVOFLOXACIN INJ 500 MG in PREMIX 1 EACH IV SCH (11:16)
[2017-09-16] MEDS: ONDANSETRON 4 MG/2 ML VIAL IV PRN (11:22)
[2017-09-16] MEDS: GABAPENTIN 600 MG TABLET PO SCH ×3 (13:57→21:32)
[2017-09-16] MEDS: PROMETHAZINE 25 MG/1 ML VIAL IM PRN (18:24)
[2017-09-16] MEDS: PRAMIPEXOLE 1 MG TABLET PO SCH (21:31)
[2017-09-17] MEDS: metroNIDAZOLE INJ 500 MG in PREMIX 1 EACH IV SCH ×3 (00:02→17:48)
[2017-09-17] MEDS: SODIUM CHLORIDE 0.9% 1,000 ML IV SCH ×2 (01:30→08:59)
[2017-09-17 05:28] LABS: Basophils # 0.1 10*3/uL (0.0-0.2); Basophils % 0.7 % (0.0-0.8); Eosinophils # 0.2 10*3/uL (0.0-0.87); Eosinophils % 2.4 % (0.00-10.9); Hematocrit 36.4 VOL% (35.7-47.0); Hemoglobin 11.5 GM/DL (12.0-16.0); Lymphocytes # 1.1 10*3/uL (1.4-4.0); Lymphocytes % 16.7 % (21.3-54.2); Mean Corpuscular HGB Conc 31.6 GM/DL (32-36); Mean Corpuscular Hemoglobin 29 PG (27-34); Mean Corpuscular Volume 90.8 FL (87-102); Monocytes # 0.5 10*3/uL (0.11-0.8); Monocytes % 6.9 % (1.7-12.7); Neutrophils # 4.8 10*3/uL (1.4-7.4); Neutrophils % 70.3 % (38.7-73.9); Platelet Count 218 T/CUMM (130-400); Red Blood Count 4.01 MC/CUMM (3.8-5.5); White Blood Count 6.8 T/CUMM (4-12)
[2017-09-17 06:00] LABS: Calcium 7.8 MG/DL (8.5-10.1)
[2017-09-17 06:10] LABS: Risk Ratio 3.35; VLDL CHOLESTEROL 13.8 MG/DL
[2017-09-17] MEDS: ALBUTEROL 2.5 MG/3 ML NEB RESP TX SCH ×2 (07:41→19:33)
[2017-09-17] MEDS: PANTOPRAZOLE 40 MG VIAL IV SCH ×2 (08:50→20:59)
[2017-09-17] MEDS: PROMETHAZINE 25 MG/1 ML VIAL IM PRN (08:51)
[2017-09-17] MEDS: MORPHINE 2 MG/1 ML SYRINGE IV PRN (08:51)
[2017-09-17] MEDS: LEVOFLOXACIN INJ 500 MG in PREMIX 1 EACH IV SCH (09:48)
[2017-09-17] MEDS: NEBIVOLOL 5 MG TABLET PO SCH (10:07)
[2017-09-17] MEDS: fentaNYL 25 MCG/HR PATCH TRANSDERM SCH (10:08)
[2017-09-17] MEDS: DOCUSATE SODIUM 100 MG CAPSULE PO SCH ×4 (10:08→21:01)
[2017-09-17] MEDS: ENOXAPARIN 40 MG/0.4 ML SYRINGE SUBCUT SCH (10:13)
[2017-09-17] MEDS: POTASSIUM CHLORIDE 20 MEQ TABLET PO SCH (10:13)
[2017-09-17] MEDS: PRAMIPEXOLE 1 MG TABLET PO SCH ×2 (10:15→20:58)
[2017-09-17] MEDS: GABAPENTIN 600 MG TABLET PO SCH ×4 (10:16→20:59)
[2017-09-17] MEDS: ONDANSETRON 4 MG/2 ML VIAL IV PRN ×2 (12:22→21:05)
[2017-09-17] MEDS: MORPHINE 10 MG/1 ML VIAL IV PRN ×2 (13:56→18:05)
[2017-09-18] MEDS: MORPHINE 10 MG/1 ML VIAL IV PRN ×3 (00:34→10:50)
[2017-09-18] MEDS: SODIUM CHLORIDE 0.9% 1,000 ML IV SCH (00:38)
[2017-09-18] MEDS: ONDANSETRON 4 MG/2 ML VIAL IV PRN ×2 (05:05→10:49)
[2017-09-18] MEDS: ALBUTEROL 2.5 MG/3 ML NEB RESP TX SCH (07:15)
[2017-09-18] MEDS ORDERED: FUROSEMIDE 40 MG TABLET PO SCH (09:00)
[2017-09-18] MEDS ORDERED: LEVOFLOXACIN INJ 750 MG in PREMIX 1 EACH IV SCH (09:00)
[2017-09-18] MEDS ORDERED: ERTAPENEM 1,000 MG in SODIUM CHLORIDE 0.9% 50 ML IV SCH (09:00)
[2017-09-18] MEDS: PROMETHAZINE 25 MG/1 ML VIAL IM PRN (09:03)
[2017-09-18] MEDS: ENOXAPARIN 40 MG/0.4 ML SYRINGE SUBCUT SCH (09:11)
[2017-09-18] MEDS: NEBIVOLOL 5 MG TABLET PO SCH (09:15)
[2017-09-18] MEDS: DOCUSATE SODIUM 100 MG CAPSULE PO SCH (09:15)
[2017-09-18] MEDS: PANTOPRAZOLE 40 MG VIAL IV SCH (09:16)
[2017-09-18] MEDS: GABAPENTIN 600 MG TABLET PO SCH ×2 (09:16→12:25)
[2017-09-18] MEDS: PRAMIPEXOLE 1 MG TABLET PO SCH (09:16)
[2017-09-18] MEDS: POTASSIUM CHLORIDE 20 MEQ TABLET PO SCH (09:16)
[2017-09-18 12:14] VITALS: BP 105/55
[2017-09-18] MEDS ORDERED: HEPARIN LOCK FLUSH 500 UNIT/5 ML SYRINGE IV ONE (14:33)
== END 2017-09-18 15:45 | disposition home or self-care (01) | DRG 392 ==
LOC: N.ED 06:21 → N.EDINP 06:21 → N.2E 09:25
PROVIDERS: ADMIT Family Medicine; ATTEND Family Medicine

== ENCOUNTER 2017-09-28 12:31 | Inpatient (IN) ==
[2017-09-28 14:07] LABS: Basophils # 0.1 10*3/uL (0.0-0.2); Basophils % 0.7 % (0.0-0.8); Eosinophils # 0.2 10*3/uL (0.0-0.87); Eosinophils % 2.3 % (0.00-10.9); Hematocrit 41.5 VOL% (35.7-47.0); Hemoglobin 13.2 GM/DL (12.0-16.0); Immature Granulocytes % 0.4 %; Immature Granulocytes Absolute 0.04 #; Lymphocytes # 1.8 10*3/uL (1.4-4.0); Lymphocytes % 18.8 % (21.3-54.2); Mean Corpuscular HGB Conc 31.8 GM/DL (32-36); Mean Corpuscular Hemoglobin 29 PG (27-34); Mean Corpuscular Volume 89.6 FL (87-102); Mean Platelet Volume 11.3 FL (9.6-12.0); Monocytes # 0.9 10*3/uL (0.11-0.8); Monocytes % 8.9 % (1.7-12.7); Neutrophils # 6.6 10*3/uL (1.4-7.4); Neutrophils % 68.9 % (38.7-73.9); Platelet Count 221 T/CUMM (130-400); Red Blood Count 4.63 MC/CUMM (3.8-5.5); Red Cell Distribution Width 14.8 % (9.3-17.3); White Blood Count 9.5 T/CUMM (4-12)
[2017-09-28 14:29] LABS: Lactic Acid 1.3 MMOL/L (0.4-2.0)
[2017-09-28 14:30] LABS: Albumin 3.2 G/DL (3.4-5.0); Bilirubin,Total 0.4 MG/DL (0.2-1.0); Calcium 8.2 MG/DL (8.5-10.1); Osmolality,Calculated 281.3 MOS/KG (273-304); Potassium 3.6 MMOL/L (3.5-5.1); Total Protein 6.5 G/DL (6.4-8.3)
[2017-09-28 14:32] LABS: Apearance,Urine CLEAR (Clear); Bilirubin,Urine Negative (Negative); Blood, Urine Negative (Negative); Glucose,Urine (UA) Negative (Negative); Ketones,Urine Negative (Negative); Mucus,Urine Occasional /LPF (Occasional); Nitrite,Urine Negative (Negative); Protein,Urine Negative; RBC,Urine 7 /HPF (0-4); Squamous Epithelial Cell,Urine Occasional /HPF (0-10); Urine Color Yellow (Yellow); Urine Specific Gravity 1.009 (1.001-1.035); Urine Urobilinogen < 2.0 EU/DL (0.2-1.0); WBC,Urine 58 /HPF (0-6)
[2017-09-28] MEDS ORDERED: ONDANSETRON 4 MG/2 ML VIAL IV STA (14:49)
[2017-09-28] MEDS ORDERED: MORPHINE 2 MG/1 ML SYRINGE IV STA (14:53)
[2017-09-28] MEDS ORDERED: ONDANSETRON 4 MG/2 ML VIAL ONE (14:58)
[2017-09-28] MEDS ORDERED: MORPHINE 4 MG/1 ML VIAL ONE (14:58)
[2017-09-28] MEDS ORDERED: MAGNESIUM SULF RIDER 4 GM in PREMIX 1 EACH IV PRN (16:18)
[2017-09-28] MEDS ORDERED: CIPROFLOXACIN INJ 400 MG in PREMIX 1 EACH IV SCH (16:30)
[2017-09-28] MEDS ORDERED: metroNIDAZOLE INJ 500 MG in PREMIX 1 EACH IV SCH ×2 (16:30→20:00)
[2017-09-28] MEDS: DEXTROSE 5% NACL 0.9% 1,000 ML IV SCH (17:48)
[2017-09-28] MEDS: MORPHINE 4 MG/1 ML VIAL IV PRN ×2 (18:21→23:13)
[2017-09-28] MEDS: ONDANSETRON 4 MG/2 ML VIAL IV PRN ×2 (18:25→23:09)
[2017-09-28] MEDS ORDERED: ERTAPENEM 1,000 MG VIAL IV SCH (19:30)
[2017-09-28] MEDS: ALBUTEROL 2.5 MG/3 ML NEB RESP TX SCH (21:21)
[2017-09-28] MEDS: PRAMIPEXOLE 1 MG TABLET PO SCH (21:49)
[2017-09-29] MEDS: DEXTROSE 5% NACL 0.9% 1,000 ML IV SCH ×2 (03:02→13:15)
[2017-09-29 04:05] LABS: Basophils # 0.1 10*3/uL (0.0-0.2); Basophils % 0.7 % (0.0-0.8); Eosinophils # 0.2 10*3/uL (0.0-0.87); Eosinophils % 1.9 % (0.00-10.9); Hematocrit 39.2 VOL% (35.7-47.0); Hemoglobin 12.8 GM/DL (12.0-16.0); Immature Granulocytes % 0.7 %; Immature Granulocytes Absolute 0.06 #; Lymphocytes # 1.8 10*3/uL (1.4-4.0); Lymphocytes % 20.6 % (21.3-54.2); Mean Corpuscular HGB Conc 32.7 GM/DL (32-36); Mean Corpuscular Hemoglobin 29 PG (27-34); Mean Corpuscular Volume 88.3 FL (87-102); Mean Platelet Volume 11.6 FL (9.6-12.0); Monocytes # 0.8 10*3/uL (0.11-0.8); Monocytes % 9.5 % (1.7-12.7); Neutrophils # 5.9 10*3/uL (1.4-7.4); Neutrophils % 66.6 % (38.7-73.9); Platelet Count 218 T/CUMM (130-400); Red Blood Count 4.44 MC/CUMM (3.8-5.5); Red Cell Distribution Width 15.2 % (9.3-17.3); White Blood Count 8.9 T/CUMM (4-12)
[2017-09-29 04:34] LABS: Albumin 2.9 G/DL (3.4-5.0); Bilirubin,Total 0.6 MG/DL (0.2-1.0); Calcium 8.2 MG/DL (8.5-10.1); Osmolality,Calculated 282.3 MOS/KG (273-304); Potassium 3.4 MMOL/L (3.5-5.1); Total Protein 6.6 G/DL (6.4-8.3)
[2017-09-29] MEDS: ONDANSETRON 4 MG/2 ML VIAL IV PRN (06:05)
[2017-09-29] MEDS: MORPHINE 4 MG/1 ML VIAL IV PRN ×4 (06:07→22:29)
[2017-09-29] MEDS: ALBUTEROL 2.5 MG/3 ML NEB RESP TX SCH ×2 (07:28→19:36)
[2017-09-29] MEDS: PROMETHAZINE 25 MG/1 ML VIAL IM PRN ×3 (10:01→22:27)
[2017-09-29] MEDS: NEBIVOLOL 5 MG TABLET PO SCH (10:02)
[2017-09-29] MEDS: POTASSIUM CHLORIDE 20 MEQ TABLET PO SCH (10:02)
[2017-09-29] MEDS: PANTOPRAZOLE 40 MG TABLET PO SCH (10:02)
[2017-09-29] MEDS: PRAMIPEXOLE 1 MG TABLET PO SCH ×2 (10:02→21:01)
[2017-09-29] MEDS: ERTAPENEM 1,000 MG in SODIUM CHLORIDE 0.9% 100 ML IV SCH (13:15)
[2017-09-29] MEDS: POTASSIUM CHLORIDE RIDER 10 MEQ in PREMIX 1 EACH IV SCH ×4 (14:59→19:30)
[2017-09-29] MEDS ORDERED: POTASSIUM CHLORIDE RIDER 10 MEQ in PREMIX 1 EACH IV SCH (20:00)
[2017-09-30] MEDS: DEXTROSE 5% NACL 0.9% 1,000 ML IV SCH ×5 (01:05→22:51)
[2017-09-30] MEDS: MORPHINE 4 MG/1 ML VIAL IV PRN ×5 (03:20→21:21)
[2017-09-30] MEDS: ALBUTEROL 2.5 MG/3 ML NEB RESP TX SCH ×2 (06:48→19:34)
[2017-09-30] MEDS: PROMETHAZINE 25 MG/1 ML VIAL IM PRN ×3 (07:31→21:12)
[2017-09-30] MEDS: ERTAPENEM 1,000 MG in SODIUM CHLORIDE 0.9% 100 ML IV SCH (09:38)
[2017-09-30] MEDS: NEBIVOLOL 5 MG TABLET PO SCH (09:43)
[2017-09-30] MEDS: POTASSIUM CHLORIDE 20 MEQ TABLET PO SCH (09:43)
[2017-09-30] MEDS: PRAMIPEXOLE 1 MG TABLET PO SCH ×2 (09:44→21:10)
[2017-09-30] MEDS: FUROSEMIDE 20 MG TABLET PO SCH (09:44)
[2017-09-30] MEDS: PANTOPRAZOLE 40 MG TABLET PO SCH (09:45)
[2017-09-30] MEDS: ONDANSETRON 4 MG/2 ML VIAL IV PRN (16:52)
[2017-10-01] MEDS: DEXTROSE 5% NACL 0.9% 1,000 ML IV SCH ×4 (01:47→23:57)
[2017-10-01] MEDS: PROMETHAZINE 25 MG/1 ML VIAL IM PRN ×3 (04:43→22:07)
[2017-10-01] MEDS: MORPHINE 4 MG/1 ML VIAL IV PRN ×4 (04:45→22:05)
[2017-10-01 06:14] LABS: Basophils # 0.1 10*3/uL (0.0-0.2); Basophils % 1.1 % (0.0-0.8); Eosinophils # 0.3 10*3/uL (0.0-0.87); Eosinophils % 7.1 % (0.00-10.9); Hematocrit 35.1 VOL% (35.7-47.0); Hemoglobin 11.5 GM/DL (12.0-16.0); Immature Granulocytes % 0.4 %; Immature Granulocytes Absolute 0.02 #; Lymphocytes # 1.2 10*3/uL (1.4-4.0); Lymphocytes % 25.5 % (21.3-54.2); Mean Corpuscular HGB Conc 32.8 GM/DL (32-36); Mean Corpuscular Hemoglobin 29 PG (27-34); Mean Corpuscular Volume 88.4 FL (87-102); Mean Platelet Volume 11.7 FL (9.6-12.0); Monocytes # 0.4 10*3/uL (0.11-0.8); Monocytes % 9.1 % (1.7-12.7); Neutrophils # 2.6 10*3/uL (1.4-7.4); Neutrophils % 56.8 % (38.7-73.9); Platelet Count 198 T/CUMM (130-400); Red Blood Count 3.97 MC/CUMM (3.8-5.5); Red Cell Distribution Width 14.5 % (9.3-17.3); White Blood Count 4.6 T/CUMM (4-12)
[2017-10-01 06:52] LABS: Albumin 2.6 G/DL (3.4-5.0); Bilirubin,Direct 0.2 MG/DL (0.0-0.20); Bilirubin,Indirect 1.4 MG/DL (0.0-1.0); Bilirubin,Total 1.6 MG/DL (0.2-1.0); Calcium 8.5 MG/DL (8.5-10.1); Potassium 3.5 MMOL/L (3.5-5.1); Total Protein 5.6 G/DL (6.4-8.3)
[2017-10-01] MEDS: ALBUTEROL 2.5 MG/3 ML NEB RESP TX SCH ×2 (07:13→19:25)
[2017-10-01] MEDS: fentaNYL 25 MCG/HR PATCH TRANSDERM SCH (08:51)
[2017-10-01] MEDS: POTASSIUM CHLORIDE 20 MEQ TABLET PO SCH (08:52)
[2017-10-01] MEDS: PANTOPRAZOLE 40 MG TABLET PO SCH (08:52)
[2017-10-01] MEDS: ERTAPENEM 1,000 MG in SODIUM CHLORIDE 0.9% 100 ML IV SCH (08:52)
[2017-10-01] MEDS: NEBIVOLOL 5 MG TABLET PO SCH (08:52)
[2017-10-01] MEDS: PRAMIPEXOLE 1 MG TABLET PO SCH ×2 (08:52→20:06)
[2017-10-01] MEDS ORDERED: HEPARIN LOCK FLUSH 500 UNIT/5 ML SYRINGE IV PRN (12:59)
[2017-10-01] MEDS: LEVOFLOXACIN INJ 750 MG in PREMIX 1 EACH IV SCH (13:55)
[2017-10-01] MEDS: ONDANSETRON 4 MG/2 ML VIAL IV PRN (18:15)
[2017-10-01] MEDS ORDERED: POLYETHYLENE GLYCOL POWDER 255 GM BOTTLE PO ONE (19:30)
[2017-10-01] MEDS: BISACODYL 5 MG TABLET PO SCH (20:06)
[2017-10-01] MEDS: HEPARIN LOCK FLUSH 500 UNIT/5 ML SYRINGE IV SCH (20:08)
[2017-10-02] MEDS: ONDANSETRON 4 MG/2 ML VIAL IV PRN (03:34)
[2017-10-02] MEDS: MORPHINE 4 MG/1 ML VIAL IV PRN ×3 (03:35→20:59)
[2017-10-02] MEDS: DEXTROSE 5% NACL 0.9% 1,000 ML IV SCH ×2 (05:56→12:58)
[2017-10-02 06:08] LABS: Basophils % 0.9 % (0.0-0.8); Eosinophils # 0.4 10*3/uL (0.0-0.87); Eosinophils % 8.1 % (0.00-10.9); Hematocrit 37.1 VOL% (35.7-47.0); Hemoglobin 11.8 GM/DL (12.0-16.0); Immature Granulocytes % 0.7 %; Immature Granulocytes Absolute 0.03 #; Lymphocytes # 1.1 10*3/uL (1.4-4.0); Mean Corpuscular HGB Conc 31.8 GM/DL (32-36); Mean Corpuscular Hemoglobin 29 PG (27-34); Mean Corpuscular Volume 90.9 FL (87-102); Mean Platelet Volume 11.5 FL (9.6-12.0); Monocytes # 0.5 10*3/uL (0.11-0.8); Monocytes % 10.3 % (1.7-12.7); Neutrophils # 2.5 10*3/uL (1.4-7.4); Platelet Count 217 T/CUMM (130-400); Red Blood Count 4.08 MC/CUMM (3.8-5.5); Red Cell Distribution Width 14.6 % (9.3-17.3); White Blood Count 4.6 T/CUMM (4-12)
[2017-10-02 06:50] LABS: Calcium 8.3 MG/DL (8.5-10.1); Potassium 3.5 MMOL/L (3.5-5.1)
[2017-10-02] MEDS: ALBUTEROL 2.5 MG/3 ML NEB RESP TX SCH ×2 (07:45→19:47)
[2017-10-02] MEDS: POTASSIUM CHLORIDE 20 MEQ TABLET PO SCH (08:52)
[2017-10-02] MEDS: PRAMIPEXOLE 1 MG TABLET PO SCH ×2 (08:52→20:55)
[2017-10-02] MEDS: NEBIVOLOL 5 MG TABLET PO SCH (08:52)
[2017-10-02] MEDS: ERTAPENEM 1,000 MG in SODIUM CHLORIDE 0.9% 100 ML IV SCH (08:53)
[2017-10-02] MEDS: FUROSEMIDE 20 MG TABLET PO SCH ×2 (08:53→08:57)
[2017-10-02] MEDS: PANTOPRAZOLE 40 MG TABLET PO SCH (08:53)
[2017-10-02] MEDS ORDERED: BISACODYL 5 MG TABLET PO ONE ×2 (09:00→16:00)
[2017-10-02] MEDS: HEPARIN LOCK FLUSH 500 UNIT/5 ML SYRINGE IV SCH ×2 (09:09→20:55)
[2017-10-02] MEDS: BISACODYL 5 MG TABLET PO SCH (09:09)
[2017-10-02] MEDS: LEVOFLOXACIN INJ 750 MG in PREMIX 1 EACH IV SCH (11:24)
[2017-10-02] MEDS ORDERED: POLYETHYLENE GLYCOL POWDER 255 GM BOTTLE PO ONE (15:00)
[2017-10-02] MEDS: PROMETHAZINE 25 MG/1 ML VIAL IM PRN (21:03)
[2017-10-03] MEDS: MORPHINE 4 MG/1 ML VIAL IV PRN ×2 (04:02→20:26)
[2017-10-03] MEDS: DEXTROSE 5% NACL 0.9% 1,000 ML IV SCH ×3 (05:16→19:10)
[2017-10-03 07:10] LABS: Basophils % 0.9 % (0.0-0.8); Eosinophils # 0.4 10*3/uL (0.0-0.87); Eosinophils % 8.3 % (0.00-10.9); Hematocrit 35.5 VOL% (35.7-47.0); Hemoglobin 11.2 GM/DL (12.0-16.0); Immature Granulocytes % 0.4 %; Immature Granulocytes Absolute 0.02 #; Lymphocytes # 1.2 10*3/uL (1.4-4.0); Lymphocytes % 26.8 % (21.3-54.2); Mean Corpuscular HGB Conc 31.5 GM/DL (32-36); Mean Corpuscular Hemoglobin 29 PG (27-34); Mean Corpuscular Volume 90.6 FL (87-102); Mean Platelet Volume 10.9 FL (9.6-12.0); Monocytes # 0.4 10*3/uL (0.11-0.8); Monocytes % 9.2 % (1.7-12.7); Neutrophils # 2.5 10*3/uL (1.4-7.4); Neutrophils % 54.4 % (38.7-73.9); Platelet Count 207 T/CUMM (130-400); Red Blood Count 3.92 MC/CUMM (3.8-5.5); Red Cell Distribution Width 14.6 % (9.3-17.3); White Blood Count 4.6 T/CUMM (4-12)
[2017-10-03] MEDS: ALBUTEROL 2.5 MG/3 ML NEB RESP TX SCH ×2 (07:12→19:18)
[2017-10-03 07:43] LABS: Calcium 8.2 MG/DL (8.5-10.1); Potassium 3.6 MMOL/L (3.5-5.1)
[2017-10-03] MEDS: BISACODYL 5 MG TABLET PO SCH (08:43)
[2017-10-03] MEDS: HEPARIN LOCK FLUSH 500 UNIT/5 ML SYRINGE IV SCH ×2 (08:46→20:32)
[2017-10-03] MEDS: POTASSIUM CHLORIDE 20 MEQ TABLET PO SCH (09:54)
[2017-10-03] MEDS: NEBIVOLOL 5 MG TABLET PO SCH (09:54)
[2017-10-03] MEDS: PANTOPRAZOLE 40 MG TABLET PO SCH (09:54)
[2017-10-03] MEDS: ERTAPENEM 1,000 MG in SODIUM CHLORIDE 0.9% 100 ML IV SCH (09:54)
[2017-10-03] MEDS: PRAMIPEXOLE 1 MG TABLET PO SCH ×2 (09:54→20:32)
[2017-10-03] MEDS: ENOXAPARIN 40 MG/0.4 ML SYRINGE SUBCUT SCH (09:55)
[2017-10-03] MEDS: LEVOFLOXACIN INJ 750 MG in PREMIX 1 EACH IV SCH (10:58)
[2017-10-03] MEDS ORDERED: LIDOCAINE 1%/EPI INJ 20 ML VIAL ONE (11:31)
[2017-10-03] MEDS ORDERED: TISSUE ADHESIVE 1 EACH APPLICATOR TOP ONE (11:31)
[2017-10-03] MEDS ORDERED: BUPIVACAINE 0.25% 50 ML VIAL ONE (11:32)
[2017-10-03] MEDS ORDERED: INDOCYANINE GREEN 25 MG VIAL IV ONE (15:13)
[2017-10-03] MEDS ORDERED: PROPOFOL 200 MG/20 ML VIAL IV ONE (16:54)
[2017-10-03] MEDS ORDERED: MIDAZOLAM 2 MG/2 ML VIAL ONE (16:54)
[2017-10-03] MEDS ORDERED: SEVOFLURANE 1 UNIT/15 MINUTE INH ONE (16:54)
[2017-10-03] MEDS ORDERED: fentaNYL 100 MCG/2 ML VIAL ONE (16:54)
[2017-10-03 16:55] LABS: Apearance,Urine CLEAR (Clear); Bacteria,Urine Occasional /HPF (Few); Bilirubin,Urine Negative (Negative); Blood, Urine Negative (Negative); Glucose,Urine (UA) Negative (Negative); Ketones,Urine Negative (Negative); Mucus,Urine Occasional /LPF (Occasional); Nitrite,Urine Negative (Negative); Protein,Urine Negative; RBC,Urine <1 /HPF (0-4); Squamous Epithelial Cell,Urine Occasional /HPF (0-10); Urine Color Yellow (Yellow); Urine Specific Gravity 1.012 (1.001-1.035); Urine Urobilinogen < 2.0 EU/DL (0.2-1.0); WBC,Urine 1 /HPF (0-6)
[2017-10-03] MEDS ORDERED: ONDANSETRON 4 MG/2 ML VIAL ONE ×2 (16:55→17:32)
[2017-10-03] MEDS ORDERED: GLYCOPYRROLATE 0.4 MG/2 ML VIAL ONE (16:55)
[2017-10-03] MEDS ORDERED: LACTATED RINGERS 1,000 ML IV ONE (16:55)
[2017-10-03] MEDS ORDERED: DEXAMETHASONE 10 MG/1 ML VIAL ONE (16:55)
[2017-10-03] MEDS ORDERED: ROCURONIUM 100 MG/10 ML VIAL IV ONE (16:55)
[2017-10-03] MEDS ORDERED: KETOROLAC 30 MG/1 ML VIAL ONE (16:55)
[2017-10-03] MEDS ORDERED: LACTATED RINGERS 1,000 ML IV SCH (17:30)
[2017-10-03] MEDS ORDERED: MORPHINE 10 MG/1 ML VIAL IV PRN (17:31)
[2017-10-03] MEDS ORDERED: ONDANSETRON 4 MG/2 ML VIAL IV PRN (17:31)
[2017-10-03] MEDS ORDERED: MORPHINE 10 MG/1 ML VIAL ONE (17:32)
[2017-10-04] MEDS: MORPHINE 4 MG/1 ML VIAL IV PRN ×4 (00:37→13:20)
[2017-10-04] MEDS: DEXTROSE 5% NACL 0.9% 1,000 ML IV SCH ×3 (03:10→23:51)
[2017-10-04] MEDS: PROMETHAZINE 25 MG/1 ML VIAL IM PRN ×2 (04:54→08:51)
[2017-10-04 05:51] LABS: Osmolality,Calculated 283.1 MOS/KG (273-304); Potassium 4.6 MMOL/L (3.5-5.1)
[2017-10-04 06:22] LABS: Basophils % 0.1 % (0.0-0.8); Eosinophils # 0.1 10*3/uL (0.0-0.87); Eosinophils % 0.7 % (0.00-10.9); Hematocrit 38.4 VOL% (35.7-47.0); Hemoglobin 12.8 GM/DL (12.0-16.0); Immature Granulocytes % 0.4 %; Immature Granulocytes Absolute 0.03 #; Lymphocytes # 0.4 10*3/uL (1.4-4.0); Mean Corpuscular HGB Conc 33.3 GM/DL (32-36); Mean Corpuscular Hemoglobin 29 PG (27-34); Mean Corpuscular Volume 86.7 FL (87-102); Monocytes # 0.3 10*3/uL (0.11-0.8); Monocytes % 4.7 % (1.7-12.7); NRBC # 0.14 10*3/uL; Neutrophils # 6.4 10*3/uL (1.4-7.4); Neutrophils % 88.1 % (38.7-73.9); Platelet Count 245 T/CUMM (130-400); Red Blood Count 4.43 MC/CUMM (3.8-5.5); Red Cell Distribution Width 14.2 % (9.3-17.3); White Blood Count 7.3 T/CUMM (4-12)
[2017-10-04 06:38] LABS: Giant Platelets Few; Hypochromasia Slight; Platelet Estimate Adequate
[2017-10-04] MEDS: ALBUTEROL 2.5 MG/3 ML NEB RESP TX SCH ×2 (08:14→18:57)
[2017-10-04 08:40] LABS: Alanine Aminotransferase 22 U/L (13-56); Albumin 2.7 G/DL (3.4-5.0); Alkaline Phosphatase 98 U/L (45-117); Aspartate Amino Transferase 17 U/L (0-37); Bilirubin,Indirect 0.2 MG/DL (0.0-1.0); Bilirubin,Total < 0.39 MG/DL (0.2-1.0); Total Protein 5.9 G/DL (6.4-8.3)
[2017-10-04] MEDS: fentaNYL 25 MCG/HR PATCH TRANSDERM SCH (08:51)
[2017-10-04] MEDS: ENOXAPARIN 40 MG/0.4 ML SYRINGE SUBCUT SCH (08:51)
[2017-10-04] MEDS: MAGNESIUM SULF RIDER 2 GM in PREMIX 1 EACH IV PRN (08:51)
[2017-10-04] MEDS: NEBIVOLOL 5 MG TABLET PO SCH (08:52)
[2017-10-04] MEDS: PRAMIPEXOLE 1 MG TABLET PO SCH ×2 (08:53→21:52)
[2017-10-04] MEDS: PANTOPRAZOLE 40 MG TABLET PO SCH (08:53)
[2017-10-04] MEDS: LOSARTAN 25 MG TABLET PO SCH (08:53)
[2017-10-04] MEDS: BISACODYL 5 MG TABLET PO SCH (08:53)
[2017-10-04] MEDS: POTASSIUM CHLORIDE 20 MEQ TABLET PO SCH (08:53)
[2017-10-04] MEDS: ERTAPENEM 1,000 MG in SODIUM CHLORIDE 0.9% 100 ML IV SCH (09:01)
[2017-10-04] MEDS: FUROSEMIDE 20 MG TABLET PO SCH (09:01)
[2017-10-04] MEDS: HEPARIN LOCK FLUSH 500 UNIT/5 ML SYRINGE IV SCH ×2 (09:02→21:54)
[2017-10-04] MEDS: LEVOFLOXACIN INJ 750 MG in PREMIX 1 EACH IV SCH (11:12)
[2017-10-04] MEDS: MEPERIDINE 50 MG/1 ML VIAL IV PRN ×2 (15:37→22:06)
[2017-10-04] MEDS: ONDANSETRON 4 MG/2 ML VIAL IV PRN (22:04)
[2017-10-05] MEDS: MEPERIDINE 50 MG/1 ML VIAL IV PRN ×5 (03:59→23:53)
[2017-10-05] MEDS: ALBUTEROL 2.5 MG/3 ML NEB RESP TX SCH ×2 (07:00→20:22)
[2017-10-05 09:01] LABS: Basophils # 0.1 10*3/uL (0.0-0.2); Basophils % 0.8 % (0.0-0.8); Eosinophils # 0.1 10*3/uL (0.0-0.87); Eosinophils % 1.7 % (0.00-10.9); Hematocrit 33.4 VOL% (35.7-47.0); Hemoglobin 10.7 GM/DL (12.0-16.0); Immature Granulocytes % 0.8 %; Immature Granulocytes Absolute 0.05 #; Lymphocytes # 1.4 10*3/uL (1.4-4.0); Lymphocytes % 21.6 % (21.3-54.2); Mean Corpuscular Hemoglobin 29 PG (27-34); Mean Corpuscular Volume 89.5 FL (87-102); Mean Platelet Volume 11.5 FL (9.6-12.0); Monocytes # 0.6 10*3/uL (0.11-0.8); Monocytes % 9.5 % (1.7-12.7); Neutrophils # 4.3 10*3/uL (1.4-7.4); Neutrophils % 65.6 % (38.7-73.9); Platelet Count 211 T/CUMM (130-400); Red Blood Count 3.73 MC/CUMM (3.8-5.5); Red Cell Distribution Width 15.3 % (9.3-17.3); White Blood Count 6.6 T/CUMM (4-12)
[2017-10-05] MEDS: ONDANSETRON 4 MG/2 ML VIAL IV PRN ×2 (09:21→23:51)
[2017-10-05] MEDS: HEPARIN LOCK FLUSH 500 UNIT/5 ML SYRINGE IV SCH ×2 (09:25→20:27)
[2017-10-05] MEDS: ENOXAPARIN 40 MG/0.4 ML SYRINGE SUBCUT SCH (09:25)
[2017-10-05] MEDS: LEVOFLOXACIN INJ 750 MG in PREMIX 1 EACH IV SCH (09:28)
[2017-10-05] MEDS: PRAMIPEXOLE 1 MG TABLET PO SCH ×2 (09:29→20:26)
[2017-10-05] MEDS: LOSARTAN 25 MG TABLET PO SCH (09:29)
[2017-10-05] MEDS: PANTOPRAZOLE 40 MG TABLET PO SCH (09:30)
[2017-10-05] MEDS: NEBIVOLOL 5 MG TABLET PO SCH (09:30)
[2017-10-05] MEDS: POTASSIUM CHLORIDE 20 MEQ TABLET PO SCH (09:30)
[2017-10-05] MEDS: BISACODYL 5 MG TABLET PO SCH (09:30)
[2017-10-05 09:52] LABS: Calcium 8.1 MG/DL (8.5-10.1); Osmolality,Calculated 286.8 MOS/KG (273-304); Potassium 3.4 MMOL/L (3.5-5.1)
[2017-10-05] MEDS: MAGNESIUM SULF RIDER 2 GM in PREMIX 1 EACH IV PRN (12:37)
[2017-10-05] MEDS: FLUCONAZOLE 100 MG TABLET PO SCH (16:42)
[2017-10-05] MEDS: DEXTROSE 5% NACL 0.9% 1,000 ML IV SCH (20:26)
[2017-10-06] MEDS: ONDANSETRON 4 MG/2 ML VIAL IV PRN ×3 (05:07→21:00)
[2017-10-06] MEDS: MEPERIDINE 50 MG/1 ML VIAL IV PRN ×5 (05:38→21:01)
[2017-10-06] MEDS: DEXTROSE 5% NACL 0.9% 1,000 ML IV SCH (06:06)
[2017-10-06] MEDS: ALBUTEROL 2.5 MG/3 ML NEB RESP TX SCH ×2 (06:51→19:32)
[2017-10-06] MEDS: ENOXAPARIN 40 MG/0.4 ML SYRINGE SUBCUT SCH (08:55)
[2017-10-06] MEDS: POTASSIUM CHLORIDE 20 MEQ TABLET PO SCH (08:55)
[2017-10-06] MEDS: HEPARIN LOCK FLUSH 500 UNIT/5 ML SYRINGE IV SCH ×2 (08:55→21:04)
[2017-10-06] MEDS: NEBIVOLOL 5 MG TABLET PO SCH (08:55)
[2017-10-06] MEDS: PANTOPRAZOLE 40 MG TABLET PO SCH (08:56)
[2017-10-06] MEDS: BISACODYL 5 MG TABLET PO SCH (08:56)
[2017-10-06] MEDS: FUROSEMIDE 20 MG TABLET PO SCH (08:56)
[2017-10-06] MEDS: LOSARTAN 25 MG TABLET PO SCH (08:56)
[2017-10-06] MEDS: PROMETHAZINE 25 MG/1 ML VIAL IM PRN ×2 (08:56→17:26)
[2017-10-06] MEDS: FLUCONAZOLE 100 MG TABLET PO SCH (08:56)
[2017-10-06] MEDS: LEVOFLOXACIN INJ 750 MG in PREMIX 1 EACH IV SCH (09:00)
[2017-10-06] MEDS: PRAMIPEXOLE 1 MG TABLET PO SCH ×2 (09:00→21:04)
[2017-10-07] MEDS: MEPERIDINE 50 MG/1 ML VIAL IV PRN ×5 (00:06→20:57)
[2017-10-07] MEDS: DEXTROSE 5% NACL 0.9% 1,000 ML IV SCH ×2 (05:37→09:34)
[2017-10-07] MEDS: ALBUTEROL 2.5 MG/3 ML NEB RESP TX SCH ×2 (07:35→19:05)
[2017-10-07] MEDS: LOSARTAN 25 MG TABLET PO SCH (09:35)
[2017-10-07] MEDS: FLUCONAZOLE 100 MG TABLET PO SCH (09:35)
[2017-10-07] MEDS: PANTOPRAZOLE 40 MG TABLET PO SCH (09:35)
[2017-10-07] MEDS: BISACODYL 5 MG TABLET PO SCH (09:35)
[2017-10-07] MEDS: POTASSIUM CHLORIDE 20 MEQ TABLET PO SCH (09:35)
[2017-10-07] MEDS: NEBIVOLOL 5 MG TABLET PO SCH (09:35)
[2017-10-07] MEDS: PRAMIPEXOLE 1 MG TABLET PO SCH ×2 (09:35→20:55)
[2017-10-07] MEDS: ENOXAPARIN 40 MG/0.4 ML SYRINGE SUBCUT SCH (09:37)
[2017-10-07] MEDS: PROMETHAZINE 25 MG/1 ML VIAL IM PRN ×2 (09:39→20:56)
[2017-10-07] MEDS: fentaNYL 25 MCG/HR PATCH TRANSDERM SCH (09:39)
[2017-10-07] MEDS: LEVOFLOXACIN INJ 750 MG in PREMIX 1 EACH IV SCH (09:39)
[2017-10-07] MEDS: HEPARIN LOCK FLUSH 500 UNIT/5 ML SYRINGE IV SCH ×2 (09:40→20:53)
[2017-10-08] MEDS: MEPERIDINE 50 MG/1 ML VIAL IV PRN ×4 (00:11→20:42)
[2017-10-08 05:19] LABS: Basophils # 0.1 10*3/uL (0.0-0.2); Basophils % 0.7 % (0.0-0.8); Eosinophils # 0.3 10*3/uL (0.0-0.87); Eosinophils % 3.6 % (0.00-10.9); Hematocrit 31.9 VOL% (35.7-47.0); Hemoglobin 9.8 GM/DL (12.0-16.0); Immature Granulocytes % 0.7 %; Immature Granulocytes Absolute 0.05 #; Lymphocytes # 1.4 10*3/uL (1.4-4.0); Lymphocytes % 19.5 % (21.3-54.2); Mean Corpuscular HGB Conc 30.7 GM/DL (32-36); Mean Corpuscular Hemoglobin 28 PG (27-34); Mean Corpuscular Volume 91.9 FL (87-102); Mean Platelet Volume 11.7 FL (9.6-12.0); Monocytes # 0.6 10*3/uL (0.11-0.8); Monocytes % 8.6 % (1.7-12.7); Neutrophils # 4.8 10*3/uL (1.4-7.4); Neutrophils % 66.9 % (38.7-73.9); Platelet Count 194 T/CUMM (130-400); Red Blood Count 3.47 MC/CUMM (3.8-5.5); Red Cell Distribution Width 15.4 % (9.3-17.3); White Blood Count 7.1 T/CUMM (4-12)
[2017-10-08 05:37] LABS: Calcium 8.2 MG/DL (8.5-10.1); Osmolality,Calculated 279.1 MOS/KG (273-304); Potassium 3.9 MMOL/L (3.5-5.1)
[2017-10-08] MEDS: ALBUTEROL 2.5 MG/3 ML NEB RESP TX SCH ×2 (07:23→20:27)
[2017-10-08] MEDS: NEBIVOLOL 5 MG TABLET PO SCH (09:02)
[2017-10-08] MEDS: PRAMIPEXOLE 1 MG TABLET PO SCH ×2 (09:02→20:41)
[2017-10-08] MEDS: PANTOPRAZOLE 40 MG TABLET PO SCH (09:04)
[2017-10-08] MEDS: BISACODYL 5 MG TABLET PO SCH (09:04)
[2017-10-08] MEDS: FUROSEMIDE 20 MG TABLET PO SCH (09:04)
[2017-10-08] MEDS: POTASSIUM CHLORIDE 20 MEQ TABLET PO SCH (09:04)
[2017-10-08] MEDS: ONDANSETRON 4 MG/2 ML VIAL IV PRN ×3 (09:05→20:42)
[2017-10-08] MEDS: LOSARTAN 25 MG TABLET PO SCH (09:05)
[2017-10-08] MEDS: LEVOFLOXACIN INJ 750 MG in PREMIX 1 EACH IV SCH (09:06)
[2017-10-08] MEDS: HEPARIN LOCK FLUSH 500 UNIT/5 ML SYRINGE IV SCH ×2 (09:06→20:42)
[2017-10-08] MEDS: ENOXAPARIN 40 MG/0.4 ML SYRINGE SUBCUT SCH (09:06)
[2017-10-09] MEDS: MEPERIDINE 50 MG/1 ML VIAL IV PRN ×2 (04:47→09:21)
[2017-10-09] MEDS: ONDANSETRON 4 MG/2 ML VIAL IV PRN ×2 (04:47→09:20)
[2017-10-09] MEDS: ALBUTEROL 2.5 MG/3 ML NEB RESP TX SCH (07:08)
[2017-10-09 07:20] LABS: Basophils % 0.5 % (0.0-0.8); Eosinophils # 0.2 10*3/uL (0.0-0.87); Eosinophils % 2.3 % (0.00-10.9); Hematocrit 30.5 VOL% (35.7-47.0); Hemoglobin 9.6 GM/DL (12.0-16.0); Immature Granulocytes % 0.7 %; Immature Granulocytes Absolute 0.06 #; Lymphocytes # 1.2 10*3/uL (1.4-4.0); Lymphocytes % 13.6 % (21.3-54.2); Mean Corpuscular HGB Conc 31.5 GM/DL (32-36); Mean Corpuscular Hemoglobin 28 PG (27-34); Mean Corpuscular Volume 90.2 FL (87-102); Mean Platelet Volume 12.5 FL (9.6-12.0); Monocytes # 0.8 10*3/uL (0.11-0.8); Monocytes % 9.5 % (1.7-12.7); Neutrophils # 6.4 10*3/uL (1.4-7.4); Neutrophils % 73.4 % (38.7-73.9); Platelet Count 193 T/CUMM (130-400); Red Blood Count 3.38 MC/CUMM (3.8-5.5); Red Cell Distribution Width 15.3 % (9.3-17.3); White Blood Count 8.7 T/CUMM (4-12)
[2017-10-09] MEDS: NEBIVOLOL 5 MG TABLET PO SCH (09:22)
[2017-10-09] MEDS: POTASSIUM CHLORIDE 20 MEQ TABLET PO SCH (09:22)
[2017-10-09] MEDS: PRAMIPEXOLE 1 MG TABLET PO SCH (09:22)
[2017-10-09] MEDS: PANTOPRAZOLE 40 MG TABLET PO SCH (09:22)
[2017-10-09] MEDS: BISACODYL 5 MG TABLET PO SCH (09:22)
[2017-10-09] MEDS: LOSARTAN 25 MG TABLET PO SCH (09:23)
[2017-10-09] MEDS: LEVOFLOXACIN INJ 750 MG in PREMIX 1 EACH IV SCH (09:24)
[2017-10-09] MEDS: ENOXAPARIN 40 MG/0.4 ML SYRINGE SUBCUT SCH (09:25)
[2017-10-09] MEDS: HEPARIN LOCK FLUSH 500 UNIT/5 ML SYRINGE IV SCH (09:25)
[2017-10-09 11:59] VITALS: BP 128/55
== END 2017-10-09 12:53 | DRG 330 ==
LOC: N.ED 12:31 → N.EDINP 16:18 → N.2E 17:39
PROVIDERS: ADMIT Family Medicine; ATTEND Family Medicine

== ENCOUNTER 2018-03-05 05:56 | Inpatient (IN) ==
[2018-03-05] MEDS ORDERED: VANCOMYCIN INJ 1,000 MG in SODIUM CHLORIDE 0.9% 250 ML IV ONE ×2 (06:00→21:30)
[2018-03-05] MEDS ORDERED: ceFAZolin 2,000 MG in PREMIX 1 EACH IV ONE (06:00)
[2018-03-05] MEDS ORDERED: BACITRACIN OINT 0.9 GM PACK TOP ONE (07:00)
[2018-03-05] MEDS ORDERED: FAMOTIDINE 20 MG TABLET PO ONE (07:26)
[2018-03-05] MEDS ORDERED: ONDANSETRON 4 MG/2 ML VIAL IV ONE (07:29)
[2018-03-05] MEDS ORDERED: LACTATED RINGERS 1,000 ML IV SCH (07:30)
[2018-03-05] MEDS ORDERED: FAMOTIDINE 20 MG TABLET ONE (07:32)
[2018-03-05] MEDS ORDERED: CLINDAMYCIN INJ 50 ML IV ONE (07:33)
[2018-03-05] MEDS ORDERED: TRANEXAMIC ACID 1,000 MG/10 ML VIAL ONE (09:08)
[2018-03-05] MEDS ORDERED: VANCOMYCIN 1,000 MG VIAL ONE (09:08)
[2018-03-05] MEDS ORDERED: diphenhydrAMINE CAP 25 MG CAPSULE PO PRN (10:40)
[2018-03-05] MEDS ORDERED: MORPHINE 4 MG/1 ML VIAL IV PRN (10:40)
[2018-03-05] MEDS ORDERED: MAGNESIUM HYDROXIDE SUSP 30 ML UDCUP PO PRN (10:40)
[2018-03-05] MEDS ORDERED: ROPIVACAINE 0.5% 30 ML VIAL ONE (10:52)
[2018-03-05] MEDS ORDERED: LIDOCAINE 2% 20 ML VIAL ONE (10:52)
[2018-03-05] MEDS ORDERED: SCOPOLAMINE 1.5 MG PATCH TRANSDERM ONE ×2 (10:59→11:57)
[2018-03-05 11:08] LABS: Apearance,Urine CLEAR (Clear); Bacteria,Urine Occasional /HPF (Few); Bilirubin,Urine Negative (Negative); Blood, Urine Small mg/dL (Negative); Glucose,Urine (UA) Negative (Negative); Ketones,Urine Negative (Negative); Nitrite,Urine Negative (Negative); Protein,Urine Negative; RBC,Urine 2 /HPF (0-4); Urine Color Straw (Yellow); Urine Specific Gravity 1.009 (1.001-1.035); Urine Urobilinogen < 2.0 EU/DL (0.2-1.0)
[2018-03-05] MEDS ORDERED: ONDANSETRON 4 MG/2 ML VIAL ONE (11:18)
[2018-03-05] MEDS ORDERED: SEVOFLURANE 1 UNIT/15 MINUTE INH ONE (11:18)
[2018-03-05] MEDS ORDERED: GLYCOPYRROLATE 0.4 MG/2 ML VIAL ONE (11:18)
[2018-03-05] MEDS ORDERED: MIDAZOLAM 2 MG/2 ML VIAL ONE (11:18)
[2018-03-05] MEDS ORDERED: fentaNYL 100 MCG/2 ML VIAL ONE ×2 (11:18→15:25)
[2018-03-05] MEDS ORDERED: PROPOFOL 200 MG/20 ML VIAL IV ONE (11:18)
[2018-03-05] MEDS ORDERED: SUCCINYLCHOLINE 200 MG/10 ML VIAL ONE (11:19)
[2018-03-05] MEDS ORDERED: ACETAMINOPHEN 1,000 MG/100 ML VIAL IV ONE (11:19)
[2018-03-05] MEDS ORDERED: NEOSTIGMINE 10 MG/10 ML VIAL ONE (11:19)
[2018-03-05] MEDS ORDERED: ePHEDrine 50 MG/ML AMP ONE (11:19)
[2018-03-05] MEDS ORDERED: ROCURONIUM 100 MG/10 ML VIAL IV ONE (11:19)
[2018-03-05] MEDS ORDERED: MEPERIDINE 25 MG/1 ML VIAL ONE ×2 (11:23→11:40)
[2018-03-05] MEDS: MEPERIDINE 25 MG/1 ML VIAL IV PRN ×2 (11:30→11:40)
[2018-03-05] MEDS ORDERED: MORPHINE 10 MG/1 ML VIAL IV PRN (11:56)
[2018-03-05] MEDS ORDERED: KETOROLAC 30 MG/1 ML VIAL ONE (12:13)
[2018-03-05] MEDS ORDERED: KETOROLAC 30 MG/1 ML VIAL IV ONE (12:16)
[2018-03-05] MEDS ORDERED: CLOTRIMAZOLE/BETAMETHASONE CREAM 15 GM TUBE TOP PRN (12:25)
[2018-03-05] MEDS ORDERED: ONDANSETRON 4 MG TABLET PO PRN (12:25)
[2018-03-05] MEDS ORDERED: PROMETHAZINE 25 MG/1 ML VIAL ONE (12:48)
[2018-03-05] MEDS ORDERED: PROMETHAZINE INJ 25 MG in SODIUM CHLORIDE 0.9% 50 ML IV ONE (12:55)
[2018-03-05] MEDS: fentaNYL 100 MCG/2 ML VIAL IV SCH ×4 (15:30→15:45)
[2018-03-05] MEDS: KETOROLAC 30 MG/1 ML VIAL IV SCH ×3 (17:05→22:47)
[2018-03-05] MEDS: LACTATED RINGERS 1,000 ML IV SCH ×2 (18:56→19:44)
[2018-03-05] MEDS: GABAPENTIN 600 MG TABLET PO SCH ×3 (18:58→21:23)
[2018-03-05] MEDS: ACETAMINOPHEN 500 MG TABLET PO SCH ×2 (19:02→21:24)
[2018-03-05] MEDS: ceFAZolin 2,000 MG in PREMIX 1 EACH IV SCH ×2 (19:04→22:44)
[2018-03-05] MEDS: ONDANSETRON 4 MG/2 ML VIAL IV PRN (19:48)
[2018-03-05] MEDS: MORPHINE 4 MG/1 ML VIAL IV PRN ×2 (19:49→22:48)
[2018-03-05] MEDS: ALBUTEROL/IPRATROPIUM 3 ML NEB RESP TX SCH (20:05)
[2018-03-05] MEDS ORDERED: ALBUTEROL 2.5 MG/3 ML NEB RESP TX SCH (21:00)
[2018-03-05] MEDS: tiZANidine 4 MG TABLET PO SCH (21:23)
[2018-03-05] MEDS: PRAMIPEXOLE 1 MG TABLET PO SCH (21:23)
[2018-03-05] MEDS: DOCUSATE SODIUM 100 MG CAPSULE PO SCH (21:24)
[2018-03-06] MEDS: MORPHINE 4 MG/1 ML VIAL IV PRN ×6 (02:33→21:22)
[2018-03-06] MEDS: ONDANSETRON 4 MG/2 ML VIAL IV PRN ×4 (02:33→18:10)
[2018-03-06] MEDS: ACETAMINOPHEN 500 MG TABLET PO SCH ×2 (02:35→09:31)
[2018-03-06] MEDS: FONDAPARINUX 2.5 MG/0.5 ML SYRINGE SUBCUT SCH (05:55)
[2018-03-06] MEDS: KETOROLAC 30 MG/1 ML VIAL IV SCH (05:57)
[2018-03-06] MEDS: LACTATED RINGERS 1,000 ML IV SCH (06:07)
[2018-03-06 06:18] LABS: Basophils # 0.1 10*3/uL (0.0-0.2); Basophils % 0.4 % (0.0-0.8); Eosinophils # 0.1 10*3/uL (0.0-0.87); Eosinophils % 1.2 % (0.00-10.9); Hematocrit 35.5 VOL% (35.7-47.0); Hemoglobin 11.1 GM/DL (12.0-16.0); Immature Granulocytes % 1.9 %; Immature Granulocytes Absolute 0.22 #; Lymphocytes # 1.2 10*3/uL (1.4-4.0); Lymphocytes % 10.5 % (21.3-54.2); Mean Corpuscular HGB Conc 31.3 GM/DL (32-36); Mean Corpuscular Hemoglobin 29 PG (27-34); Mean Platelet Volume 11.8 FL (9.6-12.0); Monocytes % 8.5 % (1.7-12.7); Neutrophils # 8.8 10*3/uL (1.4-7.4); Neutrophils % 77.5 % (38.7-73.9); Platelet Count 171 T/CUMM (130-400); Red Blood Count 3.86 MC/CUMM (3.8-5.5); Red Cell Distribution Width 15.6 % (9.3-17.3); White Blood Count 11.3 T/CUMM (4-12)
[2018-03-06] MEDS ORDERED: ceFAZolin 2,000 MG in PREMIX 1 EACH IV SCH (06:30)
[2018-03-06 07:00] LABS: Calcium 7.7 MG/DL (8.5-10.1); Osmolality,Calculated 290.7 MOS/KG (273-304); Potassium 4.3 MMOL/L (3.5-5.1)
[2018-03-06] MEDS: ALBUTEROL/IPRATROPIUM 3 ML NEB RESP TX SCH ×4 (07:36→19:28)
[2018-03-06] MEDS: POTASSIUM CHLORIDE 20 MEQ TABLET PO SCH (09:31)
[2018-03-06] MEDS: PRAMIPEXOLE 1 MG TABLET PO SCH ×2 (09:31→21:23)
[2018-03-06] MEDS: PANTOPRAZOLE 40 MG TABLET PO SCH (09:31)
[2018-03-06] MEDS: GABAPENTIN 600 MG TABLET PO SCH ×4 (09:31→21:23)
[2018-03-06] MEDS: DOCUSATE SODIUM 100 MG CAPSULE PO SCH ×2 (09:31→21:22)
[2018-03-06] MEDS: tiZANidine 4 MG TABLET PO SCH ×2 (09:31→21:23)
[2018-03-06] MEDS ORDERED: ACETAMINOPHEN 325 MG TABLET PO PRN (10:41)
[2018-03-06] MEDS ORDERED: ALBUTEROL 2.5 MG/3 ML NEB RESP TX PRN (14:00)
[2018-03-06] MEDS ORDERED: PROMETHAZINE INJ 12.5 MG in SODIUM CHLORIDE 0.9% 50 ML IV PRN (16:03)
[2018-03-06] MEDS ORDERED: SODIUM CHLORIDE 0.9% 1,000 ML IV SCH (16:30)
[2018-03-07] MEDS: MORPHINE 4 MG/1 ML VIAL IV PRN ×4 (00:37→16:44)
[2018-03-07] MEDS: ONDANSETRON 4 MG/2 ML VIAL IV PRN ×2 (00:37→08:13)
[2018-03-07 03:22] LABS: Basophils % 0.3 % (0.0-0.8); Eosinophils # 0.1 10*3/uL (0.0-0.87); Eosinophils % 1.1 % (0.00-10.9); Hematocrit 33.4 VOL% (35.7-47.0); Hemoglobin 10.3 GM/DL (12.0-16.0); Immature Granulocytes Absolute 0.11 #; Lymphocytes # 1.2 10*3/uL (1.4-4.0); Mean Corpuscular HGB Conc 30.8 GM/DL (32-36); Mean Corpuscular Hemoglobin 29 PG (27-34); Mean Corpuscular Volume 92.5 FL (87-102); Mean Platelet Volume 11.1 FL (9.6-12.0); Monocytes # 1.3 10*3/uL (0.11-0.8); Monocytes % 11.7 % (1.7-12.7); Neutrophils # 8.2 10*3/uL (1.4-7.4); Neutrophils % 74.9 % (38.7-73.9); Platelet Count 166 T/CUMM (130-400); Red Blood Count 3.61 MC/CUMM (3.8-5.5); Red Cell Distribution Width 15.9 % (9.3-17.3)
[2018-03-07 03:47] LABS: Calcium 7.9 MG/DL (8.5-10.1); Osmolality,Calculated 281.4 MOS/KG (273-304)
[2018-03-07] MEDS: FONDAPARINUX 2.5 MG/0.5 ML SYRINGE SUBCUT SCH (03:51)
[2018-03-07] MEDS: ALBUTEROL/IPRATROPIUM 3 ML NEB RESP TX SCH ×4 (07:40→19:37)
[2018-03-07] MEDS: POTASSIUM CHLORIDE 20 MEQ TABLET PO SCH (08:17)
[2018-03-07] MEDS: PANTOPRAZOLE 40 MG TABLET PO SCH (08:17)
[2018-03-07] MEDS: tiZANidine 4 MG TABLET PO SCH ×2 (08:17→20:46)
[2018-03-07] MEDS: GABAPENTIN 600 MG TABLET PO SCH ×4 (08:17→20:46)
[2018-03-07] MEDS: PRAMIPEXOLE 1 MG TABLET PO SCH ×2 (08:17→20:47)
[2018-03-07] MEDS: DOCUSATE SODIUM 100 MG CAPSULE PO SCH ×2 (08:19→20:47)
[2018-03-07] MEDS ORDERED: FUROSEMIDE 20 MG TABLET PO SCH (09:00)
[2018-03-07] MEDS ORDERED: NEBIVOLOL 5 MG TABLET PO PRN (09:00)
[2018-03-07] MEDS ORDERED: SODIUM CHLORIDE 0.9% 1,000 ML IV ONE (09:58)
[2018-03-07] MEDS: SODIUM CHLORIDE 0.9% 1,000 ML IV SCH ×2 (10:55→19:02)
[2018-03-07 14:49] LABS: Apearance,Urine Slightly Hazy (Clear); Bacteria,Urine Occasional /HPF (Few); Bilirubin,Urine Negative (Negative); Blood, Urine Small mg/dL (Negative); Glucose,Urine (UA) Negative (Negative); Hyaline Casts,Urine 12 /LPF (0-3); Ketones,Urine Negative (Negative); Mucus,Urine Few /LPF (Occasional); Nitrite,Urine Negative (Negative); Protein,Urine 30 MG/DL; RBC,Urine 15 /HPF (0-4); Squamous Epithelial Cell,Urine Occasional /HPF (0-10); Urine Color Amber (Yellow); Urine Specific Gravity 1.014 (1.001-1.035); WBC,Urine 15 /HPF (0-6)
[2018-03-08] MEDS: SODIUM CHLORIDE 0.9% 1,000 ML IV SCH (03:27)
[2018-03-08 04:10] LABS: Basophils % 0.3 % (0.0-0.8); Eosinophils # 0.2 10*3/uL (0.0-0.87); Hematocrit 29.8 VOL% (35.7-47.0); Hemoglobin 9.3 GM/DL (12.0-16.0); Immature Granulocytes % 0.9 %; Immature Granulocytes Absolute 0.09 #; Lymphocytes # 1.2 10*3/uL (1.4-4.0); Lymphocytes % 12.4 % (21.3-54.2); Mean Corpuscular HGB Conc 31.2 GM/DL (32-36); Mean Corpuscular Hemoglobin 28 PG (27-34); Mean Corpuscular Volume 89.8 FL (87-102); Mean Platelet Volume 11.5 FL (9.6-12.0); Monocytes # 1.1 10*3/uL (0.11-0.8); Monocytes % 10.5 % (1.7-12.7); Neutrophils # 7.4 10*3/uL (1.4-7.4); Neutrophils % 73.9 % (38.7-73.9); Platelet Count 144 T/CUMM (130-400); Red Blood Count 3.32 MC/CUMM (3.8-5.5); Red Cell Distribution Width 15.7 % (9.3-17.3)
[2018-03-08] MEDS: MORPHINE 4 MG/1 ML VIAL IV PRN ×2 (05:33→11:34)
[2018-03-08] MEDS: ONDANSETRON 4 MG/2 ML VIAL IV PRN (05:34)
[2018-03-08] MEDS ORDERED: oxyCODONE/ACETAMINOPHEN 5-325 MG TABLET PO PRN ×2 (07:31)
[2018-03-08] MEDS: ALBUTEROL/IPRATROPIUM 3 ML NEB RESP TX SCH ×2 (07:55→10:33)
[2018-03-08] MEDS ORDERED: fentaNYL 25 MCG/HR PATCH TRANSDERM SCH (09:00)
[2018-03-08] MEDS: tiZANidine 4 MG TABLET PO SCH (11:22)
[2018-03-08] MEDS: POTASSIUM CHLORIDE 20 MEQ TABLET PO SCH (11:22)
[2018-03-08] MEDS: GABAPENTIN 600 MG TABLET PO SCH ×2 (11:23→15:14)
[2018-03-08] MEDS: PANTOPRAZOLE 40 MG TABLET PO SCH (11:23)
[2018-03-08] MEDS: DOCUSATE SODIUM 100 MG CAPSULE PO SCH (11:23)
[2018-03-08] MEDS: FONDAPARINUX 2.5 MG/0.5 ML SYRINGE SUBCUT SCH (11:25)
[2018-03-08] MEDS: PRAMIPEXOLE 1 MG TABLET PO SCH (11:30)
[2018-03-08 11:47] VITALS: BP 122/79
[2018-03-11] MEDS ORDERED: ERGOCALCIFEROL 50,000 UNIT CAPSULE PO SCH (12:25)
== END 2018-03-08 13:35 | DRG 470 ==
LOC: N.SDSINP 05:56 → N.3E 16:33
PROVIDERS: ADMIT Orthopaedic Surgery; ATTEND Orthopaedic Surgery

== ENCOUNTER 2018-04-18 08:29 | Inpatient (IN) ==
[2018-04-18] MEDS ORDERED: SODIUM CHLORIDE 0.9% 1,000 ML IV STA (09:29)
[2018-04-18 10:12] LABS: Basophils # 0.1 10*3/uL (0.0-0.2); Basophils % 0.6 % (0.0-0.8); Eosinophils # 0.1 10*3/uL (0.0-0.87); Eosinophils % 1.4 % (0.00-10.9); Hematocrit 39.1 VOL% (35.7-47.0); Hemoglobin 12.4 GM/DL (12.0-16.0); Immature Granulocytes % 0.3 %; Immature Granulocytes Absolute 0.03 #; Lymphocytes # 1.7 10*3/uL (1.4-4.0); Lymphocytes % 18.8 % (21.3-54.2); Mean Corpuscular HGB Conc 31.7 GM/DL (32-36); Mean Corpuscular Hemoglobin 28 PG (27-34); Mean Corpuscular Volume 86.7 FL (87-102); Mean Platelet Volume 12.2 FL (9.6-12.0); Monocytes # 0.7 10*3/uL (0.11-0.8); Monocytes % 7.6 % (1.7-12.7); Neutrophils # 6.4 10*3/uL (1.4-7.4); Neutrophils % 71.3 % (38.7-73.9); Platelet Count 200 T/CUMM (130-400); Red Blood Count 4.51 MC/CUMM (3.8-5.5); Red Cell Distribution Width 17.2 % (9.3-17.3)
[2018-04-18] MEDS ORDERED: ONDANSETRON 4 MG/2 ML VIAL IV STA ×2 (10:16→12:00)
[2018-04-18 10:17] LABS: INR 0.9; PT Patient Result 9.8 SECS
[2018-04-18] MEDS ORDERED: ONDANSETRON 4 MG/2 ML VIAL ONE (10:17)
[2018-04-18 10:19] LABS: Apearance,Urine CLEAR (Clear); Bilirubin,Urine Negative (Negative); Blood, Urine Negative (Negative); Glucose,Urine (UA) Negative (Negative); Ketones,Urine Negative (Negative); Mucus,Urine Occasional /LPF (Occasional); Nitrite,Urine Negative (Negative); Protein,Urine Negative; RBC,Urine 1 /HPF (0-4); Squamous Epithelial Cell,Urine Occasional /HPF (0-10); Urine Color Amber (Yellow); Urine Specific Gravity 1.019 (1.001-1.035); WBC,Urine 1 /HPF (0-6)
[2018-04-18 10:35] LABS: Albumin 3.5 G/DL (3.4-5.0); Calcium 8.5 MG/DL (8.5-10.1); Osmolality,Calculated 280.3 MOS/KG (273-304); Potassium 3.9 MMOL/L (3.5-5.1); Total Protein 6.7 G/DL (6.4-8.3)
[2018-04-18 10:44] LABS: Barbiturates Screen,Urine Negative (Negative); Benzodiazepines Screen,Urine Positive (Negative); Cannabinoid Screen,Urine Negative (Negative); Opiate Screen,Urine Positive (Negative); Phencyclidine Screen,Urine Negative (Negative)
[2018-04-18] MEDS ORDERED: HYDROmorphone 2 MG/1 ML VIAL IV STA (12:00)
[2018-04-18] MEDS ORDERED: ACETAMINOPHEN 325 MG TABLET PO PRN (12:53)
[2018-04-18] MEDS: SODIUM CHLORIDE 0.9% 1,000 ML IV SCH ×2 (14:12→21:45)
[2018-04-18] MEDS: ONDANSETRON 4 MG/2 ML VIAL IV PRN (17:54)
[2018-04-18] MEDS: ALBUTEROL/IPRATROPIUM 3 ML NEB RESP TX SCH (19:39)
[2018-04-18] MEDS ORDERED: ALBUTEROL 2.5 MG/3 ML NEB RESP TX PRN (21:00)
[2018-04-18] MEDS: DOCUSATE SODIUM 100 MG CAPSULE PO SCH (21:41)
[2018-04-18] MEDS: tiZANidine 4 MG TABLET PO SCH (21:41)
[2018-04-19] MEDS: ONDANSETRON 4 MG/2 ML VIAL IV PRN ×2 (02:36→07:50)
[2018-04-19] MEDS: SODIUM CHLORIDE 0.9% 1,000 ML IV SCH ×2 (05:45→18:19)
[2018-04-19] MEDS: ALBUTEROL/IPRATROPIUM 3 ML NEB RESP TX SCH ×4 (07:47→19:06)
[2018-04-19] MEDS: NEBIVOLOL 5 MG TABLET PO SCH (10:11)
[2018-04-19] MEDS: tiZANidine 4 MG TABLET PO SCH ×2 (10:11→20:47)
[2018-04-19] MEDS: PANTOPRAZOLE 40 MG TABLET PO SCH (10:11)
[2018-04-19] MEDS: DOCUSATE SODIUM 100 MG CAPSULE PO SCH ×2 (10:11→20:47)
[2018-04-19] MEDS ORDERED: NALOXONE 0.4 MG/ML VIAL IV PRN (11:35)
[2018-04-19] MEDS: MORPHINE 4 MG/1 ML VIAL IV PRN ×2 (14:04→18:36)
[2018-04-19] MEDS: PROMETHAZINE INJ 25 MG in SODIUM CHLORIDE 0.9% 50 ML IV PRN ×2 (14:06→18:37)
[2018-04-20] MEDS: SODIUM CHLORIDE 0.9% 1,000 ML IV SCH ×3 (00:02→14:10)
[2018-04-20] MEDS: MORPHINE 4 MG/1 ML VIAL IV PRN ×4 (00:02→20:51)
[2018-04-20] MEDS: PROMETHAZINE INJ 25 MG in SODIUM CHLORIDE 0.9% 50 ML IV PRN (05:54)
[2018-04-20 06:12] LABS: Basophils % 0.7 % (0.0-0.8); Eosinophils # 0.3 10*3/uL (0.0-0.87); Eosinophils % 4.5 % (0.00-10.9); Hematocrit 34.9 VOL% (35.7-47.0); Hemoglobin 10.6 GM/DL (12.0-16.0); Immature Granulocytes % 0.5 %; Immature Granulocytes Absolute 0.03 #; Lymphocytes # 1.6 10*3/uL (1.4-4.0); Lymphocytes % 27.4 % (21.3-54.2); Mean Corpuscular HGB Conc 30.4 GM/DL (32-36); Mean Corpuscular Hemoglobin 27 PG (27-34); Mean Corpuscular Volume 89.7 FL (87-102); Monocytes # 0.4 10*3/uL (0.11-0.8); Neutrophils # 3.4 10*3/uL (1.4-7.4); Neutrophils % 59.9 % (38.7-73.9); Platelet Count 174 T/CUMM (130-400); Red Blood Count 3.89 MC/CUMM (3.8-5.5); Red Cell Distribution Width 17.2 % (9.3-17.3); White Blood Count 5.7 T/CUMM (4-12)
[2018-04-20 06:30] LABS: Osmolality,Calculated 287.6 MOS/KG (273-304); Potassium 3.6 MMOL/L (3.5-5.1)
[2018-04-20] MEDS: ALBUTEROL/IPRATROPIUM 3 ML NEB RESP TX SCH ×4 (07:16→20:16)
[2018-04-20] MEDS: NEBIVOLOL 5 MG TABLET PO SCH (08:15)
[2018-04-20] MEDS: tiZANidine 4 MG TABLET PO SCH ×2 (08:16→20:50)
[2018-04-20] MEDS: PANTOPRAZOLE 40 MG TABLET PO SCH (08:16)
[2018-04-20] MEDS: DOCUSATE SODIUM 100 MG CAPSULE PO SCH ×2 (08:16→20:52)
[2018-04-20] MEDS ORDERED: traMADol 50 MG TABLET PO ONE (17:51)
[2018-04-21] MEDS: ONDANSETRON 4 MG/2 ML VIAL IV PRN ×2 (03:10→09:44)
[2018-04-21] MEDS: MORPHINE 4 MG/1 ML VIAL IV PRN ×2 (03:10→09:44)
[2018-04-21] MEDS: SODIUM CHLORIDE 0.9% 1,000 ML IV SCH (05:28)
[2018-04-21] MEDS: ALBUTEROL/IPRATROPIUM 3 ML NEB RESP TX SCH ×2 (07:05→10:36)
[2018-04-21] MEDS: PANTOPRAZOLE 40 MG TABLET PO SCH (08:27)
[2018-04-21] MEDS: NEBIVOLOL 5 MG TABLET PO SCH (08:27)
[2018-04-21] MEDS: tiZANidine 4 MG TABLET PO SCH (08:27)
[2018-04-21] MEDS: DOCUSATE SODIUM 100 MG CAPSULE PO SCH (08:27)
[2018-04-21] MEDS ORDERED: fentaNYL 25 MCG/HR PATCH TRANSDERM SCH (09:00)
[2018-04-21 12:20] VITALS: BP 114/50
== END 2018-04-21 13:22 | disposition home or self-care (01) | DRG 312 ==
LOC: N.ED 08:29 → N.EDINP 11:37 → N.2W 12:26 → N.TELES 13:58
PROVIDERS: ADMIT Family Medicine; ATTEND Family Medicine

== ENCOUNTER 2018-07-07 03:54 | Inpatient (IN) ==
[2018-07-07] MEDS ORDERED: ALBUTEROL/IPRATROPIUM 3 ML NEB RESP TX STA ×3 (04:30→04:59)
[2018-07-07] MEDS ORDERED: methylPREDNISolone SOD SUC 125 MG/2 ML VIAL IV STA (04:58)
[2018-07-07 05:26] LABS: ABG Base Excess -0.1 MMOL/L (-2.5-2.5); ABG HCO3 22.3 MMOL/L (20-26); ABG Oxygen Saturation 97.5 % (95-100); ABG PCO2 30.7 MM HG (35-48); ABG PO2 90.9 MM HG (80-95); ABG TCO2 23.3 MMOL/L (23-27)
[2018-07-07 05:40] LABS: Basophils # 0.1 10*3/uL (0.0-0.2); Basophils % 0.8 % (0.0-0.8); Eosinophils # 0.3 10*3/uL (0.0-0.87); Eosinophils % 3.5 % (0.00-10.9); Hematocrit 42.9 VOL% (35.7-47.0); Hemoglobin 13.1 GM/DL (12.0-16.0); Immature Granulocytes % 1.2 %; Lymphocytes # 1.8 10*3/uL (1.4-4.0); Lymphocytes % 21.9 % (21.3-54.2); Mean Corpuscular HGB Conc 30.5 GM/DL (32-36); Mean Corpuscular Hemoglobin 27 PG (27-34); Mean Corpuscular Volume 86.8 FL (87-102); Mean Platelet Volume 10.8 FL (9.6-12.0); Monocytes # 0.8 10*3/uL (0.11-0.8); Monocytes % 9.1 % (1.7-12.7); Neutrophils # 5.3 10*3/uL (1.4-7.4); Neutrophils % 63.5 % (38.7-73.9); Platelet Count 211 T/CUMM (130-400); Red Blood Count 4.94 MC/CUMM (3.8-5.5); White Blood Count 8.3 T/CUMM (4-12)
[2018-07-07 05:48] LABS: INR 0.9; PT Patient Result 9.8 SECS
[2018-07-07 06:04] LABS: Albumin 3.3 G/DL (3.4-5.0); Bilirubin,Total 0.5 MG/DL (0.2-1.0); Calcium 8.3 MG/DL (8.5-10.1); Osmolality,Calculated 280.4 MOS/KG (273-304); Potassium 3.2 MMOL/L (3.5-5.1); Total Protein 7.1 G/DL (6.4-8.3)
[2018-07-07] MEDS ORDERED: ACETAMINOPHEN 325 MG TABLET PO PRN (07:09)
[2018-07-07] MEDS: ALBUTEROL/IPRATROPIUM 3 ML NEB RESP TX SCH ×4 (07:33→19:22)
[2018-07-07] MEDS: methylPREDNISolone SOD SUC 125 MG/2 ML VIAL IV SCH ×3 (08:57→23:29)
[2018-07-07] MEDS: SODIUM CHLORIDE 0.9% 1,000 ML IV SCH ×2 (08:58→15:19)
[2018-07-07] MEDS: LEVOFLOXACIN INJ 500 MG in PREMIX 1 EACH IV SCH (08:58)
[2018-07-07] MEDS: PANTOPRAZOLE 40 MG TABLET PO SCH (09:07)
[2018-07-07] MEDS ORDERED: CLOTRIMAZOLE/BETAMETHASONE CREAM 15 GM TUBE TOP PRN (09:42)
[2018-07-07] MEDS ORDERED: diphenhydrAMINE CAP 50 MG CAPSULE PO PRN (09:42)
[2018-07-07] MEDS: GABAPENTIN 600 MG TABLET PO SCH ×3 (12:13→22:00)
[2018-07-07] MEDS: ENOXAPARIN 40 MG/0.4 ML SYRINGE SUBCUT SCH (12:13)
[2018-07-07] MEDS: ONDANSETRON 4 MG/2 ML VIAL IV PRN (15:13)
[2018-07-07] MEDS: tiZANidine 4 MG TABLET PO SCH ×2 (15:19→22:00)
[2018-07-07] MEDS ORDERED: GLUCAGON 1 MG VIAL IM PRN (18:32)
[2018-07-07] MEDS ORDERED: DEXTROSE 50% 25 GM/50 ML VIAL IV PRN (18:32)
[2018-07-07] MEDS ORDERED: ZOLPIDEM 5 MG TABLET PO PRN (18:32)
[2018-07-07] MEDS ORDERED: NON-FORMULARY MEDICATION (Tizanidine Hcl [Zanaflex] 4 MG) PO SCH (21:00)
[2018-07-07] MEDS: PRAMIPEXOLE 1 MG TABLET PO SCH (22:00)
[2018-07-07] MEDS: INSULIN LISPRO 100 UNIT/ML SUBCUT SCH (22:01)
[2018-07-08] MEDS: ALBUTEROL/IPRATROPIUM 3 ML NEB RESP TX SCH ×7 (00:13→23:00)
[2018-07-08] MEDS: SODIUM CHLORIDE 0.9% 1,000 ML IV SCH (04:30)
[2018-07-08] MEDS: LEVOFLOXACIN INJ 500 MG in PREMIX 1 EACH IV SCH (07:42)
[2018-07-08] MEDS: tiZANidine 4 MG TABLET PO SCH ×3 (08:11→23:49)
[2018-07-08] MEDS: PRAMIPEXOLE 1 MG TABLET PO SCH ×2 (08:11→23:48)
[2018-07-08] MEDS: FUROSEMIDE 40 MG TABLET PO SCH (08:11)
[2018-07-08] MEDS: POTASSIUM CHLORIDE 20 MEQ TABLET PO SCH (08:11)
[2018-07-08] MEDS: NEBIVOLOL 5 MG TABLET PO SCH (08:12)
[2018-07-08] MEDS: GABAPENTIN 600 MG TABLET PO SCH ×4 (08:12→21:05)
[2018-07-08] MEDS: methylPREDNISolone SOD SUC 125 MG/2 ML VIAL IV SCH (08:12)
[2018-07-08] MEDS: PANTOPRAZOLE 40 MG TABLET PO SCH (08:12)
[2018-07-08] MEDS: ONDANSETRON 4 MG/2 ML VIAL IV PRN (08:13)
[2018-07-08] MEDS ORDERED: ERGOCALCIFEROL 50,000 UNIT CAPSULE PO SCH (09:42)
[2018-07-08] MEDS: ENOXAPARIN 40 MG/0.4 ML SYRINGE SUBCUT SCH (13:48)
[2018-07-08] MEDS: INSULIN LISPRO 100 UNIT/ML SUBCUT SCH ×4 (14:27→23:49)
[2018-07-08] MEDS: methylPREDNISolone SOD SUC 40 MG/1 ML VIAL IV SCH (20:05)
[2018-07-09] MEDS: ALBUTEROL/IPRATROPIUM 3 ML NEB RESP TX SCH ×3 (03:00→10:42)
[2018-07-09 07:02] LABS: Basophils % 0.1 % (0.0-0.8); Hematocrit 36.5 VOL% (35.7-47.0); Immature Granulocytes Absolute 0.27 #; Lymphocytes # 0.7 10*3/uL (1.4-4.0); Lymphocytes % 5.2 % (21.3-54.2); Mean Corpuscular HGB Conc 30.1 GM/DL (32-36); Mean Corpuscular Hemoglobin 27 PG (27-34); Mean Corpuscular Volume 88.6 FL (87-102); Mean Platelet Volume 11.1 FL (9.6-12.0); Monocytes # 0.6 10*3/uL (0.11-0.8); Monocytes % 4.5 % (1.7-12.7); Neutrophils # 11.6 10*3/uL (1.4-7.4); Neutrophils % 88.2 % (38.7-73.9); Platelet Count 207 T/CUMM (130-400); Red Blood Count 4.12 MC/CUMM (3.8-5.5); Red Cell Distribution Width 17.2 % (9.3-17.3)
[2018-07-09] MEDS: LEVOFLOXACIN INJ 500 MG in PREMIX 1 EACH IV SCH (07:06)
[2018-07-09 07:11] LABS: White Blood Count 13.2 T/CUMM (4-12)
[2018-07-09 07:13] LABS: Calcium 8.5 MG/DL (8.5-10.1); Osmolality,Calculated 292.3 MOS/KG (273-304); Potassium 4.2 MMOL/L (3.5-5.1)
[2018-07-09] MEDS: NEBIVOLOL 5 MG TABLET PO SCH (08:34)
[2018-07-09] MEDS: POTASSIUM CHLORIDE 20 MEQ TABLET PO SCH (08:34)
[2018-07-09] MEDS: GABAPENTIN 600 MG TABLET PO SCH ×2 (08:35→13:27)
[2018-07-09] MEDS: FUROSEMIDE 40 MG TABLET PO SCH (08:35)
[2018-07-09] MEDS: PRAMIPEXOLE 1 MG TABLET PO SCH (08:35)
[2018-07-09] MEDS: tiZANidine 4 MG TABLET PO SCH (08:35)
[2018-07-09] MEDS: PANTOPRAZOLE 40 MG TABLET PO SCH (08:36)
[2018-07-09] MEDS: methylPREDNISolone SOD SUC 40 MG/1 ML VIAL IV SCH (08:36)
[2018-07-09] MEDS: ONDANSETRON 4 MG/2 ML VIAL IV PRN (08:36)
[2018-07-09] MEDS: INSULIN LISPRO 100 UNIT/ML SUBCUT SCH ×2 (09:21→13:30)
[2018-07-09] MEDS: ENOXAPARIN 40 MG/0.4 ML SYRINGE SUBCUT SCH (09:25)
[2018-07-09 10:47] VITALS: BP 144/80
[2018-07-10] MEDS ORDERED: fentaNYL 25 MCG/HR PATCH TRANSDERM SCH (09:00)
== END 2018-07-09 15:25 | disposition home or self-care (01) | DRG 191 ==
LOC: N.ED 03:54 → N.EDINP 06:06 → N.5E 06:32
PROVIDERS: ADMIT Family Medicine; ATTEND Family Medicine

== ENCOUNTER 2018-07-15 09:37 | Observation (INO) ==
[2018-07-15] MEDS ORDERED: DEXTROSE 50% 25 GM/50 ML VIAL IV PRN (10:28)
[2018-07-15] MEDS ORDERED: ACETAMINOPHEN 325 MG TABLET PO PRN (10:28)
[2018-07-15] MEDS ORDERED: GLUCAGON 1 MG VIAL IM PRN (10:28)
[2018-07-15] MEDS ORDERED: diphenhydrAMINE CAP 50 MG CAPSULE PO PRN (10:31)
[2018-07-15] MEDS ORDERED: CLOTRIMAZOLE/BETAMETHASONE CREAM 15 GM TUBE TOP PRN (10:31)
[2018-07-15 12:43] LABS: Basophils % 0.3 % (0.0-0.8); Eosinophils # 0.2 10*3/uL (0.0-0.87); Eosinophils % 1.9 % (0.00-10.9); Hematocrit 42.1 VOL% (35.7-47.0); Hemoglobin 12.7 GM/DL (12.0-16.0); Immature Granulocytes % 2.5 %; Immature Granulocytes Absolute 0.28 #; Lymphocytes # 2.6 10*3/uL (1.4-4.0); Lymphocytes % 23.7 % (21.3-54.2); Mean Corpuscular HGB Conc 30.2 GM/DL (32-36); Mean Corpuscular Hemoglobin 27 PG (27-34); Mean Corpuscular Volume 88.3 FL (87-102); Monocytes # 0.6 10*3/uL (0.11-0.8); Monocytes % 5.2 % (1.7-12.7); Neutrophils # 7.3 10*3/uL (1.4-7.4); Neutrophils % 66.4 % (38.7-73.9); Platelet Count 222 T/CUMM (130-400); Red Blood Count 4.77 MC/CUMM (3.8-5.5); Red Cell Distribution Width 17.1 % (9.3-17.3)
[2018-07-15] MEDS ORDERED: ALBUTEROL/IPRATROPIUM 3 ML NEB RESP TX SCH (13:00)
[2018-07-15] MEDS ORDERED: fentaNYL 25 MCG/HR PATCH TRANSDERM SCH (13:08)
[2018-07-15 13:12] LABS: Troponin I < 0.015 NG/ML (0.00-0.045)
[2018-07-15 13:21] LABS: Albumin 3.1 G/DL (3.4-5.0); Calcium 8.8 MG/DL (8.5-10.1); Osmolality,Calculated 280.4 MOS/KG (273-304); Potassium 3.6 MMOL/L (3.5-5.1); Total Protein 7.5 G/DL (6.4-8.3)
[2018-07-15] MEDS: ENOXAPARIN 40 MG/0.4 ML SYRINGE SUBCUT SCH (13:27)
[2018-07-15] MEDS: methylPREDNISolone SOD SUC 40 MG/1 ML VIAL IV SCH ×3 (13:28→23:00)
[2018-07-15] MEDS: GABAPENTIN 600 MG TABLET PO SCH ×3 (13:28→21:33)
[2018-07-15] MEDS: cefTRIAXone 1,000 MG in SYRINGE 1 EACH IV SCH (14:59)
[2018-07-15] MEDS: tiZANidine 4 MG TABLET PO SCH ×2 (15:00→21:34)
[2018-07-15 15:44] LABS: Apearance,Urine CLEAR (Clear); Bacteria,Urine Occasional /HPF (Few); Bilirubin,Urine Negative (Negative); Blood, Urine Negative (Negative); Glucose,Urine (UA) Negative (Negative); Ketones,Urine Negative (Negative); Mucus,Urine Occasional /LPF (Occasional); Nitrite,Urine Negative (Negative); Protein,Urine Negative; RBC,Urine 2 /HPF (0-4); Squamous Epithelial Cell,Urine Occasional /HPF (0-10); Urine Color Yellow (Yellow); Urine Specific Gravity 1.026 (1.001-1.035); WBC,Urine 1 /HPF (0-6)
[2018-07-15] MEDS: MORPHINE 4 MG/1 ML VIAL IV PRN ×2 (16:36→21:33)
[2018-07-15] MEDS: INSULIN LISPRO 100 UNIT/ML SUBCUT SCH ×2 (16:37→21:34)
[2018-07-15] MEDS: ALBUTEROL/IPRATROPIUM 3 ML NEB RESP TX SCH (20:00)
[2018-07-15] MEDS ORDERED: ALBUTEROL SULFATE INH SCH (21:00)
[2018-07-15] MEDS: DOCUSATE SODIUM 100 MG CAPSULE PO SCH (21:32)
[2018-07-15] MEDS: ONDANSETRON 4 MG/2 ML VIAL IV PRN (21:33)
[2018-07-16] MEDS: MORPHINE 4 MG/1 ML VIAL IV PRN ×3 (01:44→12:48)
[2018-07-16] MEDS: ONDANSETRON 4 MG/2 ML VIAL IV PRN ×2 (04:38→11:02)
[2018-07-16] MEDS: ALBUTEROL/IPRATROPIUM 3 ML NEB RESP TX SCH ×4 (07:30→19:06)
[2018-07-16] MEDS: INSULIN LISPRO 100 UNIT/ML SUBCUT SCH ×4 (08:58→20:21)
[2018-07-16] MEDS ORDERED: NEBIVOLOL 5 MG TABLET PO SCH (09:00)
[2018-07-16] MEDS: PANTOPRAZOLE 40 MG TABLET PO SCH (09:01)
[2018-07-16] MEDS: GABAPENTIN 600 MG TABLET PO SCH ×4 (09:02→20:28)
[2018-07-16] MEDS: POTASSIUM CHLORIDE 20 MEQ TABLET PO SCH (09:02)
[2018-07-16] MEDS: FUROSEMIDE 40 MG TABLET PO SCH (09:03)
[2018-07-16] MEDS: DOCUSATE SODIUM 100 MG CAPSULE PO SCH ×2 (09:04→20:21)
[2018-07-16] MEDS: tiZANidine 4 MG TABLET PO SCH ×4 (09:04→23:08)
[2018-07-16] MEDS: ENOXAPARIN 40 MG/0.4 ML SYRINGE SUBCUT SCH (10:16)
[2018-07-16] MEDS: methylPREDNISolone SOD SUC 40 MG/1 ML VIAL IV SCH ×2 (10:16→20:22)
[2018-07-16] MEDS: cefTRIAXone 1,000 MG in SYRINGE 1 EACH IV SCH (14:04)
[2018-07-16] MEDS ORDERED: SODIUM CHLORIDE 0.9% 1,000 ML IV SCH (16:00)
[2018-07-16] MEDS ORDERED: diphenhydrAMINE 50 MG/1 ML VIAL IV PRN (21:00)
[2018-07-16] MEDS: BUDESONIDE/FORMOTEROL 160-4.5 INHALER 6 GM INH SCH (22:42)
[2018-07-17] MEDS: ALBUTEROL/IPRATROPIUM 3 ML NEB RESP TX SCH ×3 (07:36→14:13)
[2018-07-17] MEDS: INSULIN LISPRO 100 UNIT/ML SUBCUT SCH ×2 (08:26→12:41)
[2018-07-17] MEDS: methylPREDNISolone SOD SUC 40 MG/1 ML VIAL IV SCH (08:27)
[2018-07-17] MEDS: ENOXAPARIN 40 MG/0.4 ML SYRINGE SUBCUT SCH ×2 (08:27→09:45)
[2018-07-17] MEDS: PANTOPRAZOLE 40 MG TABLET PO SCH (08:28)
[2018-07-17] MEDS: GABAPENTIN 600 MG TABLET PO SCH ×2 (08:28→12:50)
[2018-07-17] MEDS: DOCUSATE SODIUM 100 MG CAPSULE PO SCH (08:28)
[2018-07-17] MEDS: POTASSIUM CHLORIDE 20 MEQ TABLET PO SCH (08:28)
[2018-07-17] MEDS: FUROSEMIDE 40 MG TABLET PO SCH (08:28)
[2018-07-17] MEDS: BUDESONIDE/FORMOTEROL 160-4.5 INHALER 6 GM INH SCH (08:30)
[2018-07-17] MEDS: tiZANidine 4 MG TABLET PO SCH (09:20)
[2018-07-17 12:06] VITALS: BP 139/59
[2018-07-17] MEDS: cefTRIAXone 1,000 MG in SYRINGE 1 EACH IV SCH (12:48)
[2018-07-18] MEDS ORDERED: fentaNYL 25 MCG/HR PATCH TRANSDERM SCH (09:00)
== END 2018-07-17 15:20 | disposition home health service (06) ==
LOC: N.5E
PROVIDERS: ADMIT Family Medicine; ATTEND Family Medicine

== ENCOUNTER 2019-03-08 12:29 | Observation (INO) ==
[2019-03-08] MEDS ORDERED: ASPIRIN 325 MG TABLET PO STA (12:50)
[2019-03-08] MEDS ORDERED: NITROGLYCERIN 2% OINT 1 INCH/GM PACK TOP STA (12:50)
[2019-03-08] MEDS ORDERED: ALBUTEROL 2.5 MG/3 ML NEB RESP TX STA (12:52)
[2019-03-08] MEDS: NITROGLYCERIN SL 0.4 MG TABLET SL PRN ×2 (13:10→16:41)
[2019-03-08 13:58] LABS: Basophils # 0.1 10*3/uL (0.0-0.2); Basophils % 0.6 % (0.0-0.8); Eosinophils # 0.2 10*3/uL (0.0-0.87); Eosinophils % 2.4 % (0.00-10.9); Hematocrit 41.7 VOL% (35.7-47.0); Hemoglobin 13.2 GM/DL (12.0-16.0); Immature Granulocytes % 0.7 %; Immature Granulocytes Absolute 0.07 #; Lymphocytes # 2.6 10*3/uL (1.4-4.0); Lymphocytes % 27.6 % (21.3-54.2); Mean Corpuscular HGB Conc 31.7 GM/DL (32-36); Mean Corpuscular Volume 90.3 FL (87-102); Mean Platelet Volume 11.5 FL (9.6-12.0); Monocytes % 5.2 % (1.7-12.7); Neutrophils % 63.5 % (38.7-73.9); Platelet Count 204 T/CUMM (130-400); Red Blood Count 4.62 MC/CUMM (3.8-5.5); Red Cell Distribution Width 14.6 % (9.3-17.3); White Blood Count 9.6 T/CUMM (4-12)
[2019-03-08 14:17] LABS: Calcium 8.5 MG/DL (8.5-10.1)
[2019-03-08] MEDS ORDERED: MAGNESIUM SULF RIDER 2 GM in PREMIX 1 EACH IV PRN (14:37)
[2019-03-08] MEDS ORDERED: MAGNESIUM SULF RIDER 4 GM in PREMIX 1 EACH IV PRN (14:37)
[2019-03-08] MEDS ORDERED: POTASSIUM CHLORIDE 20 MEQ TABLET PO PRN (14:37)
[2019-03-08] MEDS ORDERED: ENOXAPARIN 40 MG/0.4 ML SYRINGE SUBCUT SCH (15:00)
[2019-03-08] MEDS ORDERED: ONDANSETRON ODT 4 MG TABLET PO PRN (17:38)
[2019-03-08] MEDS: NITROGLYCERIN 2% OINT 1 INCH/GM PACK TOP SCH (18:08)
[2019-03-08] MEDS: PRAMIPEXOLE 1 MG TABLET PO SCH (20:43)
[2019-03-08] MEDS: GABAPENTIN 600 MG TABLET PO SCH (20:43)
[2019-03-08] MEDS: CLOTRIMAZOLE/BETAMETHASONE CREAM 15 GM TUBE TOP SCH (20:44)
[2019-03-08] MEDS: BUDESONIDE/FORMOTEROL 160-4.5 INHALER 6 GM INH SCH (20:44)
[2019-03-08] MEDS: SODIUM CHLORIDE 0.45% 1,000 ML IV SCH ×2 (20:51→23:48)
[2019-03-08] MEDS ORDERED: ALBUTEROL 2.5 MG/3 ML NEB RESP TX PRN (21:00)
[2019-03-09] MEDS: NITROGLYCERIN 2% OINT 1 INCH/GM PACK TOP SCH ×3 (00:44→13:54)
[2019-03-09 05:02] LABS: Basophils # 0.1 10*3/uL (0.0-0.2); Basophils % 0.9 % (0.0-0.8); Eosinophils # 0.3 10*3/uL (0.0-0.87); Eosinophils % 3.5 % (0.00-10.9); Hematocrit 39.1 VOL% (35.7-47.0); Immature Granulocytes % 1.4 %; Immature Granulocytes Absolute 0.11 #; Lymphocytes # 2.4 10*3/uL (1.4-4.0); Mean Corpuscular HGB Conc 30.7 GM/DL (32-36); Mean Corpuscular Volume 93.1 FL (87-102); Mean Platelet Volume 11.7 FL (9.6-12.0); Monocytes % 5.5 % (1.7-12.7); Neutrophils % 57.7 % (38.7-73.9); Platelet Count 178 T/CUMM (130-400); Red Cell Distribution Width 14.7 % (9.3-17.3); White Blood Count 7.7 T/CUMM (4-12)
[2019-03-09 05:25] LABS: Calcium 7.7 MG/DL (8.5-10.1); Osmolality,Calculated 285.3 MOS/KG (273-304)
[2019-03-09 05:27] LABS: Risk Ratio 3.73
[2019-03-09] MEDS ORDERED: POLYETHYLENE GLYCOL POWDER 17 GM PACK PO SCH (09:00)
[2019-03-09] MEDS ORDERED: ASPIRIN 325 MG TABLET PO SCH (09:00)
[2019-03-09] MEDS ORDERED: NEBIVOLOL 5 MG TABLET PO SCH (09:00)
[2019-03-09] MEDS ORDERED: POTASSIUM CHLORIDE 20 MEQ TABLET PO SCH (09:00)
[2019-03-09] MEDS ORDERED: PANTOPRAZOLE 40 MG TABLET PO SCH ×2 (09:00)
[2019-03-09] MEDS ORDERED: tiZANidine 4 MG TABLET PO SCH (09:00)
[2019-03-09] MEDS: SODIUM CHLORIDE 0.45% 1,000 ML IV SCH (09:19)
[2019-03-09] MEDS: CLOTRIMAZOLE/BETAMETHASONE CREAM 15 GM TUBE TOP SCH (09:27)
[2019-03-09] MEDS: BUDESONIDE/FORMOTEROL 160-4.5 INHALER 6 GM INH SCH (09:27)
[2019-03-09] MEDS: PRAMIPEXOLE 1 MG TABLET PO SCH (09:28)
[2019-03-09] MEDS: GABAPENTIN 600 MG TABLET PO SCH (09:29)
[2019-03-09] MEDS ORDERED: FLUCONAZOLE 200 MG TABLET PO ONE (10:07)
[2019-03-09 13:02] VITALS: BP 96/57
[2019-03-09] MEDS ORDERED: SERTRALINE 25 MG TABLET PO SCH (22:19)
[2019-03-10] MEDS ORDERED: ERGOCALCIFEROL 50,000 UNIT CAPSULE PO SCH (09:00)
[2019-03-10] MEDS ORDERED: FUROSEMIDE 20 MG TABLET PO SCH (09:00)
== END 2019-03-09 13:00 | disposition home or self-care (01) ==
LOC: N.EDINP 12:29 → N.ED 12:29 → N.TELES 16:42
PROVIDERS: ADMIT Family Medicine; ATTEND Family Medicine

== ENCOUNTER 2019-03-22 10:19 | Observation (INO) ==
[2019-03-22] MEDS ORDERED: ALBUTEROL NEB SOLN 5 MG/ML 20 ML/BOTTLE CONT NEB STA (10:33)
[2019-03-22] MEDS ORDERED: methylPREDNISolone SOD SUC 125 MG/2 ML VIAL IV STA (10:35)
[2019-03-22 11:07] LABS: Basophils # 0.1 10*3/uL (0.0-0.2); Basophils % 1.2 % (0.0-0.8); Eosinophils # 0.4 10*3/uL (0.0-0.87); Eosinophils % 6.1 % (0.00-10.9); Hematocrit 40.7 VOL% (35.7-47.0); Hemoglobin 12.9 GM/DL (12.0-16.0); Immature Granulocytes Absolute 0.06 #; Lymphocytes # 1.1 10*3/uL (1.4-4.0); Lymphocytes % 18.3 % (21.3-54.2); Mean Corpuscular HGB Conc 31.7 GM/DL (32-36); Mean Corpuscular Volume 91.1 FL (87-102); Monocytes % 6.8 % (1.7-12.7); Neutrophils % 66.6 % (38.7-73.9); Platelet Count 184 T/CUMM (130-400); Red Blood Count 4.47 MC/CUMM (3.8-5.5); Red Cell Distribution Width 14.8 % (9.3-17.3); White Blood Count 5.7 T/CUMM (4-12)
[2019-03-22 11:12] LABS: Calcium 8.4 MG/DL (8.5-10.1); Osmolality,Calculated 290.7 MOS/KG (273-304)
[2019-03-22] MEDS ORDERED: ALBUTEROL/IPRATROPIUM 3 ML NEB RESP TX STA (11:35)
[2019-03-22] MEDS ORDERED: AZITHROMYCIN INJ 500 MG in SODIUM CHLORIDE 0.9% 250 ML IV STA (11:48)
[2019-03-22 11:58] LABS: ABG Base Excess -3.6 MMOL/L (-2.5-2.5); ABG HCO3 21.4 MMOL/L (20-26); ABG Oxygen Saturation 94.9 % (95-100); ABG PCO2 36.3 MM HG (35-48); ABG PH 7.372 (7.35-7.45); ABG PO2 73.8 MM HG (80-95); ABG TCO2 18.3 MMOL/L (23-27)
[2019-03-22] MEDS ORDERED: ONDANSETRON 4 MG/2 ML VIAL IV PRN (12:16)
[2019-03-22] MEDS ORDERED: ALBUTEROL/IPRATROPIUM 3 ML NEB RESP TX PRN (12:16)
[2019-03-22] MEDS ORDERED: diphenhydrAMINE CAP 25 MG CAPSULE PO PRN (13:29)
[2019-03-22] MEDS ORDERED: ONDANSETRON ODT 4 MG TABLET PO PRN (13:29)
[2019-03-22] MEDS ORDERED: GLUCAGON 1 MG VIAL IM PRN (13:29)
[2019-03-22] MEDS ORDERED: DEXTROSE 10% 25 GM/250 ML BAG IV PRN (13:29)
[2019-03-22] MEDS: cefTRIAXone 2,000 MG in SYRINGE 1 EACH IV SCH (14:40)
[2019-03-22] MEDS: FUROSEMIDE 20 MG/2 ML VIAL IV SCH (14:40)
[2019-03-22] MEDS: GABAPENTIN 600 MG TABLET PO SCH ×2 (14:41→20:51)
[2019-03-22] MEDS: POTASSIUM CHLORIDE 20 MEQ TABLET PO PRN ×3 (14:41→20:51)
[2019-03-22] MEDS: INSULIN LISPRO 100 UNIT/ML SUBCUT SCH ×2 (16:18→20:54)
[2019-03-22] MEDS: PROMETHAZINE 25 MG TABLET PO PRN (16:37)
[2019-03-22] MEDS ORDERED: hydrALAZINE 20 MG/1 ML VIAL IV PRN (16:46)
[2019-03-22] MEDS: guaiFENesin 200 MG/10 ML UDCUP PO PRN (16:58)
[2019-03-22] MEDS: ALBUTEROL 2.5 MG/3 ML NEB RESP TX SCH (19:13)
[2019-03-22] MEDS: tiZANidine 4 MG TABLET PO SCH (20:51)
[2019-03-22] MEDS: DOCUSATE SODIUM 100 MG CAPSULE PO SCH (20:52)
[2019-03-22] MEDS: PRAMIPEXOLE 1 MG TABLET PO SCH (20:52)
[2019-03-22] MEDS: CLOTRIMAZOLE/BETAMETHASONE CREAM 15 GM TUBE TOP SCH (20:53)
[2019-03-22] MEDS: BUDESONIDE/FORMOTEROL 160-4.5 INHALER 6 GM INH SCH (20:53)
[2019-03-22] MEDS: NYSTATIN CREAM 15 GM TUBE TOP SCH (21:59)
[2019-03-23] MEDS: PROMETHAZINE 25 MG TABLET PO PRN (01:05)
[2019-03-23 03:05] LABS: Calcium 8.5 MG/DL (8.5-10.1); Osmolality,Calculated 291.1 MOS/KG (273-304)
[2019-03-23] MEDS: ALBUTEROL 2.5 MG/3 ML NEB RESP TX SCH ×2 (07:13→19:30)
[2019-03-23] MEDS: INSULIN LISPRO 100 UNIT/ML SUBCUT SCH ×4 (08:55→20:55)
[2019-03-23] MEDS: NYSTATIN CREAM 15 GM TUBE TOP SCH ×2 (08:56→20:24)
[2019-03-23] MEDS: BUDESONIDE/FORMOTEROL 160-4.5 INHALER 6 GM INH SCH ×2 (08:56→20:24)
[2019-03-23] MEDS: CLOTRIMAZOLE/BETAMETHASONE CREAM 15 GM TUBE TOP SCH ×2 (08:56→20:25)
[2019-03-23] MEDS: NEBIVOLOL 5 MG TABLET PO SCH (08:57)
[2019-03-23] MEDS: POTASSIUM CHLORIDE 20 MEQ TABLET PO SCH (08:57)
[2019-03-23] MEDS: FUROSEMIDE 20 MG/2 ML VIAL IV SCH (08:57)
[2019-03-23] MEDS: PRAMIPEXOLE 1 MG TABLET PO SCH ×2 (08:57→20:22)
[2019-03-23] MEDS: ASPIRIN CHEW 81 MG TABLET PO SCH (08:57)
[2019-03-23] MEDS: PANTOPRAZOLE 40 MG TABLET PO SCH (08:57)
[2019-03-23] MEDS: DOCUSATE SODIUM 100 MG CAPSULE PO SCH ×2 (08:57→20:23)
[2019-03-23] MEDS: GABAPENTIN 600 MG TABLET PO SCH ×3 (08:57→20:23)
[2019-03-23] MEDS: methylPREDNISolone SOD SUC 40 MG/1 ML VIAL IV SCH ×2 (08:58→20:23)
[2019-03-23] MEDS: POLYETHYLENE GLYCOL POWDER 17 GM PACK PO SCH (09:04)
[2019-03-23] MEDS: tiZANidine 4 MG TABLET PO SCH ×2 (12:58→20:23)
[2019-03-23] MEDS: cefTRIAXone 2,000 MG in SYRINGE 1 EACH IV SCH (14:26)
[2019-03-24] MEDS: PROMETHAZINE 25 MG TABLET PO PRN (05:02)
[2019-03-24] MEDS: ALBUTEROL 2.5 MG/3 ML NEB RESP TX SCH (07:25)
[2019-03-24] MEDS: INSULIN LISPRO 100 UNIT/ML SUBCUT SCH ×2 (08:17→13:45)
[2019-03-24] MEDS: FUROSEMIDE 20 MG/2 ML VIAL IV SCH (08:46)
[2019-03-24] MEDS: methylPREDNISolone SOD SUC 40 MG/1 ML VIAL IV SCH (08:47)
[2019-03-24] MEDS: PRAMIPEXOLE 1 MG TABLET PO SCH (08:47)
[2019-03-24] MEDS: tiZANidine 4 MG TABLET PO SCH (08:48)
[2019-03-24] MEDS: DOCUSATE SODIUM 100 MG CAPSULE PO SCH (08:48)
[2019-03-24] MEDS: guaiFENesin 200 MG/10 ML UDCUP PO PRN (08:48)
[2019-03-24] MEDS: ASPIRIN CHEW 81 MG TABLET PO SCH (08:48)
[2019-03-24] MEDS: PANTOPRAZOLE 40 MG TABLET PO SCH (08:48)
[2019-03-24] MEDS: GABAPENTIN 600 MG TABLET PO SCH ×2 (08:49→14:23)
[2019-03-24] MEDS: BUDESONIDE/FORMOTEROL 160-4.5 INHALER 6 GM INH SCH (08:49)
[2019-03-24] MEDS: POTASSIUM CHLORIDE 20 MEQ TABLET PO SCH (08:49)
[2019-03-24] MEDS: NEBIVOLOL 5 MG TABLET PO SCH (08:49)
[2019-03-24] MEDS: POLYETHYLENE GLYCOL POWDER 17 GM PACK PO SCH (08:50)
[2019-03-24] MEDS: NYSTATIN CREAM 15 GM TUBE TOP SCH (08:50)
[2019-03-24] MEDS: CLOTRIMAZOLE/BETAMETHASONE CREAM 15 GM TUBE TOP SCH (08:50)
[2019-03-24] MEDS: cefTRIAXone 2,000 MG in SYRINGE 1 EACH IV SCH (14:18)
[2019-03-24] MEDS ORDERED: HEPARIN LOCK FLUSH 500 UNIT/5 ML SYRINGE IV PRN (14:34)
[2019-03-24 15:01] VITALS: BP 139/88
== END 2019-03-24 15:39 | disposition home or self-care (01) ==
LOC: N.ED 10:19 → N.EDINP 10:19 → N.5E 13:28
PROVIDERS: ADMIT Family Medicine; ATTEND Family Medicine

== ENCOUNTER 2019-07-16 09:44 | Inpatient (IN) ==
[2019-07-16] MEDS ORDERED: ALBUTEROL/IPRATROPIUM 3 ML NEB RESP TX STA (10:11)
[2019-07-16] MEDS ORDERED: methylPREDNISolone SOD SUC 125 MG/2 ML VIAL IV STA (10:11)
[2019-07-16 10:23] LABS: Basophils % 0.4 % (0.0-0.8); Eosinophils # 0.1 10*3/uL (0.0-0.87); Eosinophils % 0.8 % (0.00-10.9); Hematocrit 44.9 VOL% (35.7-47.0); Hemoglobin 14.2 GM/DL (12.0-16.0); Immature Granulocytes % 3.3 %; Immature Granulocytes Absolute 0.37 #; Lymphocytes # 2.9 10*3/uL (1.4-4.0); Lymphocytes % 26.1 % (21.3-54.2); Mean Corpuscular HGB Conc 31.6 GM/DL (32-36); Mean Corpuscular Volume 91.1 FL (87-102); Mean Platelet Volume 11.7 FL (9.6-12.0); Monocytes % 5.4 % (1.7-12.7); Platelet Count 197 T/CUMM (130-400); Red Blood Count 4.93 MC/CUMM (3.8-5.5); Red Cell Distribution Width 14.6 % (9.3-17.3); White Blood Count 11.2 T/CUMM (4-12)
[2019-07-16 10:30] LABS: Bilirubin,Total 0.6 MG/DL (0.2-1.0); Calcium 8.3 MG/DL (8.5-10.1); Osmolality,Calculated 281.4 MOS/KG (273-304); Total Protein 6.2 G/DL (6.4-8.3)
[2019-07-16] MEDS ORDERED: MORPHINE 4 MG/1 ML VIAL IV STA (13:04)
[2019-07-16] MEDS ORDERED: ALBUTEROL/IPRATROPIUM 3 ML NEB RESP TX PRN (15:41)
[2019-07-16] MEDS ORDERED: hydrALAZINE 20 MG/1 ML VIAL IV PRN (15:41)
[2019-07-16] MEDS: LORazepam 2 MG/1 ML VIAL IV PRN (16:08)
[2019-07-16] MEDS: cefTRIAXone 1,000 MG in SYRINGE 1 EACH IV SCH (16:10)
[2019-07-16] MEDS: MORPHINE 4 MG/1 ML VIAL IV PRN ×2 (16:17→22:27)
[2019-07-16] MEDS: GABAPENTIN 600 MG TABLET PO SCH ×2 (17:15→21:49)
[2019-07-16] MEDS: ALBUTEROL/IPRATROPIUM 3 ML NEB RESP TX SCH (19:47)
[2019-07-16] MEDS: BUDESONIDE/FORMOTEROL 160-4.5 INHALER 6 GM INH SCH (21:49)
[2019-07-17] MEDS: ALBUTEROL/IPRATROPIUM 3 ML NEB RESP TX SCH ×6 (00:50→19:10)
[2019-07-17] MEDS: MORPHINE 4 MG/1 ML VIAL IV PRN ×3 (04:52→20:47)
[2019-07-17] MEDS: GABAPENTIN 600 MG TABLET PO SCH ×4 (09:03→20:47)
[2019-07-17] MEDS: ASPIRIN CHEW 81 MG TABLET PO SCH (09:03)
[2019-07-17] MEDS: OLMESARTAN 20 MG TABLET PO SCH (09:03)
[2019-07-17] MEDS: BUDESONIDE/FORMOTEROL 160-4.5 INHALER 6 GM INH SCH ×2 (09:04→20:52)
[2019-07-17] MEDS: FUROSEMIDE 20 MG/2 ML VIAL IV SCH (09:04)
[2019-07-17] MEDS: methylPREDNISolone SOD SUC 40 MG/1 ML VIAL IV SCH ×2 (09:04→20:47)
[2019-07-17] MEDS: LORazepam 2 MG/1 ML VIAL IV PRN ×2 (13:07→20:47)
[2019-07-17] MEDS: cefTRIAXone 1,000 MG in SYRINGE 1 EACH IV SCH (15:54)
[2019-07-18] MEDS: ALBUTEROL/IPRATROPIUM 3 ML NEB RESP TX SCH ×7 (00:04→23:47)
[2019-07-18] MEDS: ONDANSETRON 4 MG/2 ML VIAL IV PRN ×4 (00:08→15:55)
[2019-07-18] MEDS: MORPHINE 4 MG/1 ML VIAL IV PRN ×4 (06:08→22:11)
[2019-07-18] MEDS ORDERED: LOPERAMIDE 2 MG CAPSULE PO ONE (09:18)
[2019-07-18] MEDS ORDERED: busPIRone 10 MG TABLET PO ONE (09:19)
[2019-07-18] MEDS: methylPREDNISolone SOD SUC 40 MG/1 ML VIAL IV SCH ×2 (09:19→20:45)
[2019-07-18] MEDS: FUROSEMIDE 20 MG/2 ML VIAL IV SCH (09:19)
[2019-07-18] MEDS: OLMESARTAN 20 MG TABLET PO SCH (09:20)
[2019-07-18] MEDS: ASPIRIN CHEW 81 MG TABLET PO SCH (09:20)
[2019-07-18] MEDS: GABAPENTIN 600 MG TABLET PO SCH ×4 (09:20→20:46)
[2019-07-18] MEDS: BUDESONIDE/FORMOTEROL 160-4.5 INHALER 6 GM INH SCH ×2 (10:41→20:47)
[2019-07-18 13:35] LABS: Calcium 7.9 MG/DL (8.5-10.1); Osmolality,Calculated 291.4 MOS/KG (273-304)
[2019-07-18] MEDS: cefTRIAXone 1,000 MG in SYRINGE 1 EACH IV SCH (15:54)
[2019-07-18] MEDS: busPIRone 10 MG TABLET PO SCH ×2 (15:55→20:46)
[2019-07-18] MEDS: LORazepam 2 MG/1 ML VIAL IV PRN (22:11)
[2019-07-19] MEDS: ONDANSETRON 4 MG/2 ML VIAL IV PRN (01:35)
[2019-07-19] MEDS: ALBUTEROL/IPRATROPIUM 3 ML NEB RESP TX SCH ×4 (03:45→14:51)
[2019-07-19] MEDS: MORPHINE 4 MG/1 ML VIAL IV PRN (05:55)
[2019-07-19] MEDS: busPIRone 10 MG TABLET PO SCH ×2 (09:48→15:05)
[2019-07-19] MEDS: BUDESONIDE/FORMOTEROL 160-4.5 INHALER 6 GM INH SCH (09:48)
[2019-07-19] MEDS: GABAPENTIN 600 MG TABLET PO SCH ×2 (09:48→15:05)
[2019-07-19] MEDS: OLMESARTAN 20 MG TABLET PO SCH (09:48)
[2019-07-19] MEDS: FUROSEMIDE 20 MG/2 ML VIAL IV SCH (09:48)
[2019-07-19] MEDS: ASPIRIN CHEW 81 MG TABLET PO SCH (09:48)
[2019-07-19] MEDS: methylPREDNISolone SOD SUC 40 MG/1 ML VIAL IV SCH (09:52)
[2019-07-19 15:54] VITALS: BP 145/71
== END 2019-07-19 16:00 | disposition home health service (06) | DRG 191 ==
LOC: N.ED 09:44 → N.EDINP 09:44 → N.2W 14:37
PROVIDERS: ADMIT Family Medicine; ATTEND Family Medicine

== ENCOUNTER 2019-07-30 10:15 | Inpatient (IN) ==
[2019-07-30] MEDS ORDERED: ACETAMINOPHEN 325 MG TABLET PO PRN (11:29)
[2019-07-30] MEDS ORDERED: ALBUTEROL/IPRATROPIUM 3 ML NEB RESP TX PRN ×2 (11:32→11:34)
[2019-07-30] MEDS ORDERED: hydrALAZINE 20 MG/1 ML VIAL IV PRN (11:36)
[2019-07-30] MEDS ORDERED: PROMETHAZINE INJ 12.5 MG in SODIUM CHLORIDE 0.9% 50 ML IV PRN (11:36)
[2019-07-30] MEDS ORDERED: methylPREDNISolone SOD SUC 40 MG/1 ML VIAL IV SCH (12:00)
[2019-07-30 12:18] LABS: Basophils % 0.6 % (0.0-0.8); Eosinophils # 0.2 10*3/uL (0.0-0.87); Eosinophils % 2.7 % (0.00-10.9); Hematocrit 35.2 VOL% (35.7-47.0); Hemoglobin 10.7 GM/DL (12.0-16.0); Immature Granulocytes Absolute 0.07 #; Lymphocytes # 1.9 10*3/uL (1.4-4.0); Lymphocytes % 26.4 % (21.3-54.2); Mean Corpuscular HGB Conc 30.4 GM/DL (32-36); Mean Corpuscular Volume 95.4 FL (87-102); Mean Platelet Volume 10.8 FL (9.6-12.0); Monocytes % 10.5 % (1.7-12.7); Neutrophils % 58.8 % (38.7-73.9); Platelet Count 216 T/CUMM (130-400); Red Blood Count 3.69 MC/CUMM (3.8-5.5); Red Cell Distribution Width 14.3 % (9.3-17.3); White Blood Count 7.1 T/CUMM (4-12)
[2019-07-30 13:12] LABS: Albumin 2.5 G/DL (3.4-5.0); Bilirubin,Total 1.6 MG/DL (0.2-1.0); Calcium 8.3 MG/DL (8.5-10.1); Osmolality,Calculated 281.3 MOS/KG (273-304); Total Protein 6.4 G/DL (6.4-8.3)
[2019-07-30] MEDS: GABAPENTIN 600 MG TABLET PO SCH ×3 (14:29→20:14)
[2019-07-30] MEDS: OSELTAMIVIR 75 MG CAPSULE PO SCH ×2 (14:29→20:13)
[2019-07-30] MEDS: busPIRone 10 MG TABLET PO SCH ×2 (14:30→20:14)
[2019-07-30] MEDS: ALBUTEROL/IPRATROPIUM 3 ML NEB RESP TX SCH ×3 (14:44→23:35)
[2019-07-30] MEDS: cefTRIAXone 1,000 MG in SYRINGE 1 EACH IV SCH (15:55)
[2019-07-30] MEDS: SODIUM CHLORIDE 0.9% 1,000 ML IV SCH ×2 (15:56→19:54)
[2019-07-30] MEDS: MORPHINE 4 MG/1 ML VIAL IV PRN (19:51)
[2019-07-30] MEDS: BUDESONIDE/FORMOTEROL 160-4.5 INHALER 6 GM INH SCH (20:14)
[2019-07-30] MEDS: DOCUSATE SODIUM 100 MG CAPSULE PO SCH (20:14)
[2019-07-30] MEDS: ONDANSETRON 4 MG/2 ML VIAL IV PRN (20:20)
[2019-07-30] MEDS: methylPREDNISolone SOD SUC 40 MG/1 ML VIAL IV SCH (23:51)
[2019-07-31] MEDS: MORPHINE 4 MG/1 ML VIAL IV PRN ×4 (00:21→16:34)
[2019-07-31] MEDS: ONDANSETRON 4 MG/2 ML VIAL IV PRN ×3 (02:45→20:22)
[2019-07-31] MEDS: ALBUTEROL/IPRATROPIUM 3 ML NEB RESP TX SCH ×6 (03:10→23:37)
[2019-07-31] MEDS: SODIUM CHLORIDE 0.9% 1,000 ML IV SCH (04:34)
[2019-07-31 05:05] LABS: Apearance,Urine CLEAR (Clear); Bacteria,Urine Occasional /HPF (Few); Bilirubin,Urine Negative (Negative); Blood, Urine Negative (Negative); Glucose,Urine (UA) >=500 mg/dL (Negative); Ketones,Urine Negative (Negative); Mucus,Urine Occasional /LPF (Occasional); Nitrite,Urine Negative (Negative); Protein,Urine Negative; RBC,Urine 2 /HPF (0-4); Squamous Epithelial Cell,Urine Occasional /HPF (0-10); Urine Color Yellow (Yellow); Urine Specific Gravity 1.017 (1.001-1.035); WBC,Urine <1 /HPF (0-6)
[2019-07-31 05:39] LABS: Basophils % 0.2 % (0.0-0.8); Hematocrit 35.6 VOL% (35.7-47.0); Hemoglobin 10.9 GM/DL (12.0-16.0); Immature Granulocytes % 1.5 %; Immature Granulocytes Absolute 0.08 #; Lymphocytes # 0.5 10*3/uL (1.4-4.0); Lymphocytes % 8.8 % (21.3-54.2); Mean Corpuscular HGB Conc 30.6 GM/DL (32-36); Mean Corpuscular Volume 94.2 FL (87-102); Mean Platelet Volume 11.1 FL (9.6-12.0); Monocytes % 2.2 % (1.7-12.7); Neutrophils % 87.3 % (38.7-73.9); Platelet Count 221 T/CUMM (130-400); Red Blood Count 3.78 MC/CUMM (3.8-5.5); Red Cell Distribution Width 13.7 % (9.3-17.3); White Blood Count 5.4 T/CUMM (4-12)
[2019-07-31 06:02] LABS: Calcium 8.2 MG/DL (8.5-10.1); Osmolality,Calculated 293.1 MOS/KG (273-304)
[2019-07-31] MEDS ORDERED: DEXTROSE 50% 25 GM/50 ML VIAL IV PRN (09:05)
[2019-07-31] MEDS ORDERED: GLUCAGON 1 MG VIAL IM PRN (09:05)
[2019-07-31] MEDS ORDERED: DEXTROSE 10% 250 ML BAG IV PRN (09:07)
[2019-07-31] MEDS: guaiFENesin/CODEINE 5 ML LIQUID PO PRN ×3 (09:53→20:22)
[2019-07-31] MEDS: busPIRone 10 MG TABLET PO SCH ×3 (09:55→20:21)
[2019-07-31] MEDS: DOCUSATE SODIUM 100 MG CAPSULE PO SCH ×2 (09:55→20:22)
[2019-07-31] MEDS: GABAPENTIN 600 MG TABLET PO SCH ×4 (09:55→20:22)
[2019-07-31] MEDS: BUDESONIDE/FORMOTEROL 160-4.5 INHALER 6 GM INH SCH ×2 (09:55→20:28)
[2019-07-31] MEDS: OSELTAMIVIR 75 MG CAPSULE PO SCH ×2 (09:55→20:22)
[2019-07-31] MEDS: ASPIRIN CHEW 81 MG TABLET PO SCH (09:56)
[2019-07-31] MEDS: methylPREDNISolone SOD SUC 40 MG/1 ML VIAL IV SCH ×2 (12:03→16:33)
[2019-07-31] MEDS: INSULIN LISPRO 100 UNIT/ML SUBCUT SCH ×3 (12:04→21:39)
[2019-07-31] MEDS: cefTRIAXone 1,000 MG in SYRINGE 1 EACH IV SCH (12:04)
[2019-07-31] MEDS: PANTOPRAZOLE 40 MG VIAL IV SCH (12:04)
[2019-07-31] MEDS: BENZOCAINE/MENTHOL LOZENGE 18/BOX PO PRN (14:27)
[2019-08-01] MEDS: MORPHINE 4 MG/1 ML VIAL IV PRN ×4 (00:16→22:49)
[2019-08-01] MEDS: methylPREDNISolone SOD SUC 40 MG/1 ML VIAL IV SCH ×3 (00:19→16:18)
[2019-08-01] MEDS: guaiFENesin/CODEINE 5 ML LIQUID PO PRN ×4 (02:51→21:30)
[2019-08-01] MEDS: ALBUTEROL/IPRATROPIUM 3 ML NEB RESP TX SCH ×6 (03:24→23:52)
[2019-08-01] MEDS: BENZOCAINE/MENTHOL LOZENGE 18/BOX PO PRN ×3 (06:25→23:15)
[2019-08-01] MEDS: POLYETHYLENE GLYCOL POWDER 17 GM PACK PO PRN (09:31)
[2019-08-01] MEDS: GABAPENTIN 600 MG TABLET PO SCH ×4 (09:32→20:30)
[2019-08-01] MEDS: BUDESONIDE/FORMOTEROL 160-4.5 INHALER 6 GM INH SCH ×2 (09:32→20:36)
[2019-08-01] MEDS: DOCUSATE SODIUM 100 MG CAPSULE PO SCH ×2 (09:32→20:30)
[2019-08-01] MEDS: OSELTAMIVIR 75 MG CAPSULE PO SCH ×2 (09:32→20:30)
[2019-08-01] MEDS: busPIRone 10 MG TABLET PO SCH ×3 (09:32→20:30)
[2019-08-01] MEDS: ASPIRIN CHEW 81 MG TABLET PO SCH (09:32)
[2019-08-01] MEDS: INSULIN LISPRO 100 UNIT/ML SUBCUT SCH ×4 (09:33→20:30)
[2019-08-01] MEDS: PANTOPRAZOLE 40 MG VIAL IV SCH (09:44)
[2019-08-01 10:18] LABS: Basophils # 0.1 10*3/uL (0.0-0.2); Basophils % 0.5 % (0.0-0.8); Hematocrit 35.5 VOL% (35.7-47.0); Hemoglobin 10.7 GM/DL (12.0-16.0); Immature Granulocytes % 4.8 %; Immature Granulocytes Absolute 0.49 #; Lymphocytes # 1.5 10*3/uL (1.4-4.0); Lymphocytes % 14.2 % (21.3-54.2); Mean Corpuscular HGB Conc 30.1 GM/DL (32-36); Mean Corpuscular Volume 95.7 FL (87-102); Mean Platelet Volume 10.4 FL (9.6-12.0); Monocytes % 6.7 % (1.7-12.7); NRBC # 0.02 10*3/uL; Neutrophils % 73.8 % (38.7-73.9); Platelet Count 272 T/CUMM (130-400); Red Blood Count 3.71 MC/CUMM (3.8-5.5); Red Cell Distribution Width 14.1 % (9.3-17.3); White Blood Count 10.3 T/CUMM (4-12)
[2019-08-01 10:38] LABS: Calcium 8.5 MG/DL (8.5-10.1); Osmolality,Calculated 289.1 MOS/KG (273-304)
[2019-08-01] MEDS: cefTRIAXone 1,000 MG in SYRINGE 1 EACH IV SCH (11:51)
[2019-08-01] MEDS: ONDANSETRON 4 MG/2 ML VIAL IV PRN (14:22)
[2019-08-02] MEDS: methylPREDNISolone SOD SUC 40 MG/1 ML VIAL IV SCH ×2 (00:05→09:42)
[2019-08-02] MEDS: MORPHINE 4 MG/1 ML VIAL IV PRN (03:00)
[2019-08-02] MEDS: BENZOCAINE/MENTHOL LOZENGE 18/BOX PO PRN (03:06)
[2019-08-02] MEDS: guaiFENesin/CODEINE 5 ML LIQUID PO PRN ×2 (03:06→09:40)
[2019-08-02] MEDS: ALBUTEROL/IPRATROPIUM 3 ML NEB RESP TX SCH ×3 (03:34→11:12)
[2019-08-02] MEDS ORDERED: PANTOPRAZOLE 40 MG TABLET PO SCH (09:00)
[2019-08-02] MEDS: POLYETHYLENE GLYCOL POWDER 17 GM PACK PO PRN (09:39)
[2019-08-02] MEDS: ASPIRIN CHEW 81 MG TABLET PO SCH (09:41)
[2019-08-02] MEDS: DOCUSATE SODIUM 100 MG CAPSULE PO SCH (09:41)
[2019-08-02] MEDS: GABAPENTIN 600 MG TABLET PO SCH (09:41)
[2019-08-02] MEDS: busPIRone 10 MG TABLET PO SCH (09:41)
[2019-08-02] MEDS: OSELTAMIVIR 75 MG CAPSULE PO SCH (09:41)
[2019-08-02] MEDS: INSULIN LISPRO 100 UNIT/ML SUBCUT SCH ×2 (09:42→12:10)
[2019-08-02] MEDS: BUDESONIDE/FORMOTEROL 160-4.5 INHALER 6 GM INH SCH (09:43)
[2019-08-02] MEDS: cefTRIAXone 1,000 MG in SYRINGE 1 EACH IV SCH (12:10)
[2019-08-02 12:23] VITALS: BP 148/78
[2019-08-02] MEDS ORDERED: HEPARIN LOCK FLUSH 500 UNIT/5 ML SYRINGE IV ONE (13:34)
== END 2019-08-02 14:15 | disposition home or self-care (01) | DRG 202 ==
LOC: N.5E
PROVIDERS: ADMIT Family Medicine; ATTEND Family Medicine

== ENCOUNTER 2019-09-04 12:25 | Observation (INO) ==
[2019-09-04] MEDS ORDERED: ALBUTEROL 0.63 MG/3 ML NEB RESP TX STA (13:10)
[2019-09-04] MEDS ORDERED: ONDANSETRON 4 MG/2 ML VIAL IV STA (14:08)
[2019-09-04] MEDS ORDERED: SODIUM CHLORIDE 0.9% 500 ML IV STA (14:08)
[2019-09-04 14:53] LABS: Basophils # 0.1 10*3/uL (0.0-0.2); Basophils % 0.8 % (0.0-0.8); Eosinophils # 0.2 10*3/uL (0.0-0.87); Eosinophils % 2.4 % (0.00-10.9); Hematocrit 46.4 VOL% (35.7-47.0); Hemoglobin 14.5 GM/DL (12.0-16.0); Immature Granulocytes % 0.7 %; Immature Granulocytes Absolute 0.05 #; Lymphocytes # 1.8 10*3/uL (1.4-4.0); Lymphocytes % 24.6 % (21.3-54.2); Mean Corpuscular HGB Conc 31.3 GM/DL (32-36); Mean Corpuscular Volume 91.7 FL (87-102); Mean Platelet Volume 10.8 FL (9.6-12.0); Monocytes % 7.8 % (1.7-12.7); Neutrophils % 63.7 % (38.7-73.9); Platelet Count 208 T/CUMM (130-400); Red Blood Count 5.06 MC/CUMM (3.8-5.5); Red Cell Distribution Width 14.8 % (9.3-17.3); White Blood Count 7.2 T/CUMM (4-12)
[2019-09-04 15:12] LABS: Calcium 8.6 MG/DL (8.5-10.1); Osmolality,Calculated 280.1 MOS/KG (273-304)
[2019-09-04] MEDS ORDERED: POTASSIUM CHLORIDE 20 MEQ TABLET PO STA (16:10)
[2019-09-04] MEDS ORDERED: ONDANSETRON 4 MG/2 ML VIAL IV PRN (16:12)
[2019-09-04] MEDS: ACETAMINOPHEN 325 MG TABLET PO PRN (16:38)
[2019-09-04] MEDS: SODIUM CHLORIDE 0.9% 1,000 ML IV SCH (18:14)
[2019-09-04] MEDS ORDERED: hydrALAZINE 20 MG/1 ML VIAL IV PRN (18:28)
[2019-09-04] MEDS ORDERED: ALBUTEROL/IPRATROPIUM 3 ML NEB RESP TX PRN (18:35)
[2019-09-04] MEDS ORDERED: POTASSIUM CHLORIDE RIDER 10 MEQ in PREMIX 1 EACH IV PRN (18:36)
[2019-09-04] MEDS ORDERED: MAGNESIUM SULF RIDER 2 GM in PREMIX 1 EACH IV PRN (18:36)
[2019-09-04] MEDS ORDERED: MAGNESIUM SULF RIDER 4 GM in PREMIX 1 EACH IV PRN (18:36)
[2019-09-04] MEDS ORDERED: PROMETHAZINE 25 MG/1 ML VIAL IM PRN (18:40)
[2019-09-04] MEDS: ALBUTEROL/IPRATROPIUM 3 ML NEB RESP TX SCH ×2 (20:25→23:18)
[2019-09-04] MEDS: cefTRIAXone 1,000 MG in SYRINGE 1 EACH IV SCH (20:38)
[2019-09-04] MEDS: methylPREDNISolone SOD SUC 40 MG/1 ML VIAL IV SCH (20:41)
[2019-09-04] MEDS: busPIRone 10 MG TABLET PO SCH (20:45)
[2019-09-04] MEDS: GABAPENTIN 600 MG TABLET PO SCH (20:45)
[2019-09-04] MEDS: BUDESONIDE/FORMOTEROL 160-4.5 INHALER 6 GM INH SCH (20:46)
[2019-09-04] MEDS: DOCUSATE SODIUM 100 MG CAPSULE PO SCH (20:47)
[2019-09-04] MEDS: ALBUTEROL 2.5 MG/3 ML NEB RESP TX SCH (21:54)
[2019-09-05] MEDS: ACETAMINOPHEN 325 MG TABLET PO PRN ×2 (01:21→13:00)
[2019-09-05] MEDS: SODIUM CHLORIDE 0.9% 1,000 ML IV SCH ×2 (02:30→12:57)
[2019-09-05] MEDS: ALBUTEROL/IPRATROPIUM 3 ML NEB RESP TX SCH ×6 (03:21→23:45)
[2019-09-05 05:31] LABS: Calcium 8.4 MG/DL (8.5-10.1)
[2019-09-05] MEDS: MORPHINE 4 MG/1 ML VIAL IV PRN ×3 (06:05→21:52)
[2019-09-05] MEDS: BUDESONIDE/FORMOTEROL 160-4.5 INHALER 6 GM INH SCH ×2 (09:07→21:41)
[2019-09-05] MEDS: POTASSIUM CHLORIDE 20 MEQ TABLET PO SCH (09:08)
[2019-09-05] MEDS: PANTOPRAZOLE 40 MG TABLET PO SCH (09:08)
[2019-09-05] MEDS: DOCUSATE SODIUM 100 MG CAPSULE PO SCH ×2 (09:09→21:40)
[2019-09-05] MEDS: methylPREDNISolone SOD SUC 40 MG/1 ML VIAL IV SCH ×2 (09:09→21:40)
[2019-09-05] MEDS: ASPIRIN CHEW 81 MG TABLET PO SCH (09:09)
[2019-09-05] MEDS: OLMESARTAN 20 MG TABLET PO SCH (09:09)
[2019-09-05] MEDS: busPIRone 10 MG TABLET PO SCH ×3 (09:09→21:40)
[2019-09-05] MEDS: hydroCHLOROthiazide 12.5 MG CAPSULE PO SCH (09:09)
[2019-09-05] MEDS: GABAPENTIN 600 MG TABLET PO SCH ×4 (09:09→21:40)
[2019-09-05] MEDS ORDERED: DEXTROSE 10% 250 ML BAG IV PRN (12:08)
[2019-09-05] MEDS ORDERED: GLUCAGON 1 MG VIAL IM PRN (12:08)
[2019-09-05] MEDS: INSULIN LISPRO 100 UNIT/ML SUBCUT SCH ×2 (16:42→21:42)
[2019-09-05] MEDS ORDERED: BUTALBITAL/ACETAMIN/CAFFEINE 50-325-40 MG TABLET PO PRN (18:31)
[2019-09-05] MEDS: cefTRIAXone 1,000 MG in SYRINGE 1 EACH IV SCH (21:41)
[2019-09-06] MEDS: SODIUM CHLORIDE 0.9% 1,000 ML IV SCH ×3 (00:06→10:32)
[2019-09-06] MEDS: MORPHINE 4 MG/1 ML VIAL IV PRN (02:27)
[2019-09-06] MEDS: ALBUTEROL/IPRATROPIUM 3 ML NEB RESP TX SCH ×2 (03:30→07:13)
[2019-09-06] MEDS: ALBUTEROL 2.5 MG/3 ML NEB RESP TX SCH (07:23)
[2019-09-06 08:07] VITALS: BP 130/55
[2019-09-06] MEDS ORDERED: FUROSEMIDE 20 MG TABLET PO SCH (09:00)
[2019-09-06] MEDS: DOCUSATE SODIUM 100 MG CAPSULE PO SCH (09:38)
[2019-09-06] MEDS: methylPREDNISolone SOD SUC 40 MG/1 ML VIAL IV SCH (09:38)
[2019-09-06] MEDS: PANTOPRAZOLE 40 MG TABLET PO SCH (09:38)
[2019-09-06] MEDS: INSULIN LISPRO 100 UNIT/ML SUBCUT SCH (09:38)
[2019-09-06] MEDS: POTASSIUM CHLORIDE 20 MEQ TABLET PO SCH (09:39)
[2019-09-06] MEDS: GABAPENTIN 600 MG TABLET PO SCH (09:39)
[2019-09-06] MEDS: ASPIRIN CHEW 81 MG TABLET PO SCH (09:40)
[2019-09-06] MEDS: busPIRone 10 MG TABLET PO SCH (09:40)
[2019-09-06] MEDS: BUDESONIDE/FORMOTEROL 160-4.5 INHALER 6 GM INH SCH (09:40)
[2019-09-06] MEDS: OLMESARTAN 20 MG TABLET PO SCH (09:40)
[2019-09-06] MEDS: hydroCHLOROthiazide 12.5 MG CAPSULE PO SCH (09:40)
== END 2019-09-06 10:32 | disposition home or self-care (01) ==
LOC: N.EDINP 12:25 → N.ED 12:25 → N.EDINP 17:28 → N.2W 17:47 → N.2E 09-05 14:27
PROVIDERS: ADMIT Family Medicine; ATTEND Family Medicine

== ENCOUNTER 2020-02-12 09:17 | Observation (INO) ==
[2020-02-12 09:45] LABS: Basophils # 0.1 10*3/uL (0.0-0.2); Basophils % 0.8 % (0.0-0.8); Eosinophils # 0.2 10*3/uL (0.0-0.87); Hematocrit 44.2 VOL% (35.7-47.0); Immature Granulocytes % 0.7 %; Immature Granulocytes Absolute 0.05 #; Lymphocytes # 1.8 10*3/uL (1.4-4.0); Lymphocytes % 24.4 % (21.3-54.2); Mean Corpuscular HGB Conc 31.7 GM/DL (32-36); Mean Corpuscular Volume 91.7 FL (87-102); Mean Platelet Volume 11.1 FL (9.6-12.0); Monocytes % 7.2 % (1.7-12.7); Neutrophils % 63.9 % (38.7-73.9); Platelet Count 214 T/CUMM (130-400); Red Blood Count 4.82 MC/CUMM (3.8-5.5); Red Cell Distribution Width 15.3 % (9.3-17.3); White Blood Count 7.5 T/CUMM (4-12)
[2020-02-12 10:01] LABS: Albumin 3.8 G/DL (3.4-5.0); Bilirubin,Total 0.8 MG/DL (0.2-1.0); Calcium 9.2 MG/DL (8.5-10.1); Total Protein 6.9 G/DL (6.4-8.3)
[2020-02-12] MEDS ORDERED: ENOXAPARIN 100 MG/ML SYRINGE SUBCUT STA (10:11)
[2020-02-12] MEDS ORDERED: ASPIRIN 325 MG TABLET PO STA (10:11)
[2020-02-12] MEDS ORDERED: ACETAMINOPHEN 325 MG TABLET PO PRN (10:13)
[2020-02-12] MEDS ORDERED: DEXTROSE 50% 25 GM/50 ML VIAL IV PRN (10:13)
[2020-02-12] MEDS ORDERED: GLUCAGON 1 MG VIAL IM PRN (10:13)
[2020-02-12] MEDS ORDERED: ENOXAPARIN 120 MG/0.8 ML SYRINGE SUBCUT ONE (10:16)
[2020-02-12] MEDS: NITROGLYCERIN SL 0.4 MG TABLET SL PRN ×2 (10:47→11:00)
[2020-02-12] MEDS ORDERED: ENOXAPARIN 120 MG/0.8 ML SYRINGE SUBCUT STA (10:51)
[2020-02-12] MEDS: ONDANSETRON 4 MG/2 ML VIAL IV PRN (12:00)
[2020-02-12] MEDS ORDERED: ASPIRIN CHEW 81 MG TABLET PO PRN (13:27)
[2020-02-12] MEDS: MORPHINE 4 MG/1 ML VIAL IV PRN ×2 (13:31→22:11)
[2020-02-12] MEDS ORDERED: PROMETHAZINE INJ 12.5 MG in SODIUM CHLORIDE 0.9% 50 ML IV PRN (16:25)
[2020-02-12] MEDS ORDERED: SODIUM CHLORIDE 0.9% 1,000 ML IV SCH (16:30)
[2020-02-12] MEDS: GABAPENTIN 600 MG TABLET PO SCH ×2 (17:02→21:32)
[2020-02-12 19:53] LABS: Apearance,Urine CLOUDY (Clear); Blood, Urine Negative (Negative); Glucose,Urine (UA) Negative (Negative); Hyaline Casts,Urine 119 /LPF (0-3); Ketones,Urine Negative (Negative); Mucus,Urine Many /LPF (Occasional); Nitrite,Urine Negative (Negative); Protein,Urine 30 MG/DL; Squamous Epithelial Cell,Urine Few /HPF (0-10); Urine Color Amber (Yellow); Urine Specific Gravity 1.026 (1.001-1.035); WBC,Urine 11 /HPF (0-6)
[2020-02-12 19:54] LABS: Bilirubin,Urine Small mg/dL (Negative)
[2020-02-12] MEDS ORDERED: PRAMIPEXOLE 1 MG TABLET PO SCH (21:00)
[2020-02-12] MEDS: tiZANidine 4 MG TABLET PO SCH (21:32)
[2020-02-12] MEDS: BUDESONIDE/FORMOTEROL 160-4.5 INHALER 6 GM INH SCH (21:32)
[2020-02-12] MEDS: DOCUSATE SODIUM 100 MG CAPSULE PO SCH ×2 (21:32→21:37)
[2020-02-13 06:44] LABS: Risk Ratio 4.92; VLDL CHOLESTEROL 26.4 MG/DL
[2020-02-13] MEDS: ALBUTEROL 2.5 MG/3 ML NEB RESP TX SCH ×2 (07:01→09:59)
[2020-02-13 07:44] VITALS: BP 137/65
[2020-02-13] MEDS ORDERED: ASPIRIN CHEW 81 MG TABLET PO SCH (09:00)
[2020-02-13] MEDS ORDERED: PANTOPRAZOLE 40 MG TABLET PO SCH (09:00)
[2020-02-13] MEDS: ONDANSETRON 4 MG/2 ML VIAL IV PRN (10:45)
[2020-02-13] MEDS: DOCUSATE SODIUM 100 MG CAPSULE PO SCH (12:56)
[2020-02-13] MEDS: GABAPENTIN 600 MG TABLET PO SCH (12:56)
[2020-02-13] MEDS: BUDESONIDE/FORMOTEROL 160-4.5 INHALER 6 GM INH SCH (12:57)
[2020-02-13] MEDS: tiZANidine 4 MG TABLET PO SCH (12:57)
[2020-02-14] MEDS ORDERED: FUROSEMIDE 20 MG TABLET PO SCH (09:00)
== END 2020-02-13 12:45 | disposition home or self-care (01) ==
LOC: N.ED 09:17 → N.EDINP 09:17 → N.TELES 15:31
PROVIDERS: ADMIT Family Medicine; ATTEND Family Medicine

== ENCOUNTER 2020-05-03 15:09 | Inpatient (IN) ==
[2020-05-03] MEDS ORDERED: MAGNESIUM SULF RIDER 2 GM in PREMIX 1 EACH IV STA (15:27)
[2020-05-03] MEDS ORDERED: methylPREDNISolone SOD SUC 125 MG/2 ML VIAL IV STA (15:27)
[2020-05-03] MEDS ORDERED: ALBUTEROL NEB SOLN 5 MG/ML 20 ML/BOTTLE CONT NEB SCH (15:30)
[2020-05-03 15:58] LABS: Basophils % 0.3 % (0.0-0.8); Eosinophils % 0.3 % (0.00-10.9); Hematocrit 40.2 VOL% (35.7-47.0); Hemoglobin 13.2 GM/DL (12.0-16.0); Immature Granulocytes % 0.9 %; Immature Granulocytes Absolute 0.08 #; Lymphocytes # 0.6 10*3/uL (1.4-4.0); Lymphocytes % 6.8 % (21.3-54.2); Mean Corpuscular HGB Conc 32.8 GM/DL (32-36); Mean Corpuscular Volume 90.1 FL (87-102); Mean Platelet Volume 10.9 FL (9.6-12.0); Monocytes % 1.3 % (1.7-12.7); Neutrophils % 90.4 % (38.7-73.9); Platelet Count 220 T/CUMM (130-400); Red Blood Count 4.46 MC/CUMM (3.8-5.5); Red Cell Distribution Width 14.4 % (9.3-17.3); White Blood Count 8.6 T/CUMM (4-12)
[2020-05-03 16:25] LABS: Albumin 3.5 G/DL (3.4-5.0); Bilirubin,Total 0.4 MG/DL (0.2-1.0); Osmolality,Calculated 283.4 MOS/KG (273-304); Total Protein 6.7 G/DL (6.4-8.3)
[2020-05-03] MEDS ORDERED: ALBUTEROL 2.5 MG/3 ML NEB RESP TX PRN (18:56)
[2020-05-03] MEDS ORDERED: ENOXAPARIN 40 MG/0.4 ML SYRINGE SUBCUT STA (18:56)
[2020-05-03] MEDS ORDERED: PROMETHAZINE 25 MG TABLET PO PRN (18:56)
[2020-05-03] MEDS ORDERED: DEXTROSE 50% 25 GM/50 ML VIAL IV PRN (18:56)
[2020-05-03] MEDS ORDERED: ACETAMINOPHEN 325 MG TABLET PO PRN (18:56)
[2020-05-03] MEDS ORDERED: GLUCAGON 1 MG VIAL IM PRN (18:56)
[2020-05-03] MEDS ORDERED: MAGNESIUM SULF RIDER 4 GM in PREMIX 1 EACH IV PRN (18:56)
[2020-05-03] MEDS ORDERED: SODIUM CHLORIDE 0.9% 1,000 ML IV SCH (18:56)
[2020-05-03] MEDS ORDERED: POTASSIUM CHLORIDE RIDER 10 MEQ in PREMIX 1 EACH IV PRN (18:56)
[2020-05-03] MEDS ORDERED: MAGNESIUM SULF RIDER 2 GM in PREMIX 1 EACH IV PRN (18:56)
[2020-05-03] MEDS ORDERED: KETOROLAC 30 MG/1 ML VIAL IV ONE (20:12)
[2020-05-03] MEDS: ALBUTEROL/IPRATROPIUM 3 ML NEB RESP TX SCH ×2 (20:27→23:32)
[2020-05-03] MEDS: PRAMIPEXOLE 1 MG TABLET PO SCH (20:38)
[2020-05-03] MEDS: GABAPENTIN 600 MG TABLET PO SCH (20:38)
[2020-05-03] MEDS: DOCUSATE SODIUM 100 MG CAPSULE PO SCH (20:38)
[2020-05-03] MEDS: tiZANidine 4 MG TABLET PO SCH (20:38)
[2020-05-03] MEDS: BUDESONIDE/FORMOTEROL 160-4.5 INHALER 6 GM INH SCH (20:40)
[2020-05-03] MEDS ORDERED: NON-FORMULARY MEDICATION (Albuterol Sulfate [Ventolin Hfa] 90 MCG/PUFF HFA aerosol inhaler INH SCH (21:00)
[2020-05-03] MEDS: methylPREDNISolone SOD SUC 125 MG/2 ML VIAL IV SCH (22:03)
[2020-05-03] MEDS: INSULIN REGULAR 100 UNIT/ML SUBCUT SCH (22:06)
[2020-05-04] MEDS: ALBUTEROL/IPRATROPIUM 3 ML NEB RESP TX SCH ×6 (03:32→23:00)
[2020-05-04] MEDS: methylPREDNISolone SOD SUC 125 MG/2 ML VIAL IV SCH ×4 (04:21→21:41)
[2020-05-04] MEDS: ONDANSETRON 4 MG/2 ML VIAL IV PRN ×2 (04:22→12:30)
[2020-05-04] MEDS ORDERED: AZITHROMYCIN INJ 500 MG in SODIUM CHLORIDE 0.9% 250 ML IV SCH (09:00)
[2020-05-04] MEDS ORDERED: DEXTROSE 50% 25 GM/50 ML VIAL IV PRN (09:33)
[2020-05-04] MEDS: PANTOPRAZOLE 40 MG TABLET PO SCH (09:56)
[2020-05-04] MEDS: tiZANidine 4 MG TABLET PO SCH ×2 (09:56→21:44)
[2020-05-04] MEDS: ASPIRIN CHEW 81 MG TABLET PO SCH (09:56)
[2020-05-04] MEDS: DOCUSATE SODIUM 100 MG CAPSULE PO SCH ×2 (09:56→21:44)
[2020-05-04] MEDS: GABAPENTIN 600 MG TABLET PO SCH ×4 (09:56→21:44)
[2020-05-04] MEDS: POTASSIUM CHLORIDE 20 MEQ TABLET PO SCH (09:57)
[2020-05-04] MEDS: cefTRIAXone 1,000 MG in SYRINGE 1 EACH IV SCH (09:57)
[2020-05-04] MEDS: INSULIN REGULAR 100 UNIT/ML SUBCUT SCH ×4 (09:58→21:42)
[2020-05-04] MEDS: BUDESONIDE/FORMOTEROL 160-4.5 INHALER 6 GM INH SCH ×2 (09:59→21:43)
[2020-05-04] MEDS: PRAMIPEXOLE 1 MG TABLET PO SCH ×2 (10:02→21:44)
[2020-05-04] MEDS: MORPHINE 4 MG/1 ML VIAL IV PRN ×2 (15:53→21:40)
[2020-05-05] MEDS: ALBUTEROL/IPRATROPIUM 3 ML NEB RESP TX SCH ×6 (04:00→23:43)
[2020-05-05] MEDS: methylPREDNISolone SOD SUC 125 MG/2 ML VIAL IV SCH ×5 (04:04→21:18)
[2020-05-05] MEDS: ONDANSETRON 4 MG/2 ML VIAL IV PRN ×2 (04:05→11:48)
[2020-05-05] MEDS: MORPHINE 4 MG/1 ML VIAL IV PRN ×3 (06:10→22:16)
[2020-05-05] MEDS: POTASSIUM CHLORIDE 20 MEQ TABLET PO SCH (09:01)
[2020-05-05] MEDS: PRAMIPEXOLE 1 MG TABLET PO SCH ×2 (09:02→21:17)
[2020-05-05] MEDS: tiZANidine 4 MG TABLET PO SCH ×2 (09:03→21:18)
[2020-05-05] MEDS: DOCUSATE SODIUM 100 MG CAPSULE PO SCH ×2 (09:03→21:18)
[2020-05-05] MEDS: PANTOPRAZOLE 40 MG TABLET PO SCH (09:03)
[2020-05-05] MEDS: ASPIRIN CHEW 81 MG TABLET PO SCH (09:03)
[2020-05-05] MEDS: GABAPENTIN 600 MG TABLET PO SCH ×4 (09:03→21:18)
[2020-05-05] MEDS: BUDESONIDE/FORMOTEROL 160-4.5 INHALER 6 GM INH SCH ×2 (09:04→21:22)
[2020-05-05] MEDS: cefTRIAXone 1,000 MG in SYRINGE 1 EACH IV SCH (09:04)
[2020-05-05] MEDS: INSULIN REGULAR 100 UNIT/ML SUBCUT SCH ×4 (09:05→21:18)
[2020-05-05] MEDS ORDERED: SILVER NITRATE STICK 1 EACH TOP ONE (12:30)
[2020-05-06] MEDS: ALBUTEROL/IPRATROPIUM 3 ML NEB RESP TX SCH ×2 (03:00→08:04)
[2020-05-06] MEDS: MORPHINE 4 MG/1 ML VIAL IV PRN ×2 (03:51→09:28)
[2020-05-06] MEDS: methylPREDNISolone SOD SUC 125 MG/2 ML VIAL IV SCH (03:54)
[2020-05-06 04:52] LABS: Basophils % 0.1 % (0.0-0.8); Hematocrit 38.3 VOL% (35.7-47.0); Hemoglobin 11.8 GM/DL (12.0-16.0); Immature Granulocytes Absolute 0.29 #; Lymphocytes # 1.2 10*3/uL (1.4-4.0); Lymphocytes % 7.9 % (21.3-54.2); Mean Corpuscular HGB Conc 30.8 GM/DL (32-36); Mean Platelet Volume 11.1 FL (9.6-12.0); Monocytes % 2.7 % (1.7-12.7); Neutrophils % 87.3 % (38.7-73.9); Platelet Count 230 T/CUMM (130-400); Red Blood Count 4.03 MC/CUMM (3.8-5.5); Red Cell Distribution Width 14.6 % (9.3-17.3); White Blood Count 14.6 T/CUMM (4-12)
[2020-05-06 05:23] LABS: Alanine Aminotransferase 38 U/L (13-56); Albumin 3.2 G/DL (3.4-5.0); Alkaline Phosphatase 94 U/L (45-117); Aspartate Amino Transferase 17 U/L (0-37); Bilirubin,Total < 0.39 MG/DL (0.2-1.0); Blood Urea Nitrogen 37 MG/DL (7-18); Calcium 8.5 MG/DL (8.5-10.1); Estimated Glom Filtration Rate 75 ML/MIN; Glucose 191 MG/DL (74-106); Osmolality,Calculated 288.7 MOS/KG (273-304); Total Protein 6.6 G/DL (6.4-8.3)
[2020-05-06] MEDS: ONDANSETRON 4 MG/2 ML VIAL IV PRN (06:16)
[2020-05-06] MEDS: INSULIN REGULAR 100 UNIT/ML SUBCUT SCH ×2 (07:52→12:24)
[2020-05-06] MEDS: ASPIRIN CHEW 81 MG TABLET PO SCH (09:13)
[2020-05-06] MEDS: PRAMIPEXOLE 1 MG TABLET PO SCH (09:13)
[2020-05-06] MEDS: DOCUSATE SODIUM 100 MG CAPSULE PO SCH (09:13)
[2020-05-06] MEDS: PANTOPRAZOLE 40 MG TABLET PO SCH (09:14)
[2020-05-06] MEDS: tiZANidine 4 MG TABLET PO SCH (09:14)
[2020-05-06] MEDS: cefTRIAXone 1,000 MG in SYRINGE 1 EACH IV SCH (09:14)
[2020-05-06] MEDS: POTASSIUM CHLORIDE 20 MEQ TABLET PO SCH (09:14)
[2020-05-06] MEDS: GABAPENTIN 600 MG TABLET PO SCH (09:14)
[2020-05-06] MEDS: BUDESONIDE/FORMOTEROL 160-4.5 INHALER 6 GM INH SCH (09:25)
[2020-05-06 11:48] VITALS: BP 108/64
[2020-05-06] MEDS ORDERED: methylPREDNISolone SOD SUC 40 MG/1 ML VIAL IV SCH (15:00)
== END 2020-05-06 12:34 | disposition home health service (06) | DRG 190 ==
LOC: N.ED 15:09 → N.EDINP 15:47 → N.5E 18:11
PROVIDERS: ADMIT Family Medicine; ATTEND Family Medicine

== ENCOUNTER 2020-05-10 13:30 | Inpatient (IN) ==
[2020-05-10 17:37] LABS: Albumin 3.4 G/DL (3.4-5.0); Bilirubin,Total 0.6 MG/DL (0.2-1.0); Calcium 8.7 MG/DL (8.5-10.1); Osmolality,Calculated 283.3 MOS/KG (273-304); Potassium 3.8 MMOL/L (3.5-5.1); Total Protein 6.8 G/DL (6.4-8.3)
[2020-05-10] MEDS ORDERED: ACETAMINOPHEN 325 MG TABLET PO PRN (17:40)
[2020-05-10] MEDS ORDERED: cefTRIAXone 1,000 MG in SODIUM CHLORIDE 0.9% 100 ML IV STA (17:40)
[2020-05-10] MEDS: LACTATED RINGERS 1,000 ML IV SCH (18:22)
[2020-05-10] MEDS: BUDESONIDE/FORMOTEROL 160-4.5 INHALER 6 GM INH SCH (20:51)
[2020-05-10] MEDS: metFORMIN 500 MG TABLET PO SCH (20:52)
[2020-05-10] MEDS: GABAPENTIN 600 MG TABLET PO SCH (20:52)
[2020-05-10] MEDS: PRAMIPEXOLE 1 MG TABLET PO SCH (20:52)
[2020-05-10] MEDS: DOCUSATE SODIUM 100 MG CAPSULE PO SCH (20:52)
[2020-05-10] MEDS: PANTOPRAZOLE 40 MG TABLET PO SCH (20:52)
[2020-05-10] MEDS: MEROPENEM 1,000 MG in SODIUM CHLORIDE 0.9% 100 ML IV SCH (23:30)
[2020-05-11] MEDS: MEROPENEM 1,000 MG in SODIUM CHLORIDE 0.9% 100 ML IV SCH (06:04)
[2020-05-11] MEDS ORDERED: OLMESARTAN 5 MG TABLET PO SCH (09:00)
[2020-05-11] MEDS ORDERED: PANTOPRAZOLE 40 MG TABLET PO SCH (09:00)
[2020-05-11] MEDS: PRAMIPEXOLE 1 MG TABLET PO SCH ×2 (09:19→20:14)
[2020-05-11] MEDS: GABAPENTIN 600 MG TABLET PO SCH ×4 (09:20→20:15)
[2020-05-11] MEDS: PANTOPRAZOLE 40 MG TABLET PO SCH ×2 (09:20→20:15)
[2020-05-11] MEDS: DOCUSATE SODIUM 100 MG CAPSULE PO SCH ×2 (09:20→20:15)
[2020-05-11] MEDS: BUDESONIDE/FORMOTEROL 160-4.5 INHALER 6 GM INH SCH ×2 (09:20→20:16)
[2020-05-11] MEDS: ASPIRIN CHEW 81 MG TABLET PO SCH (09:20)
[2020-05-11] MEDS: metFORMIN 500 MG TABLET PO SCH (09:20)
[2020-05-11] MEDS ORDERED: GLUCAGON 1 MG VIAL IM PRN (09:22)
[2020-05-11] MEDS ORDERED: DEXTROSE 50% 25 GM/50 ML VIAL IV PRN (09:22)
[2020-05-11] MEDS: ONDANSETRON 4 MG/2 ML VIAL IV PRN ×2 (09:32→18:25)
[2020-05-11] MEDS ORDERED: VANCOMYCIN INJ 2,000 MG in SODIUM CHLORIDE 0.9% 500 ML IV SCH (11:00)
[2020-05-11] MEDS: INSULIN LISPRO 100 UNIT/ML SUBCUT SCH ×3 (11:54→20:18)
[2020-05-11] MEDS: MORPHINE 4 MG/1 ML VIAL IV PRN ×2 (14:04→18:25)
[2020-05-11] MEDS ORDERED: guaiFENesin 200 MG/10 ML UDCUP PO PRN (14:35)
[2020-05-11] MEDS ORDERED: BENZONATATE 100 MG CAPSULE PO PRN (14:35)
[2020-05-11 14:53] LABS: Basophils % 0.3 % (0.0-0.8); Eosinophils # 0.2 10*3/uL (0.0-0.87); Eosinophils % 2.1 % (0.00-10.9); Hemoglobin 11.9 GM/DL (12.0-16.0); Immature Granulocytes % 1.8 %; Lymphocytes # 2.6 10*3/uL (1.4-4.0); Lymphocytes % 23.6 % (21.3-54.2); Mean Corpuscular HGB Conc 32.2 GM/DL (32-36); Mean Corpuscular Volume 91.6 FL (87-102); Mean Platelet Volume 10.7 FL (9.6-12.0); Monocytes % 6.4 % (1.7-12.7); Neutrophils % 65.8 % (38.7-73.9); Platelet Count 188 T/CUMM (130-400); Red Blood Count 4.04 MC/CUMM (3.8-5.5); Red Cell Distribution Width 14.6 % (9.3-17.3); White Blood Count 11.2 T/CUMM (4-12)
[2020-05-11] MEDS ORDERED: MEROPENEM 500 MG in SODIUM CHLORIDE 0.9% 100 ML IV SCH (15:00)
[2020-05-11] MEDS ORDERED: OLMESARTAN 5 MG TABLET PO ONE (15:00)
[2020-05-11 15:09] LABS: Calcium 7.9 MG/DL (8.5-10.1); Potassium 3.9 MMOL/L (3.5-5.1)
[2020-05-11] MEDS: GENTAMICIN INJ 80 MG in PREMIX 1 EACH IV SCH (16:31)
[2020-05-11] MEDS: diphenhydrAMINE CAP 25 MG CAPSULE PO PRN (18:06)
[2020-05-11] MEDS: LACTATED RINGERS 1,000 ML IV SCH (18:52)
[2020-05-12] MEDS: GENTAMICIN INJ 80 MG in PREMIX 1 EACH IV SCH ×2 (04:17→21:36)
[2020-05-12] MEDS: MORPHINE 4 MG/1 ML VIAL IV PRN ×4 (04:18→22:23)
[2020-05-12] MEDS: ONDANSETRON 4 MG/2 ML VIAL IV PRN ×2 (04:18→15:29)
[2020-05-12] MEDS ORDERED: fentaNYL 100 MCG/2 ML VIAL ONE (06:39)
[2020-05-12] MEDS ORDERED: MIDAZOLAM 2 MG/2 ML VIAL ONE (06:39)
[2020-05-12] MEDS ORDERED: propofoL 200 MG/20 ML VIAL IV ONE (06:39)
[2020-05-12] MEDS ORDERED: LIDOCAINE 2% 5 ML VIAL ONE (06:39)
[2020-05-12 06:45] LABS: Basophils # 0.1 10*3/uL (0.0-0.2); Basophils % 0.5 % (0.0-0.8); Eosinophils # 0.3 10*3/uL (0.0-0.87); Eosinophils % 2.5 % (0.00-10.9); Hematocrit 38.8 VOL% (35.7-47.0); Hemoglobin 12.1 GM/DL (12.0-16.0); Immature Granulocytes % 1.7 %; Immature Granulocytes Absolute 0.19 #; Lymphocytes % 17.9 % (21.3-54.2); Mean Corpuscular HGB Conc 31.2 GM/DL (32-36); Mean Corpuscular Volume 94.9 FL (87-102); Monocytes % 7.5 % (1.7-12.7); Neutrophils % 69.9 % (38.7-73.9); Platelet Count 200 T/CUMM (130-400); Red Blood Count 4.09 MC/CUMM (3.8-5.5); Red Cell Distribution Width 14.9 % (9.3-17.3)
[2020-05-12 06:47] LABS: Calcium 8.4 MG/DL (8.5-10.1); Potassium 4.2 MMOL/L (3.5-5.1)
[2020-05-12] MEDS ORDERED: BUPIVACAINE MPF 0.25% 30 ML VIAL ONE (06:50)
[2020-05-12] MEDS ORDERED: CLINDAMYCIN INJ 900 MG in PREMIX 1 EACH IV ONE (07:00)
[2020-05-12] MEDS: ASPIRIN CHEW 81 MG TABLET PO SCH (08:49)
[2020-05-12] MEDS: FUROSEMIDE 20 MG TABLET PO SCH ×2 (08:50→10:32)
[2020-05-12] MEDS: INSULIN LISPRO 100 UNIT/ML SUBCUT SCH ×4 (08:50→21:49)
[2020-05-12] MEDS: OLMESARTAN 20 MG TABLET PO SCH (08:50)
[2020-05-12] MEDS: DOCUSATE SODIUM 100 MG CAPSULE PO SCH ×2 (08:50→21:38)
[2020-05-12] MEDS: GABAPENTIN 600 MG TABLET PO SCH ×4 (08:50→21:37)
[2020-05-12] MEDS: PANTOPRAZOLE 40 MG TABLET PO SCH ×2 (08:50→21:38)
[2020-05-12] MEDS: PRAMIPEXOLE 1 MG TABLET PO SCH ×2 (08:50→21:37)
[2020-05-12] MEDS: BUDESONIDE/FORMOTEROL 160-4.5 INHALER 6 GM INH SCH ×2 (08:51→21:39)
[2020-05-13] MEDS: ALBUTEROL 2.5 MG/3 ML NEB RESP TX PRN (04:46)
[2020-05-13] MEDS: MORPHINE 4 MG/1 ML VIAL IV PRN ×3 (05:24→21:13)
[2020-05-13 05:39] LABS: Basophils # 0.1 10*3/uL (0.0-0.2); Basophils % 0.6 % (0.0-0.8); Calcium 8.4 MG/DL (8.5-10.1); Eosinophils # 0.3 10*3/uL (0.0-0.87); Eosinophils % 3.2 % (0.00-10.9); Hematocrit 39.4 VOL% (35.7-47.0); Hemoglobin 11.9 GM/DL (12.0-16.0); Lymphocytes # 1.9 10*3/uL (1.4-4.0); Lymphocytes % 18.6 % (21.3-54.2); Mean Corpuscular HGB Conc 30.2 GM/DL (32-36); Mean Corpuscular Volume 95.4 FL (87-102); Mean Platelet Volume 11.5 FL (9.6-12.0); Monocytes % 8.8 % (1.7-12.7); Neutrophils % 67.8 % (38.7-73.9); Osmolality,Calculated 279.5 MOS/KG (273-304); Platelet Count 182 T/CUMM (130-400); Potassium 3.9 MMOL/L (3.5-5.1); Red Blood Count 4.13 MC/CUMM (3.8-5.5); Red Cell Distribution Width 14.6 % (9.3-17.3)
[2020-05-13] MEDS: INSULIN LISPRO 100 UNIT/ML SUBCUT SCH ×4 (08:41→21:21)
[2020-05-13] MEDS: DOCUSATE SODIUM 100 MG CAPSULE PO SCH ×2 (08:42→21:19)
[2020-05-13] MEDS: ASPIRIN CHEW 81 MG TABLET PO SCH (08:42)
[2020-05-13] MEDS: PRAMIPEXOLE 1 MG TABLET PO SCH ×2 (08:42→21:19)
[2020-05-13] MEDS: GABAPENTIN 600 MG TABLET PO SCH ×4 (08:42→21:20)
[2020-05-13] MEDS: OLMESARTAN 20 MG TABLET PO SCH (08:42)
[2020-05-13] MEDS: BUDESONIDE/FORMOTEROL 160-4.5 INHALER 6 GM INH SCH ×2 (08:43→21:20)
[2020-05-13] MEDS: PANTOPRAZOLE 40 MG TABLET PO SCH ×2 (08:43→21:20)
[2020-05-13] MEDS: GENTAMICIN INJ 80 MG in PREMIX 1 EACH IV SCH ×2 (09:49→21:12)
[2020-05-13] MEDS: ALTEPLASE 2 MG VIAL IV ONE ×2 (12:00→14:43)
[2020-05-13] MEDS ORDERED: ALTEPLASE 2 MG VIAL ONE (12:20)
[2020-05-13] MEDS ORDERED: LIDOCAINE 100 MG/5 ML SYRINGE ONE (13:19)
[2020-05-13] MEDS ORDERED: SODIUM CHLORIDE 0.9% 1,000 ML IV SCH (13:30)
[2020-05-14] MEDS: MORPHINE 4 MG/1 ML VIAL IV PRN ×4 (04:05→21:35)
[2020-05-14] MEDS ORDERED: LACTATED RINGERS 1,000 ML IV SCH (08:00)
[2020-05-14] MEDS: INSULIN LISPRO 100 UNIT/ML SUBCUT SCH ×4 (08:44→21:34)
[2020-05-14] MEDS: OLMESARTAN 20 MG TABLET PO SCH ×2 (08:46→15:13)
[2020-05-14] MEDS: DOCUSATE SODIUM 100 MG CAPSULE PO SCH ×3 (08:46→21:34)
[2020-05-14] MEDS: GABAPENTIN 600 MG TABLET PO SCH ×5 (08:46→21:34)
[2020-05-14] MEDS: PRAMIPEXOLE 1 MG TABLET PO SCH ×3 (08:47→21:33)
[2020-05-14] MEDS: ASPIRIN CHEW 81 MG TABLET PO SCH ×2 (08:47→15:14)
[2020-05-14] MEDS: FUROSEMIDE 20 MG TABLET PO SCH ×2 (08:47→15:14)
[2020-05-14] MEDS: PANTOPRAZOLE 40 MG TABLET PO SCH ×3 (08:47→21:33)
[2020-05-14] MEDS: GENTAMICIN INJ 80 MG in PREMIX 1 EACH IV SCH ×2 (08:48→21:33)
[2020-05-14] MEDS ORDERED: SODIUM PHOSPHATE ENEMA 133 ML BOTTLE RECTAL ONE (10:00)
[2020-05-14] MEDS ORDERED: propofoL 200 MG/20 ML VIAL IV ONE (13:56)
[2020-05-14] MEDS ORDERED: LIDOCAINE 2% 5 ML VIAL ONE (13:56)
[2020-05-14] MEDS: BUDESONIDE/FORMOTEROL 160-4.5 INHALER 6 GM INH SCH ×2 (15:16→21:35)
[2020-05-14] MEDS: ONDANSETRON 4 MG/2 ML VIAL IV PRN (15:27)
[2020-05-14] MEDS: tiZANidine 4 MG TABLET PO SCH ×2 (15:27→21:35)
[2020-05-14] MEDS: diphenhydrAMINE CAP 25 MG CAPSULE PO PRN (21:44)
[2020-05-15] MEDS: MORPHINE 4 MG/1 ML VIAL IV PRN ×4 (05:52→21:41)
[2020-05-15] MEDS: INSULIN LISPRO 100 UNIT/ML SUBCUT SCH ×4 (08:09→21:25)
[2020-05-15] MEDS: OLMESARTAN 20 MG TABLET PO SCH (10:38)
[2020-05-15] MEDS: ASPIRIN CHEW 81 MG TABLET PO SCH (10:38)
[2020-05-15] MEDS: PANTOPRAZOLE 40 MG TABLET PO SCH ×2 (10:38→21:24)
[2020-05-15] MEDS: DOCUSATE SODIUM 100 MG CAPSULE PO SCH ×2 (10:39→21:24)
[2020-05-15] MEDS: tiZANidine 4 MG TABLET PO SCH (10:39)
[2020-05-15] MEDS: PRAMIPEXOLE 1 MG TABLET PO SCH ×2 (10:39→21:24)
[2020-05-15] MEDS: GABAPENTIN 600 MG TABLET PO SCH ×4 (10:39→21:23)
[2020-05-15] MEDS: ONDANSETRON 4 MG/2 ML VIAL IV PRN ×2 (10:39→21:26)
[2020-05-15] MEDS: BUDESONIDE/FORMOTEROL 160-4.5 INHALER 6 GM INH SCH ×2 (10:41→21:25)
[2020-05-15] MEDS: GENTAMICIN INJ 80 MG in PREMIX 1 EACH IV SCH ×2 (10:51→21:45)
[2020-05-15] MEDS: DEXTROSE 5% NACL 0.9% 1,000 ML IV SCH (17:07)
[2020-05-15] MEDS: ENOXAPARIN 40 MG/0.4 ML SYRINGE SUBCUT SCH (21:25)
[2020-05-16] MEDS: DEXTROSE 5% NACL 0.9% 1,000 ML IV SCH ×4 (01:31→21:31)
[2020-05-16 06:48] LABS: Basophils % 0.3 % (0.0-0.8); Eosinophils # 0.5 10*3/uL (0.0-0.87); Eosinophils % 4.9 % (0.00-10.9); Hematocrit 35.9 VOL% (35.7-47.0); Immature Granulocytes % 1.1 %; Lymphocytes # 1.3 10*3/uL (1.4-4.0); Lymphocytes % 13.7 % (21.3-54.2); Mean Corpuscular HGB Conc 30.6 GM/DL (32-36); Mean Platelet Volume 12.3 FL (9.6-12.0); Monocytes % 7.2 % (1.7-12.7); Neutrophils % 72.8 % (38.7-73.9); Platelet Count 139 T/CUMM (130-400); Red Blood Count 3.78 MC/CUMM (3.8-5.5); Red Cell Distribution Width 15.1 % (9.3-17.3); White Blood Count 9.5 T/CUMM (4-12)
[2020-05-16 07:11] LABS: Calcium 7.7 MG/DL (8.5-10.1); Osmolality,Calculated 288.8 MOS/KG (273-304)
[2020-05-16] MEDS: INSULIN LISPRO 100 UNIT/ML SUBCUT SCH ×4 (08:06→21:32)
[2020-05-16] MEDS: BUDESONIDE/FORMOTEROL 160-4.5 INHALER 6 GM INH SCH ×2 (09:00→21:26)
[2020-05-16] MEDS: GENTAMICIN INJ 80 MG in PREMIX 1 EACH IV SCH ×2 (09:31→21:25)
[2020-05-16] MEDS: GABAPENTIN 600 MG TABLET PO SCH ×4 (09:32→21:21)
[2020-05-16] MEDS: tiZANidine 4 MG TABLET PO SCH ×2 (09:32→21:24)
[2020-05-16] MEDS: PRAMIPEXOLE 1 MG TABLET PO SCH ×2 (09:32→21:20)
[2020-05-16] MEDS: PANTOPRAZOLE 40 MG TABLET PO SCH ×2 (09:32→21:20)
[2020-05-16] MEDS: FUROSEMIDE 20 MG TABLET PO SCH (09:33)
[2020-05-16] MEDS: ASPIRIN CHEW 81 MG TABLET PO SCH (09:33)
[2020-05-16] MEDS: DOCUSATE SODIUM 100 MG CAPSULE PO SCH ×2 (09:33→21:21)
[2020-05-16] MEDS: MORPHINE 4 MG/1 ML VIAL IV PRN (09:48)
[2020-05-16] MEDS: traMADol 50 MG TABLET PO PRN ×2 (16:57→23:21)
[2020-05-16] MEDS: ENOXAPARIN 40 MG/0.4 ML SYRINGE SUBCUT SCH (21:21)
[2020-05-17] MEDS: traMADol 50 MG TABLET PO PRN (05:25)
[2020-05-17 05:35] LABS: Basophils # 0.1 10*3/uL (0.0-0.2); Basophils % 0.9 % (0.0-0.8); Eosinophils # 0.5 10*3/uL (0.0-0.87); Eosinophils % 6.6 % (0.00-10.9); Hematocrit 34.2 VOL% (35.7-47.0); Hemoglobin 10.6 GM/DL (12.0-16.0); Immature Granulocytes % 0.5 %; Immature Granulocytes Absolute 0.04 #; Lymphocytes # 1.3 10*3/uL (1.4-4.0); Lymphocytes % 16.8 % (21.3-54.2); Mean Corpuscular Volume 94.7 FL (87-102); Monocytes % 8.1 % (1.7-12.7); Neutrophils % 67.1 % (38.7-73.9); Platelet Count 140 T/CUMM (130-400); Red Blood Count 3.61 MC/CUMM (3.8-5.5); Red Cell Distribution Width 14.7 % (9.3-17.3); White Blood Count 7.7 T/CUMM (4-12)
[2020-05-17 05:54] LABS: Calcium 8.3 MG/DL (8.5-10.1); Osmolality,Calculated 292.6 MOS/KG (273-304); Potassium 4.4 MMOL/L (3.5-5.1)
[2020-05-17] MEDS: DEXTROSE 5% NACL 0.9% 1,000 ML IV SCH (06:09)
[2020-05-17] MEDS: INSULIN LISPRO 100 UNIT/ML SUBCUT SCH ×4 (08:51→20:47)
[2020-05-17] MEDS: PRAMIPEXOLE 1 MG TABLET PO SCH ×2 (08:52→20:11)
[2020-05-17] MEDS: DOCUSATE SODIUM 100 MG CAPSULE PO SCH ×2 (08:52→20:11)
[2020-05-17] MEDS: PANTOPRAZOLE 40 MG TABLET PO SCH ×2 (08:52→20:11)
[2020-05-17] MEDS: GABAPENTIN 600 MG TABLET PO SCH ×4 (08:52→20:11)
[2020-05-17] MEDS: tiZANidine 4 MG TABLET PO SCH ×2 (08:52→20:11)
[2020-05-17] MEDS: ASPIRIN CHEW 81 MG TABLET PO SCH (08:52)
[2020-05-17] MEDS: MORPHINE 4 MG/1 ML VIAL IV PRN ×3 (08:55→20:48)
[2020-05-17] MEDS: GENTAMICIN INJ 80 MG in PREMIX 1 EACH IV SCH ×2 (08:57→20:12)
[2020-05-17] MEDS: BUDESONIDE/FORMOTEROL 160-4.5 INHALER 6 GM INH SCH ×2 (08:59→20:15)
[2020-05-17] MEDS: OLMESARTAN 20 MG TABLET PO SCH (09:00)
[2020-05-17] MEDS: ENOXAPARIN 40 MG/0.4 ML SYRINGE SUBCUT SCH (20:11)
[2020-05-18] MEDS: MORPHINE 4 MG/1 ML VIAL IV PRN ×4 (02:53→18:13)
[2020-05-18] MEDS: ASPIRIN CHEW 81 MG TABLET PO SCH (08:43)
[2020-05-18] MEDS: tiZANidine 4 MG TABLET PO SCH ×2 (08:43→20:28)
[2020-05-18] MEDS: PRAMIPEXOLE 1 MG TABLET PO SCH ×2 (08:43→20:28)
[2020-05-18] MEDS: OLMESARTAN 20 MG TABLET PO SCH (08:44)
[2020-05-18] MEDS: FUROSEMIDE 20 MG TABLET PO SCH (08:45)
[2020-05-18] MEDS: DOCUSATE SODIUM 100 MG CAPSULE PO SCH ×2 (08:45→20:28)
[2020-05-18] MEDS: PANTOPRAZOLE 40 MG TABLET PO SCH ×2 (08:45→20:28)
[2020-05-18] MEDS: GABAPENTIN 600 MG TABLET PO SCH ×4 (08:45→20:28)
[2020-05-18] MEDS: ONDANSETRON 4 MG/2 ML VIAL IV PRN (08:46)
[2020-05-18] MEDS: BUDESONIDE/FORMOTEROL 160-4.5 INHALER 6 GM INH SCH ×2 (08:46→20:29)
[2020-05-18] MEDS: GENTAMICIN INJ 80 MG in PREMIX 1 EACH IV SCH ×2 (08:51→20:28)
[2020-05-18] MEDS: INSULIN LISPRO 100 UNIT/ML SUBCUT SCH ×4 (09:16→20:29)
[2020-05-18] MEDS: DEXTROSE 5% NACL 0.9% 1,000 ML IV SCH (09:17)
[2020-05-18] MEDS: diphenhydrAMINE CAP 25 MG CAPSULE PO PRN (18:22)
[2020-05-18] MEDS: ENOXAPARIN 40 MG/0.4 ML SYRINGE SUBCUT SCH (20:28)
[2020-05-18] MEDS: NYSTATIN POWDER 15 GM BOTTLE TOP SCH (20:36)
[2020-05-19] MEDS: MORPHINE 4 MG/1 ML VIAL IV PRN ×4 (04:18→21:07)
[2020-05-19] MEDS: INSULIN LISPRO 100 UNIT/ML SUBCUT SCH ×4 (08:28→20:14)
[2020-05-19] MEDS: tiZANidine 4 MG TABLET PO SCH ×2 (08:35→21:07)
[2020-05-19] MEDS: PRAMIPEXOLE 1 MG TABLET PO SCH ×2 (08:35→21:07)
[2020-05-19] MEDS: traMADol 50 MG TABLET PO PRN (08:36)
[2020-05-19] MEDS: PANTOPRAZOLE 40 MG TABLET PO SCH ×2 (08:36→21:07)
[2020-05-19] MEDS: DOCUSATE SODIUM 100 MG CAPSULE PO SCH ×2 (08:36→21:07)
[2020-05-19] MEDS: OLMESARTAN 20 MG TABLET PO SCH (08:36)
[2020-05-19] MEDS: ASPIRIN CHEW 81 MG TABLET PO SCH (08:36)
[2020-05-19] MEDS: GABAPENTIN 600 MG TABLET PO SCH ×4 (08:36→21:06)
[2020-05-19] MEDS: GENTAMICIN INJ 80 MG in PREMIX 1 EACH IV SCH ×2 (08:39→21:03)
[2020-05-19] MEDS: BUDESONIDE/FORMOTEROL 160-4.5 INHALER 6 GM INH SCH ×2 (08:40→21:33)
[2020-05-19] MEDS: NYSTATIN POWDER 15 GM BOTTLE TOP SCH (08:40)
[2020-05-19] MEDS: ALBUTEROL 2.5 MG/3 ML NEB RESP TX PRN (17:15)
[2020-05-19] MEDS: NYSTATIN CREAM 15 GM TUBE TOP SCH (21:05)
[2020-05-19] MEDS: ENOXAPARIN 40 MG/0.4 ML SYRINGE SUBCUT SCH (21:06)
[2020-05-19] MEDS: ONDANSETRON 4 MG/2 ML VIAL IV PRN (21:07)
[2020-05-20] MEDS ORDERED: FLUCONAZOLE 150 MG TABLET PO ONE (08:00)
[2020-05-20] MEDS: INSULIN LISPRO 100 UNIT/ML SUBCUT SCH ×4 (09:10→20:41)
[2020-05-20] MEDS: PRAMIPEXOLE 1 MG TABLET PO SCH ×2 (09:16→20:38)
[2020-05-20] MEDS: PANTOPRAZOLE 40 MG TABLET PO SCH ×2 (09:16→20:38)
[2020-05-20] MEDS: FUROSEMIDE 20 MG TABLET PO SCH (09:17)
[2020-05-20] MEDS: GABAPENTIN 600 MG TABLET PO SCH ×4 (09:17→20:38)
[2020-05-20] MEDS: DOCUSATE SODIUM 100 MG CAPSULE PO SCH ×2 (09:17→20:38)
[2020-05-20] MEDS: OLMESARTAN 20 MG TABLET PO SCH (09:17)
[2020-05-20] MEDS: tiZANidine 4 MG TABLET PO SCH ×2 (09:18→20:38)
[2020-05-20] MEDS: BUDESONIDE/FORMOTEROL 160-4.5 INHALER 6 GM INH SCH ×2 (09:19→20:41)
[2020-05-20] MEDS: NYSTATIN CREAM 15 GM TUBE TOP SCH ×2 (09:19→20:41)
[2020-05-20] MEDS: ASPIRIN CHEW 81 MG TABLET PO SCH (09:19)
[2020-05-20] MEDS: GENTAMICIN INJ 80 MG in PREMIX 1 EACH IV SCH ×2 (09:24→20:40)
[2020-05-20] MEDS: MORPHINE 4 MG/1 ML VIAL IV PRN ×2 (10:20→20:36)
[2020-05-20] MEDS: traMADol 50 MG TABLET PO PRN (15:43)
[2020-05-20] MEDS: ONDANSETRON 4 MG/2 ML VIAL IV PRN (20:36)
[2020-05-20] MEDS: ENOXAPARIN 40 MG/0.4 ML SYRINGE SUBCUT SCH (20:41)
[2020-05-21] MEDS: traMADol 50 MG TABLET PO PRN (02:57)
[2020-05-21] MEDS: INSULIN LISPRO 100 UNIT/ML SUBCUT SCH ×2 (09:07→12:39)
[2020-05-21] MEDS: PANTOPRAZOLE 40 MG TABLET PO SCH (09:08)
[2020-05-21] MEDS: PRAMIPEXOLE 1 MG TABLET PO SCH (09:09)
[2020-05-21] MEDS: GABAPENTIN 600 MG TABLET PO SCH ×2 (09:10→12:41)
[2020-05-21] MEDS: tiZANidine 4 MG TABLET PO SCH (09:10)
[2020-05-21] MEDS: DOCUSATE SODIUM 100 MG CAPSULE PO SCH (09:10)
[2020-05-21] MEDS: ASPIRIN CHEW 81 MG TABLET PO SCH (09:11)
[2020-05-21] MEDS: OLMESARTAN 20 MG TABLET PO SCH (09:11)
[2020-05-21] MEDS: GENTAMICIN INJ 80 MG in PREMIX 1 EACH IV SCH (09:12)
[2020-05-21] MEDS: NYSTATIN CREAM 15 GM TUBE TOP SCH (09:13)
[2020-05-21] MEDS: BUDESONIDE/FORMOTEROL 160-4.5 INHALER 6 GM INH SCH (09:14)
[2020-05-21 12:00] VITALS: BP 116/66
== END 2020-05-21 13:50 | disposition hospice, home (50) | DRG 315 ==
LOC: N.EDINP 13:30 → N.ED 13:30 → N.EDINP 18:40 → N.5E 18:49
PROVIDERS: ADMIT Family Medicine; ATTEND Family Medicine

== ENCOUNTER 2020-08-01 16:27 | Inpatient (IN) ==
[2020-08-01 16:56] LABS: Basophils # 0.1 10*3/uL (0.0-0.2); Eosinophils # 0.4 10*3/uL (0.0-0.87); Eosinophils % 4.3 % (0.00-10.9); Hematocrit 37.3 VOL% (35.7-47.0); Hemoglobin 11.9 GM/DL (12.0-16.0); Immature Granulocytes % 0.6 %; Immature Granulocytes Absolute 0.05 #; Lymphocytes % 24.8 % (21.3-54.2); Mean Corpuscular HGB Conc 31.9 GM/DL (32-36); Mean Corpuscular Volume 91.4 FL (87-102); Mean Platelet Volume 11.3 FL (9.6-12.0); Monocytes % 6.9 % (1.7-12.7); Neutrophils % 62.4 % (38.7-73.9); Platelet Count 203 T/CUMM (130-400); Red Blood Count 4.08 MC/CUMM (3.8-5.5); Red Cell Distribution Width 13.8 % (9.3-17.3); White Blood Count 8.1 T/CUMM (4-12)
[2020-08-01] MEDS ORDERED: methylPREDNISolone SOD SUC 125 MG/2 ML VIAL IV STA (16:59)
[2020-08-01] MEDS ORDERED: ALBUTEROL/IPRATROPIUM 3 ML NEB RESP TX STA (16:59)
[2020-08-01 17:28] LABS: Albumin 3.4 G/DL (3.4-5.0); Bilirubin,Total 0.6 MG/DL (0.2-1.0); Calcium 8.9 MG/DL (8.5-10.1); Osmolality,Calculated 286.1 MOS/KG (273-304); Potassium 3.9 MMOL/L (3.5-5.1); Total Protein 6.5 G/DL (6.4-8.3)
[2020-08-01] MEDS: MORPHINE 4 MG/1 ML VIAL IV PRN (19:53)
[2020-08-02] MEDS: MORPHINE 4 MG/1 ML VIAL IV PRN (01:06)
[2020-08-02 07:56] LABS: Basophils % 0.1 % (0.0-0.8); Hematocrit 35.2 VOL% (35.7-47.0); Hemoglobin 11.3 GM/DL (12.0-16.0); Immature Granulocytes % 0.9 %; Immature Granulocytes Absolute 0.07 #; Lymphocytes # 0.9 10*3/uL (1.4-4.0); Mean Corpuscular HGB Conc 32.1 GM/DL (32-36); Mean Corpuscular Volume 92.1 FL (87-102); Monocytes % 1.3 % (1.7-12.7); Neutrophils % 86.7 % (38.7-73.9); Platelet Count 184 T/CUMM (130-400); Red Blood Count 3.82 MC/CUMM (3.8-5.5); Red Cell Distribution Width 13.7 % (9.3-17.3); White Blood Count 7.8 T/CUMM (4-12)
[2020-08-02 08:14] LABS: Albumin 2.9 G/DL (3.4-5.0); Bilirubin,Total 1.4 MG/DL (0.2-1.0); Calcium 9.2 MG/DL (8.5-10.1); Osmolality,Calculated 287.5 MOS/KG (273-304); Potassium 4.3 MMOL/L (3.5-5.1); Total Protein 6.5 G/DL (6.4-8.3)
[2020-08-02] MEDS ORDERED: diphenhydrAMINE CAP 25 MG CAPSULE PO ONE (08:18)
[2020-08-02] MEDS ORDERED: DIAZEPAM 5 MG TABLET PO ONE (08:18)
[2020-08-02] MEDS ORDERED: VANCOMYCIN 500 MG VIAL IRRIG ONE (08:18)
[2020-08-02] MEDS ORDERED: VANCOMYCIN INJ 1,000 MG in SODIUM CHLORIDE 0.9% 250 ML IV ONE (08:18)
[2020-08-02] MEDS ORDERED: SODIUM CHLORIDE 0.9% 1,000 ML IV SCH (08:30)
[2020-08-02] MEDS ORDERED: VANCOMYCIN 500 MG VIAL ONE (08:46)
[2020-08-02] MEDS ORDERED: TISSUE ADHESIVE 1 EACH APPLICATOR TOP ONE (08:46)
[2020-08-02] MEDS ORDERED: LIDOCAINE 1%/EPI INJ 20 ML VIAL ONE (08:46)
[2020-08-02] MEDS ORDERED: HYDROmorphone 2 MG/1 ML VIAL ONE ×2 (10:03→10:19)
[2020-08-02] MEDS ORDERED: MIDAZOLAM 2 MG/2 ML VIAL ONE ×2 (10:03→10:19)
[2020-08-02] MEDS ORDERED: ONDANSETRON 4 MG/2 ML VIAL ONE (10:03)
[2020-08-02] MEDS: PANTOPRAZOLE 40 MG TABLET PO SCH ×2 (10:37→20:52)
[2020-08-02] MEDS: diphenhydrAMINE CAP 25 MG CAPSULE PO PRN ×2 (11:29→20:52)
[2020-08-02] MEDS: ONDANSETRON 4 MG/2 ML VIAL IV PRN (11:30)
[2020-08-02] MEDS ORDERED: hydrOXYzine HCL 25 MG TABLET PO PRN (13:20)
[2020-08-02] MEDS ORDERED: tiZANidine 4 MG TABLET PO PRN (16:00)
[2020-08-02] MEDS ORDERED: DEXTROSE 50% 25 GM/50 ML VIAL IV PRN (16:02)
[2020-08-02] MEDS ORDERED: GLUCAGON 1 MG VIAL IM PRN (16:02)
[2020-08-02] MEDS ORDERED: traZODone 50 MG TABLET PO PRN (16:02)
[2020-08-02] MEDS: INSULIN LISPRO 100 UNIT/ML SUBCUT SCH ×2 (16:07→20:56)
[2020-08-02] MEDS: GABAPENTIN 300 MG CAPSULE PO SCH ×2 (16:18→20:52)
[2020-08-02] MEDS: methylPREDNISolone SOD SUC 40 MG/1 ML VIAL IV SCH (17:20)
[2020-08-02] MEDS ORDERED: ALBUTEROL 2.5 MG/3 ML NEB RESP TX PRN (19:00)
[2020-08-02] MEDS: BUDESONIDE/FORMOTEROL 160-4.5 INHALER 6 GM INH SCH (20:53)
[2020-08-03] MEDS: methylPREDNISolone SOD SUC 40 MG/1 ML VIAL IV SCH ×2 (06:18→17:32)
[2020-08-03 06:20] LABS: Basophils # 0.1 10*3/uL (0.0-0.2); Basophils % 0.7 % (0.0-0.8); Eosinophils % 0.1 % (0.00-10.9); Hematocrit 35.1 VOL% (35.7-47.0); Hemoglobin 11.2 GM/DL (12.0-16.0); Immature Granulocytes % 0.8 %; Immature Granulocytes Absolute 0.09 #; Lymphocytes % 8.9 % (21.3-54.2); Mean Corpuscular HGB Conc 31.9 GM/DL (32-36); Mean Corpuscular Volume 92.9 FL (87-102); Mean Platelet Volume 11.8 FL (9.6-12.0); Monocytes % 4.9 % (1.7-12.7); Neutrophils % 84.6 % (38.7-73.9); Platelet Count 175 T/CUMM (130-400); Red Blood Count 3.78 MC/CUMM (3.8-5.5); White Blood Count 11.3 T/CUMM (4-12)
[2020-08-03 06:36] LABS: Calcium 8.7 MG/DL (8.5-10.1); Osmolality,Calculated 289.1 MOS/KG (273-304); Potassium 4.8 MMOL/L (3.5-5.1)
[2020-08-03] MEDS: INSULIN LISPRO 100 UNIT/ML SUBCUT SCH ×4 (07:56→21:05)
[2020-08-03] MEDS: BUDESONIDE/FORMOTEROL 160-4.5 INHALER 6 GM INH SCH ×2 (08:22→21:05)
[2020-08-03] MEDS: GABAPENTIN 300 MG CAPSULE PO SCH ×4 (08:22→21:05)
[2020-08-03] MEDS: PANTOPRAZOLE 40 MG TABLET PO SCH ×3 (08:22→21:05)
[2020-08-03] MEDS: diphenhydrAMINE CAP 25 MG CAPSULE PO PRN (08:26)
[2020-08-03] MEDS: ONDANSETRON 4 MG/2 ML VIAL IV PRN (11:18)
[2020-08-03] MEDS ORDERED: DIAZEPAM 5 MG TABLET PO ONE (12:23)
[2020-08-03] MEDS ORDERED: diphenhydrAMINE CAP 25 MG CAPSULE PO ONE (12:23)
[2020-08-03] MEDS: SODIUM CHLORIDE 0.9% 1,000 ML IV SCH (13:12)
[2020-08-03] MEDS ORDERED: LIDOCAINE 1%/EPI INJ 20 ML VIAL ONE ×2 (14:17→14:45)
[2020-08-03] MEDS ORDERED: fentaNYL 100 MCG/2 ML VIAL ONE (14:48)
[2020-08-03] MEDS ORDERED: MIDAZOLAM 2 MG/2 ML VIAL ONE ×2 (14:48→15:03)
[2020-08-03] MEDS ORDERED: diphenhydrAMINE 50 MG/1 ML VIAL ONE (14:50)
[2020-08-03] MEDS ORDERED: ceFAZolin 1,000 MG VIAL ONE ×2 (15:02)
[2020-08-03] MEDS ORDERED: TISSUE ADHESIVE 1 EACH APPLICATOR TOP ONE (15:32)
[2020-08-04] MEDS: methylPREDNISolone SOD SUC 40 MG/1 ML VIAL IV SCH ×2 (05:08→17:20)
[2020-08-04 05:45] LABS: Basophils % 0.2 % (0.0-0.8); Hematocrit 34.8 VOL% (35.7-47.0); Hemoglobin 10.6 GM/DL (12.0-16.0); Immature Granulocytes % 1.7 %; Immature Granulocytes Absolute 0.18 #; Lymphocytes # 0.9 10*3/uL (1.4-4.0); Lymphocytes % 8.2 % (21.3-54.2); Mean Corpuscular HGB Conc 30.5 GM/DL (32-36); Mean Corpuscular Volume 94.3 FL (87-102); Mean Platelet Volume 11.9 FL (9.6-12.0); Monocytes % 4.8 % (1.7-12.7); Neutrophils % 85.1 % (38.7-73.9); Platelet Count 175 T/CUMM (130-400); Red Blood Count 3.69 MC/CUMM (3.8-5.5); Red Cell Distribution Width 14.2 % (9.3-17.3); White Blood Count 10.4 T/CUMM (4-12)
[2020-08-04 06:09] LABS: Calcium 8.8 MG/DL (8.5-10.1); Osmolality,Calculated 296.3 MOS/KG (273-304); Potassium 4.3 MMOL/L (3.5-5.1)
[2020-08-04] MEDS: INSULIN LISPRO 100 UNIT/ML SUBCUT SCH ×4 (08:21→21:22)
[2020-08-04] MEDS: PANTOPRAZOLE 40 MG TABLET PO SCH ×3 (08:44→20:51)
[2020-08-04] MEDS: GABAPENTIN 300 MG CAPSULE PO SCH ×4 (08:44→20:51)
[2020-08-04] MEDS: BUDESONIDE/FORMOTEROL 160-4.5 INHALER 6 GM INH SCH ×2 (08:44→20:52)
[2020-08-04] MEDS ORDERED: KETOROLAC 30 MG/1 ML VIAL IV ONE (12:05)
[2020-08-04] MEDS ORDERED: ALUM/MAG/SIMETH/LIDO VISC 1:1 30 ML BOTTLE PO ONE (12:05)
[2020-08-04] MEDS: ONDANSETRON 4 MG/2 ML VIAL IV PRN ×2 (12:45→17:24)
[2020-08-04 12:47] LABS: Troponin I 0.084 NG/ML (0.00-0.045)
[2020-08-04] MEDS ORDERED: CYCLOBENZAPRINE 10 MG TABLET PO ONE (13:57)
[2020-08-04] MEDS: SODIUM CHLORIDE 0.9% 1,000 ML IV SCH (14:04)
[2020-08-04] MEDS: diphenhydrAMINE CAP 25 MG CAPSULE PO PRN (17:24)
[2020-08-05] MEDS: methylPREDNISolone SOD SUC 40 MG/1 ML VIAL IV SCH (05:00)
[2020-08-05] MEDS: INSULIN LISPRO 100 UNIT/ML SUBCUT SCH ×2 (08:15→11:37)
[2020-08-05] MEDS: GABAPENTIN 300 MG CAPSULE PO SCH (08:15)
[2020-08-05] MEDS: PANTOPRAZOLE 40 MG TABLET PO SCH ×2 (08:16)
[2020-08-05] MEDS: BUDESONIDE/FORMOTEROL 160-4.5 INHALER 6 GM INH SCH (08:16)
[2020-08-05 12:13] VITALS: BP 179/66
== END 2020-08-05 12:35 | disposition home health service (06) | DRG 261 ==
LOC: N.ED 16:27 → N.EDINP 16:27 → N.TELES 20:12
PROVIDERS: ADMIT Family Medicine; ATTEND Family Medicine

== ENCOUNTER 2020-10-15 17:02 | Inpatient (IN) ==
[2020-10-15 17:51] LABS: Basophils # 0.1 10*3/uL (0.0-0.2); Basophils % 0.8 % (0.0-0.8); Eosinophils # 0.2 10*3/uL (0.0-0.87); Eosinophils % 2.3 % (0.00-10.9); Hematocrit 37.1 VOL% (35.7-47.0); Hemoglobin 11.6 GM/DL (12.0-16.0); Immature Granulocytes % 0.4 %; Immature Granulocytes Absolute 0.04 #; Lymphocytes # 2.3 10*3/uL (1.4-4.0); Lymphocytes % 25.5 % (21.3-54.2); Mean Corpuscular HGB Conc 31.3 GM/DL (32-36); Mean Corpuscular Volume 92.5 FL (87-102); Mean Platelet Volume 11.2 FL (9.6-12.0); Monocytes % 7.6 % (1.7-12.7); Neutrophils % 63.4 % (38.7-73.9); Platelet Count 196 T/CUMM (130-400); Red Blood Count 4.01 MC/CUMM (3.8-5.5); White Blood Count 9.1 T/CUMM (4-12)
[2020-10-15] MEDS: NITROGLYCERIN SL 0.4 MG TABLET SL PRN ×3 (17:52→18:12)
[2020-10-15 18:02] LABS: INR 0.9; PT Patient Result 10.5 SECS (9.8-11.9)
[2020-10-15 18:19] LABS: Alanine Aminotransferase 27 U/L (13-56); Albumin 3.4 G/DL (3.4-5.0); Alkaline Phosphatase 103 U/L (45-117); Aspartate Amino Transferase 15 U/L (0-37); Bilirubin,Total < 0.39 MG/DL (0.2-1.0); Blood Urea Nitrogen 19 MG/DL (7-18); Calcium 8.8 MG/DL (8.5-10.1); Carbon Dioxide 28 MMOL/L (21-32); Estimated Glom Filtration Rate 94 ML/MIN; Glucose 118 MG/DL (74-106); Osmolality,Calculated 285.1 MOS/KG (273-304); Potassium 3.6 MMOL/L (3.5-5.1); Sodium 142 MMOL/L (136-145); Total Protein 6.2 G/DL (6.4-8.2)
[2020-10-15] MEDS ORDERED: ONDANSETRON 4 MG/2 ML VIAL IV ONE (18:54)
[2020-10-15] MEDS ORDERED: MORPHINE 4 MG/1 ML VIAL IV STA (18:54)
[2020-10-15] MEDS ORDERED: ONDANSETRON 4 MG/2 ML VIAL IV STA (21:09)
[2020-10-15] MEDS: BUDESONIDE/FORMOTEROL 160-4.5 INHALER 6 GM INH SCH (23:00)
[2020-10-15] MEDS: MORPHINE 4 MG/1 ML VIAL IV PRN (23:38)
[2020-10-15] MEDS: GABAPENTIN 300 MG CAPSULE PO SCH (23:38)
[2020-10-15] MEDS: carvediloL 6.25 MG TABLET PO SCH (23:38)
[2020-10-16] MEDS: ONDANSETRON 4 MG/2 ML VIAL IV PRN ×3 (03:21→14:00)
[2020-10-16 03:29] LABS: Basophils # 0.1 10*3/uL (0.0-0.2); Eosinophils # 0.3 10*3/uL (0.0-0.87); Eosinophils % 3.9 % (0.00-10.9); Hematocrit 37.1 VOL% (35.7-47.0); Hemoglobin 11.4 GM/DL (12.0-16.0); Immature Granulocytes % 0.7 %; Immature Granulocytes Absolute 0.05 #; Lymphocytes # 2.2 10*3/uL (1.4-4.0); Lymphocytes % 32.2 % (21.3-54.2); Mean Corpuscular HGB Conc 30.7 GM/DL (32-36); Mean Corpuscular Volume 94.2 FL (87-102); Mean Platelet Volume 10.8 FL (9.6-12.0); Neutrophils % 53.2 % (38.7-73.9); Platelet Count 164 T/CUMM (130-400); Red Blood Count 3.94 MC/CUMM (3.8-5.5); Red Cell Distribution Width 14.2 % (9.3-17.3); White Blood Count 6.7 T/CUMM (4-12)
[2020-10-16 03:46] LABS: Albumin 2.9 G/DL (3.4-5.0); Bilirubin,Total 0.8 MG/DL (0.2-1.0); Calcium 8.4 MG/DL (8.5-10.1); Potassium 3.8 MMOL/L (3.5-5.1)
[2020-10-16] MEDS: MORPHINE 4 MG/1 ML VIAL IV PRN ×5 (03:54→20:55)
[2020-10-16] MEDS: carvediloL 6.25 MG TABLET PO SCH ×2 (08:53→20:54)
[2020-10-16] MEDS: GABAPENTIN 300 MG CAPSULE PO SCH ×4 (08:54→20:54)
[2020-10-16] MEDS: BUDESONIDE/FORMOTEROL 160-4.5 INHALER 6 GM INH SCH ×2 (08:54→21:06)
[2020-10-16] MEDS: SPIRONOLACTONE 25 MG TABLET PO SCH (08:54)
[2020-10-16] MEDS: PANTOPRAZOLE 40 MG TABLET PO SCH (08:54)
[2020-10-16] MEDS: ALBUTEROL/IPRATROPIUM 3 ML NEB RESP TX PRN ×3 (11:50→20:02)
[2020-10-16] MEDS ORDERED: ALBUTEROL 2.5 MG/3 ML NEB RESP TX PRN (15:01)
[2020-10-16] MEDS ORDERED: hydrALAZINE 20 MG/1 ML VIAL IV PRN (15:02)
[2020-10-16] MEDS ORDERED: MAGNESIUM SULF RIDER 4 GM/100 ML PREMIX IV PRN (15:06)
[2020-10-16] MEDS ORDERED: MAGNESIUM SULF RIDER 2 GM/50 ML PREMIX IV PRN (15:06)
[2020-10-16] MEDS ORDERED: POTASSIUM CHLORIDE 20 MEQ TABLET PO PRN (15:06)
[2020-10-16] MEDS ORDERED: DEXTROSE 50% 25 GM/50 ML VIAL IV PRN (15:06)
[2020-10-16] MEDS ORDERED: GLUCAGON 1 MG VIAL IM PRN (15:06)
[2020-10-16] MEDS: INSULIN LISPRO 100 UNIT/ML SUBCUT SCH ×2 (15:54→21:05)
[2020-10-16] MEDS: methylPREDNISolone SOD SUC 40 MG/1 ML VIAL IV SCH (16:02)
[2020-10-16] MEDS: PROMETHAZINE 25 MG/1 ML VIAL IM PRN (16:04)
[2020-10-16] MEDS: tiZANidine 4 MG TABLET PO SCH (21:05)
[2020-10-17] MEDS: PROMETHAZINE 25 MG/1 ML VIAL IM PRN ×3 (00:09→16:24)
[2020-10-17] MEDS: methylPREDNISolone SOD SUC 40 MG/1 ML VIAL IV SCH ×2 (03:13→15:40)
[2020-10-17] MEDS: MORPHINE 4 MG/1 ML VIAL IV PRN ×5 (03:13→23:26)
[2020-10-17 06:10] LABS: Basophils % 0.3 % (0.0-0.8); Hematocrit 37.3 VOL% (35.7-47.0); Hemoglobin 11.9 GM/DL (12.0-16.0); Immature Granulocytes % 0.9 %; Immature Granulocytes Absolute 0.08 #; Lymphocytes % 11.8 % (21.3-54.2); Mean Corpuscular HGB Conc 31.9 GM/DL (32-36); Mean Corpuscular Volume 93.5 FL (87-102); Mean Platelet Volume 11.9 FL (9.6-12.0); Monocytes % 3.3 % (1.7-12.7); Neutrophils % 83.7 % (38.7-73.9); Platelet Count 179 T/CUMM (130-400); Red Blood Count 3.99 MC/CUMM (3.8-5.5); Red Cell Distribution Width 13.8 % (9.3-17.3); White Blood Count 8.8 T/CUMM (4-12)
[2020-10-17] MEDS: ALBUTEROL/IPRATROPIUM 3 ML NEB RESP TX PRN (06:25)
[2020-10-17 06:30] LABS: Calcium 8.6 MG/DL (8.5-10.1); Osmolality,Calculated 279.7 MOS/KG (273-304); Potassium 4.6 MMOL/L (3.5-5.1)
[2020-10-17] MEDS: INSULIN LISPRO 100 UNIT/ML SUBCUT SCH ×4 (07:35→21:33)
[2020-10-17] MEDS: GABAPENTIN 300 MG CAPSULE PO SCH ×4 (08:29→21:36)
[2020-10-17] MEDS: CHOLECALCIFEROL 1,000 UNIT TABLET PO SCH (08:29)
[2020-10-17] MEDS: carvediloL 6.25 MG TABLET PO SCH ×2 (08:29→21:34)
[2020-10-17] MEDS: PANTOPRAZOLE 40 MG TABLET PO SCH (08:29)
[2020-10-17] MEDS: tiZANidine 4 MG TABLET PO SCH ×2 (08:29→21:34)
[2020-10-17] MEDS: SPIRONOLACTONE 25 MG TABLET PO SCH (08:29)
[2020-10-17] MEDS: BUDESONIDE/FORMOTEROL 160-4.5 INHALER 6 GM INH SCH ×2 (08:30→21:33)
[2020-10-17] MEDS ORDERED: cefTRIAXone 2,000 MG in SODIUM CHLORIDE 0.9% 100 ML IV ONE (15:03)
[2020-10-17] MEDS ORDERED: FUROSEMIDE 40 MG/4 ML VIAL IV ONE (16:57)
[2020-10-17] MEDS ORDERED: MORPHINE 4 MG/1 ML VIAL IV ONE (18:01)
[2020-10-17] MEDS ORDERED: NALOXONE 0.4 MG/ML VIAL IV PRN (18:03)
[2020-10-17] MEDS ORDERED: ORPHENADRINE 60 MG/2 ML VIAL IM PRN (18:05)
[2020-10-17] MEDS: ALBUTEROL/IPRATROPIUM 3 ML NEB RESP TX SCH ×2 (19:59→23:57)
[2020-10-18] MEDS: MORPHINE 4 MG/1 ML VIAL IV PRN ×3 (03:28→13:21)
[2020-10-18] MEDS: ALBUTEROL/IPRATROPIUM 3 ML NEB RESP TX SCH ×3 (03:31→10:54)
[2020-10-18] MEDS: methylPREDNISolone SOD SUC 40 MG/1 ML VIAL IV SCH ×2 (04:51→15:40)
[2020-10-18 05:40] LABS: Calcium 8.4 MG/DL (8.5-10.1); Osmolality,Calculated 289.3 MOS/KG (273-304); Potassium 4.1 MMOL/L (3.5-5.1)
[2020-10-18] MEDS: INSULIN LISPRO 100 UNIT/ML SUBCUT SCH ×3 (08:27→15:41)
[2020-10-18] MEDS ORDERED: cefTRIAXone 1,000 MG in SODIUM CHLORIDE 0.9% 100 ML IV SCH (09:00)
[2020-10-18] MEDS: PANTOPRAZOLE 40 MG TABLET PO SCH (09:10)
[2020-10-18] MEDS: tiZANidine 4 MG TABLET PO SCH (09:10)
[2020-10-18] MEDS: CHOLECALCIFEROL 1,000 UNIT TABLET PO SCH (09:10)
[2020-10-18] MEDS: SPIRONOLACTONE 25 MG TABLET PO SCH (09:11)
[2020-10-18] MEDS: GABAPENTIN 300 MG CAPSULE PO SCH ×2 (09:11→12:31)
[2020-10-18] MEDS: carvediloL 6.25 MG TABLET PO SCH (09:11)
[2020-10-18] MEDS: BUDESONIDE/FORMOTEROL 160-4.5 INHALER 6 GM INH SCH (09:12)
[2020-10-18 11:20] VITALS: BP 127/72
== END 2020-10-18 16:57 | disposition home or self-care (01) | DRG 202 ==
LOC: N.ED 17:02 → N.EDINP 17:02 → N.TELEN 22:35
PROVIDERS: ADMIT Family Medicine; ATTEND Family Medicine

== ENCOUNTER 2020-12-12 16:04 | Observation (INO) ==
[2020-12-12 16:49] LABS: Basophils # 0.1 10*3/uL (0.0-0.2); Basophils % 0.9 % (0.0-0.8); Eosinophils # 0.4 10*3/uL (0.0-0.87); Eosinophils % 5.1 % (0.00-10.9); Hemoglobin 11.4 GM/DL (12.0-16.0); Immature Granulocytes % 0.6 %; Immature Granulocytes Absolute 0.05 #; Lymphocytes # 2.2 10*3/uL (1.4-4.0); Lymphocytes % 27.4 % (21.3-54.2); Mean Corpuscular HGB Conc 31.7 GM/DL (32-36); Mean Corpuscular Volume 89.1 FL (87-102); Mean Platelet Volume 11.3 FL (9.6-12.0); Monocytes % 6.4 % (1.7-12.7); Neutrophils % 59.6 % (38.7-73.9); Platelet Count 225 T/CUMM (130-400); Red Blood Count 4.04 MC/CUMM (3.8-5.5); White Blood Count 7.9 T/CUMM (4-12)
[2020-12-12 17:11] LABS: Albumin 3.3 G/DL (3.4-5.0); Bilirubin,Total 0.4 MG/DL (0.2-1.0); Calcium 8.5 MG/DL (8.5-10.1); Osmolality,Calculated 289.8 MOS/KG (273-304); Potassium 3.6 MMOL/L (3.5-5.1); Total Protein 6.5 G/DL (6.4-8.2)
[2020-12-12] MEDS ORDERED: FUROSEMIDE 20 MG/2 ML VIAL IV STA (18:16)
[2020-12-12] MEDS ORDERED: ALBUTEROL/IPRATROPIUM 3 ML NEB RESP TX STA (18:16)
[2020-12-12] MEDS ORDERED: FUROSEMIDE 40 MG/4 ML VIAL ONE (18:28)
[2020-12-12] MEDS ORDERED: ONDANSETRON 4 MG/2 ML VIAL IV PRN (20:32)
[2020-12-12] MEDS: DOCUSATE SODIUM 100 MG CAPSULE PO SCH (22:54)
[2020-12-12] MEDS: FUROSEMIDE 20 MG/2 ML VIAL IV SCH (22:55)
[2020-12-12] MEDS: methylPREDNISolone SOD SUC 125 MG/2 ML VIAL IV SCH (22:55)
[2020-12-13] MEDS: ALBUTEROL/IPRATROPIUM 3 ML NEB RESP TX SCH ×4 (00:56→21:55)
[2020-12-13] MEDS: methylPREDNISolone SOD SUC 125 MG/2 ML VIAL IV SCH ×3 (05:26→22:11)
[2020-12-13] MEDS: FUROSEMIDE 20 MG/2 ML VIAL IV SCH ×2 (08:54→20:44)
[2020-12-13] MEDS: PANTOPRAZOLE 40 MG TABLET PO SCH (08:55)
[2020-12-13] MEDS: DOCUSATE SODIUM 100 MG CAPSULE PO SCH ×2 (08:55→20:42)
[2020-12-13] MEDS: IBUPROFEN 600 MG TABLET PO PRN ×3 (08:55→22:12)
[2020-12-13] MEDS: carvediloL 12.5 MG TABLET PO SCH ×2 (10:13→20:41)
[2020-12-13] MEDS ORDERED: GLUCAGON 1 MG VIAL IM PRN (12:17)
[2020-12-13] MEDS ORDERED: DEXTROSE 50% 25 GM/50 ML VIAL IV PRN (12:17)
[2020-12-13] MEDS ORDERED: ALBUTEROL 2.5 MG/3 ML NEB RESP TX PRN (12:20)
[2020-12-13 13:03] LABS: Calcium 8.6 MG/DL (8.5-10.1)
[2020-12-13] MEDS: GABAPENTIN 300 MG CAPSULE PO SCH ×2 (14:12→20:42)
[2020-12-13] MEDS: INSULIN LISPRO 100 UNIT/ML SUBCUT SCH ×2 (16:00→20:43)
[2020-12-13] MEDS ORDERED: ACETAMINOPHEN 500 MG TABLET PO PRN (17:53)
[2020-12-13] MEDS: tiZANidine 4 MG TABLET PO SCH (20:42)
[2020-12-13] MEDS: MORPHINE 4 MG/1 ML VIAL IV PRN (20:44)
[2020-12-13] MEDS: BUDESONIDE/FORMOTEROL 160-4.5 INHALER 6 GM INH SCH (22:11)
[2020-12-14] MEDS ORDERED: PROMETHAZINE 25 MG/1 ML VIAL IM ONE (01:35)
[2020-12-14] MEDS: MORPHINE 4 MG/1 ML VIAL IV PRN (02:36)
[2020-12-14 04:39] LABS: Basophils % 0.1 % (0.0-0.8); Hematocrit 36.5 VOL% (35.7-47.0); Hemoglobin 11.3 GM/DL (12.0-16.0); Immature Granulocytes % 1.1 %; Lymphocytes % 10.9 % (21.3-54.2); Mean Corpuscular Volume 91.3 FL (87-102); Mean Platelet Volume 11.5 FL (9.6-12.0); Monocytes % 2.2 % (1.7-12.7); Neutrophils % 85.7 % (38.7-73.9); Platelet Count 197 T/CUMM (130-400); Red Cell Distribution Width 13.5 % (9.3-17.3); White Blood Count 9.5 T/CUMM (4-12)
[2020-12-14 04:52] LABS: Calcium 8.2 MG/DL (8.5-10.1); Osmolality,Calculated 293.4 MOS/KG (273-304); Potassium 3.6 MMOL/L (3.5-5.1)
[2020-12-14] MEDS: ALBUTEROL/IPRATROPIUM 3 ML NEB RESP TX SCH ×2 (05:01→08:41)
[2020-12-14] MEDS: methylPREDNISolone SOD SUC 125 MG/2 ML VIAL IV SCH (06:18)
[2020-12-14] MEDS: INSULIN LISPRO 100 UNIT/ML SUBCUT SCH (09:37)
[2020-12-14] MEDS: FUROSEMIDE 20 MG/2 ML VIAL IV SCH (09:38)
[2020-12-14] MEDS: PANTOPRAZOLE 40 MG TABLET PO SCH (09:42)
[2020-12-14] MEDS: tiZANidine 4 MG TABLET PO SCH (09:42)
[2020-12-14] MEDS: GABAPENTIN 300 MG CAPSULE PO SCH (09:42)
[2020-12-14] MEDS: DOCUSATE SODIUM 100 MG CAPSULE PO SCH (09:42)
[2020-12-14] MEDS: carvediloL 12.5 MG TABLET PO SCH (09:43)
[2020-12-14] MEDS: BUDESONIDE/FORMOTEROL 160-4.5 INHALER 6 GM INH SCH (09:43)
[2020-12-14 12:26] VITALS: BP 108/70
== END 2020-12-14 11:55 | disposition home or self-care (01) ==
LOC: N.EDINP 16:04 → N.ED 16:04 → N.EDINP 20:04 → N.4E 21:12
PROVIDERS: ADMIT Family Medicine; ATTEND Family Medicine

== ENCOUNTER 2021-04-03 16:08 | Inpatient (IN) ==
[2021-04-03 19:00] LABS: Basophils # 0.1 10*3/uL (0.0-0.2); Basophils % 0.8 % (0.0-0.8); Eosinophils # 0.3 10*3/uL (0.0-0.87); Eosinophils % 3.6 % (0.00-10.9); Hematocrit 38.1 VOL% (35.7-47.0); Immature Granulocytes % 0.7 %; Immature Granulocytes Absolute 0.06 #; Lymphocytes % 23.6 % (21.3-54.2); Mean Corpuscular HGB Conc 31.5 GM/DL (32-36); Mean Corpuscular Volume 89.6 FL (87-102); Mean Platelet Volume 11.2 FL (9.6-12.0); Monocytes % 9.7 % (1.7-12.7); Neutrophils % 61.6 % (38.7-73.9); Platelet Count 213 T/CUMM (130-400); Red Blood Count 4.25 MC/CUMM (3.8-5.5); Red Cell Distribution Width 15.3 % (9.3-17.3); White Blood Count 8.4 T/CUMM (4-12)
[2021-04-03] MEDS ORDERED: LEVOFLOXACIN INJ 500 MG/100 ML PREMIX IV ONE (19:09)
[2021-04-03 19:25] LABS: Albumin 3.4 G/DL (3.4-5.0); Bilirubin,Total 0.7 MG/DL (0.20-1.00); Calcium 8.6 MG/DL (8.5-10.1); Osmolality,Calculated 284.3 MOS/KG (273-304); Potassium 3.3 MMOL/L (3.5-5.1); Total Protein 6.2 G/DL (6.4-8.2)
[2021-04-03] MEDS ORDERED: POTASSIUM CHLORIDE 20 MEQ TABLET PO STA (19:29)
[2021-04-03] MEDS ORDERED: methylPREDNISolone SOD SUC 125 MG/2 ML VIAL IV STA (20:25)
[2021-04-03] MEDS ORDERED: ALBUTEROL/IPRATROPIUM 3 ML NEB RESP TX STA (20:25)
[2021-04-03] MEDS ORDERED: DEXTROSE 50% 25 GM/50 ML VIAL IV PRN (20:27)
[2021-04-03] MEDS ORDERED: ALBUTEROL/IPRATROPIUM 3 ML NEB RESP TX PRN (20:27)
[2021-04-03] MEDS ORDERED: GLUCAGON 1 MG VIAL IM PRN (20:27)
[2021-04-03] MEDS: SODIUM CHLORIDE 0.9% 1,000 ML IV SCH (21:53)
[2021-04-03] MEDS ORDERED: KETOROLAC 15 MG/1 ML VIAL IV SCH (23:45)
[2021-04-03] MEDS ORDERED: KETOROLAC 15 MG/1 ML VIAL IV PRN (23:57)
[2021-04-04] MEDS: BENZONATATE 100 MG CAPSULE PO PRN ×2 (00:21→18:26)
[2021-04-04] MEDS: INSULIN REGULAR 100 UNIT/ML SUBCUT SCH ×4 (00:24→17:41)
[2021-04-04] MEDS: methylPREDNISolone SOD SUC 40 MG/1 ML VIAL IV SCH ×4 (01:52→21:38)
[2021-04-04 06:13] LABS: Basophils % 0.3 % (0.0-0.8); Eosinophils % 0.2 % (0.00-10.9); Hematocrit 38.2 VOL% (35.7-47.0); Immature Granulocytes % 1.6 %; Immature Granulocytes Absolute 0.09 #; Lymphocytes # 0.8 10*3/uL (1.4-4.0); Lymphocytes % 14.1 % (21.3-54.2); Mean Corpuscular HGB Conc 31.4 GM/DL (32-36); Mean Corpuscular Volume 89.7 FL (87-102); Mean Platelet Volume 10.9 FL (9.6-12.0); Monocytes % 0.9 % (1.7-12.7); Neutrophils % 82.9 % (38.7-73.9); Platelet Count 190 T/CUMM (130-400); Red Blood Count 4.26 MC/CUMM (3.8-5.5); Red Cell Distribution Width 14.8 % (9.3-17.3); White Blood Count 5.7 T/CUMM (4-12)
[2021-04-04 06:34] LABS: Hypochromasia 1+
[2021-04-04 06:35] LABS: Microcytosis 1+; Ovalocytes Slight; Platelet Estimate Adequate
[2021-04-04 06:38] LABS: Albumin 3.1 G/DL (3.4-5.0); Bilirubin,Total 0.5 MG/DL (0.20-1.00); Calcium 8.4 MG/DL (8.5-10.1); Osmolality,Calculated 288.3 MOS/KG (273-304); Potassium 3.7 MMOL/L (3.5-5.1); Total Protein 6.6 G/DL (6.4-8.2)
[2021-04-04] MEDS: PANTOPRAZOLE 40 MG TABLET PO SCH (10:37)
[2021-04-04] MEDS: ACETAMINOPHEN 325 MG TABLET PO PRN (10:45)
[2021-04-04] MEDS: SODIUM CHLORIDE 0.9% 1,000 ML IV SCH (13:15)
[2021-04-04] MEDS: GABAPENTIN 600 MG TABLET PO SCH ×3 (13:15→21:34)
[2021-04-04 15:09] LABS: Bacteria,Urine Occasional /HPF (Few); Bilirubin,Urine Negative (Negative); Blood, Urine Moderate mg/dL (Negative); Glucose,Urine (UA) >=500 mg/dL (Negative); Ketones,Urine Negative (Negative); Mucus,Urine Occasional /LPF (Occasional); Nitrite,Urine Negative (Negative); Protein,Urine 30 MG/DL; RBC,Urine 68 /HPF (0-4); Squamous Epithelial Cell,Urine Occasional /HPF (0-10); Urine Appearance CLEAR (Clear); Urine Color Yellow (Yellow); Urine Specific Gravity 1.042 (1.001-1.035); Urine Urobilinogen < 2.0 EU/DL (0.2-1.0)
[2021-04-04] MEDS: BUDESONIDE/FORMOTEROL 160-4.5 INHALER 6 GM INH SCH ×2 (15:18→21:39)
[2021-04-04] MEDS: FUROSEMIDE 40 MG/4 ML VIAL IV SCH (16:06)
[2021-04-04] MEDS: carvediloL 12.5 MG TABLET PO SCH (16:08)
[2021-04-04] MEDS: LEVOFLOXACIN INJ 500 MG/100 ML PREMIX IV SCH (21:34)
[2021-04-04] MEDS: tiZANidine 4 MG TABLET PO SCH (21:34)
[2021-04-04] MEDS: ONDANSETRON 4 MG/2 ML VIAL IV PRN (21:45)
[2021-04-05] MEDS: INSULIN REGULAR 100 UNIT/ML SUBCUT SCH ×4 (00:20→17:41)
[2021-04-05] MEDS: ACETAMINOPHEN 325 MG TABLET PO PRN (00:22)
[2021-04-05] MEDS: methylPREDNISolone SOD SUC 40 MG/1 ML VIAL IV SCH ×3 (03:26→14:42)
[2021-04-05 05:26] LABS: Basophils % 0.1 % (0.0-0.8); Hematocrit 35.8 VOL% (35.7-47.0); Hemoglobin 11.3 GM/DL (12.0-16.0); Immature Granulocytes % 0.9 %; Immature Granulocytes Absolute 0.09 #; Lymphocytes % 10.4 % (21.3-54.2); Mean Corpuscular HGB Conc 31.6 GM/DL (32-36); Mean Corpuscular Volume 90.4 FL (87-102); Mean Platelet Volume 11.6 FL (9.6-12.0); Monocytes % 3.3 % (1.7-12.7); Neutrophils % 85.3 % (38.7-73.9); Platelet Count 186 T/CUMM (130-400); Red Blood Count 3.96 MC/CUMM (3.8-5.5); Red Cell Distribution Width 14.5 % (9.3-17.3)
[2021-04-05 05:42] LABS: Alanine Aminotransferase 22 U/L (13-56); Albumin 3.2 G/DL (3.4-5.0); Alkaline Phosphatase 111 U/L (45-117); Aspartate Amino Transferase 11 U/L (0-37); Bilirubin,Total < 0.39 MG/DL (0.20-1.00); Blood Urea Nitrogen 23 MG/DL (7-18); Carbon Dioxide 25 MMOL/L (21-32); Estimated Glom Filtration Rate 61 ML/MIN; Glucose 275 MG/DL (74-106); Osmolality,Calculated 286.8 MOS/KG (273-304); Potassium 3.5 MMOL/L (3.5-5.1); Sodium 137 MMOL/L (136-145); Total Protein 6.4 G/DL (6.4-8.2)
[2021-04-05 05:51] LABS: White Blood Count 9.5 T/CUMM (4-12)
[2021-04-05] MEDS: GABAPENTIN 600 MG TABLET PO SCH ×4 (08:34→21:21)
[2021-04-05] MEDS: PANTOPRAZOLE 40 MG TABLET PO SCH (08:34)
[2021-04-05] MEDS: tiZANidine 4 MG TABLET PO SCH ×2 (08:34→21:21)
[2021-04-05] MEDS: carvediloL 12.5 MG TABLET PO SCH ×2 (08:34→16:26)
[2021-04-05] MEDS: CHOLECALCIFEROL 5,000 UNIT TABLET PO SCH (08:34)
[2021-04-05] MEDS: ONDANSETRON 4 MG/2 ML VIAL IV PRN (08:40)
[2021-04-05] MEDS: BUDESONIDE/FORMOTEROL 160-4.5 INHALER 6 GM INH SCH ×2 (08:43→21:20)
[2021-04-05] MEDS: FUROSEMIDE 40 MG/4 ML VIAL IV SCH (09:52)
[2021-04-05] MEDS ORDERED: guaiFENesin/CODEINE 5 ML LIQUID PO PRN (14:43)
[2021-04-05] MEDS ORDERED: NALOXONE 0.4 MG/ML VIAL IV PRN (14:57)
[2021-04-05] MEDS: MORPHINE 2 MG/1 ML SYRINGE IV PRN ×2 (16:26→22:21)
[2021-04-05] MEDS ORDERED: HEPARIN LOCK FLUSH 500 UNIT/5 ML SYRINGE IV PRN (17:58)
[2021-04-05 19:59] LABS: Bilirubin,Urine Negative (Negative); Blood, Urine Large mg/dL (Negative); Glucose,Urine (UA) Negative (Negative); Ketones,Urine Negative (Negative); Nitrite,Urine Negative (Negative); Protein,Urine 100 MG/DL; RBC,Urine 5654 /HPF (0-4); Urine Appearance CLOUDY (Clear); Urine Color Red (Yellow); Urine Specific Gravity 1.024 (1.001-1.035); Urine Urobilinogen < 2.0 EU/DL (0.2-1.0)
[2021-04-05] MEDS: LEVOFLOXACIN INJ 500 MG/100 ML PREMIX IV SCH (21:19)
[2021-04-05] MEDS: HEPARIN LOCK FLUSH 500 UNIT/5 ML SYRINGE IV SCH (22:25)
[2021-04-06] MEDS: INSULIN REGULAR 100 UNIT/ML SUBCUT SCH ×5 (00:08→21:14)
[2021-04-06] MEDS: methylPREDNISolone SOD SUC 40 MG/1 ML VIAL IV SCH ×2 (00:08→12:31)
[2021-04-06] MEDS: MORPHINE 2 MG/1 ML SYRINGE IV PRN ×3 (05:05→18:38)
[2021-04-06] MEDS: ONDANSETRON 4 MG/2 ML VIAL IV PRN ×2 (05:07→23:31)
[2021-04-06 06:21] LABS: Basophils % 0.2 % (0.0-0.8); Hematocrit 39.3 VOL% (35.7-47.0); Hemoglobin 12.5 GM/DL (12.0-16.0); Immature Granulocytes % 1.2 %; Immature Granulocytes Absolute 0.16 #; Lymphocytes # 1.1 10*3/uL (1.4-4.0); Lymphocytes % 8.5 % (21.3-54.2); Mean Corpuscular HGB Conc 31.8 GM/DL (32-36); Mean Corpuscular Volume 92.3 FL (87-102); Mean Platelet Volume 11.4 FL (9.6-12.0); Monocytes % 4.3 % (1.7-12.7); Neutrophils % 85.8 % (38.7-73.9); Platelet Count 218 T/CUMM (130-400); Red Blood Count 4.26 MC/CUMM (3.8-5.5); Red Cell Distribution Width 14.7 % (9.3-17.3); White Blood Count 13.1 T/CUMM (4-12)
[2021-04-06 06:40] LABS: Albumin 3.2 G/DL (3.4-5.0); Bilirubin,Total 0.5 MG/DL (0.20-1.00); Calcium 8.3 MG/DL (8.5-10.1); Osmolality,Calculated 288.4 MOS/KG (273-304); Potassium 3.5 MMOL/L (3.5-5.1); Total Protein 6.6 G/DL (6.4-8.2)
[2021-04-06] MEDS: CHOLECALCIFEROL 5,000 UNIT TABLET PO SCH (09:38)
[2021-04-06] MEDS: tiZANidine 4 MG TABLET PO SCH ×2 (09:38→21:12)
[2021-04-06] MEDS: PANTOPRAZOLE 40 MG TABLET PO SCH (09:38)
[2021-04-06] MEDS: GABAPENTIN 600 MG TABLET PO SCH ×4 (09:38→21:12)
[2021-04-06] MEDS: carvediloL 12.5 MG TABLET PO SCH ×2 (09:38→16:54)
[2021-04-06] MEDS: HEPARIN LOCK FLUSH 500 UNIT/5 ML SYRINGE IV SCH ×2 (09:38→21:11)
[2021-04-06] MEDS: BUDESONIDE/FORMOTEROL 160-4.5 INHALER 6 GM INH SCH ×2 (09:39→21:21)
[2021-04-06] MEDS: FUROSEMIDE 40 MG/4 ML VIAL IV SCH (09:39)
[2021-04-06] MEDS: BENZONATATE 100 MG CAPSULE PO PRN (09:39)
[2021-04-06] MEDS: LEVOFLOXACIN 500 MG TABLET PO SCH (14:57)
[2021-04-06] MEDS: SODIUM CHLORIDE 0.45% 1,000 ML IV SCH (18:38)
[2021-04-07] MEDS: methylPREDNISolone SOD SUC 40 MG/1 ML VIAL IV SCH ×2 (00:48→12:07)
[2021-04-07] MEDS: MORPHINE 2 MG/1 ML SYRINGE IV PRN ×3 (03:43→22:40)
[2021-04-07 06:01] LABS: Basophils % 0.2 % (0.0-0.8); Hematocrit 41.6 VOL% (35.7-47.0); Hemoglobin 12.9 GM/DL (12.0-16.0); Lymphocytes # 1.1 10*3/uL (1.4-4.0); Lymphocytes % 8.5 % (21.3-54.2); Mean Corpuscular Volume 92.4 FL (87-102); Mean Platelet Volume 11.1 FL (9.6-12.0); Monocytes % 2.9 % (1.7-12.7); Neutrophils % 85.4 % (38.7-73.9); Platelet Count 240 T/CUMM (130-400); White Blood Count 13.3 T/CUMM (4-12)
[2021-04-07 06:23] LABS: Albumin 3.3 G/DL (3.4-5.0); Bilirubin,Total 0.5 MG/DL (0.20-1.00); Calcium 7.9 MG/DL (8.5-10.1); Osmolality,Calculated 296.4 MOS/KG (273-304); Potassium 3.4 MMOL/L (3.5-5.1); Total Protein 6.9 G/DL (6.4-8.2)
[2021-04-07] MEDS: CHOLECALCIFEROL 5,000 UNIT TABLET PO SCH (09:05)
[2021-04-07] MEDS: GABAPENTIN 600 MG TABLET PO SCH ×4 (09:06→20:37)
[2021-04-07] MEDS: tiZANidine 4 MG TABLET PO SCH ×2 (09:06→20:38)
[2021-04-07] MEDS: carvediloL 12.5 MG TABLET PO SCH ×2 (09:06→16:25)
[2021-04-07] MEDS: PANTOPRAZOLE 40 MG TABLET PO SCH (09:06)
[2021-04-07] MEDS: LEVOFLOXACIN 500 MG TABLET PO SCH (09:06)
[2021-04-07] MEDS: FUROSEMIDE 40 MG/4 ML VIAL IV SCH (09:06)
[2021-04-07] MEDS: INSULIN REGULAR 100 UNIT/ML SUBCUT SCH ×4 (09:07→20:39)
[2021-04-07] MEDS: BUDESONIDE/FORMOTEROL 160-4.5 INHALER 6 GM INH SCH ×2 (09:08→20:39)
[2021-04-07] MEDS: HEPARIN LOCK FLUSH 500 UNIT/5 ML SYRINGE IV SCH ×2 (09:08→20:38)
[2021-04-07] MEDS: ONDANSETRON 4 MG/2 ML VIAL IV PRN (11:07)
[2021-04-07] MEDS: SODIUM CHLORIDE 0.45% 1,000 ML IV SCH ×2 (15:15→22:45)
[2021-04-08] MEDS: methylPREDNISolone SOD SUC 40 MG/1 ML VIAL IV SCH (01:22)
[2021-04-08] MEDS: ONDANSETRON 4 MG/2 ML VIAL IV PRN (02:18)
[2021-04-08] MEDS ORDERED: LIDOCAINE 2% TOP JELLY 20 ML VIAL INTRAURETH ONE (06:25)
[2021-04-08] MEDS ORDERED: propofoL 200 MG/20 ML VIAL IV ONE (07:07)
[2021-04-08] MEDS ORDERED: fentaNYL 100 MCG/2 ML VIAL ONE (07:07)
[2021-04-08] MEDS ORDERED: LIDOCAINE 2% 5 ML VIAL ONE (07:07)
[2021-04-08] MEDS ORDERED: MIDAZOLAM 2 MG/2 ML VIAL ONE ×2 (07:07)
[2021-04-08] MEDS ORDERED: LACTATED RINGERS 1,000 ML IV SCH (07:30)
[2021-04-08] MEDS ORDERED: MEPERIDINE 50 MG/1 ML VIAL IM ONE (08:00)
[2021-04-08] MEDS ORDERED: PROMETHAZINE 25 MG/1 ML VIAL IM ONE (08:00)
[2021-04-08 08:11] VITALS: BP 137/79
[2021-04-08] MEDS: INSULIN REGULAR 100 UNIT/ML SUBCUT SCH (08:57)
[2021-04-08] MEDS: CHOLECALCIFEROL 5,000 UNIT TABLET PO SCH (09:06)
[2021-04-08] MEDS: FUROSEMIDE 40 MG/4 ML VIAL IV SCH (09:06)
[2021-04-08] MEDS: carvediloL 12.5 MG TABLET PO SCH (09:06)
[2021-04-08] MEDS: GABAPENTIN 600 MG TABLET PO SCH (09:06)
[2021-04-08] MEDS: tiZANidine 4 MG TABLET PO SCH (09:06)
[2021-04-08] MEDS: PANTOPRAZOLE 40 MG TABLET PO SCH (09:06)
[2021-04-08] MEDS: LEVOFLOXACIN 500 MG TABLET PO SCH (09:06)
[2021-04-08] MEDS: MORPHINE 2 MG/1 ML SYRINGE IV PRN (09:07)
[2021-04-08] MEDS: BUDESONIDE/FORMOTEROL 160-4.5 INHALER 6 GM INH SCH (09:08)
[2021-04-08] MEDS: HEPARIN LOCK FLUSH 500 UNIT/5 ML SYRINGE IV SCH (09:08)
[2021-04-08 10:07] LABS: Hematocrit 40.5 VOL% (35.7-47.0); Hemoglobin 12.3 GM/DL (12.0-16.0)
[2021-04-08 10:08] LABS: Basophils % 0.2 % (0.0-0.8); Hematocrit 40.1 VOL% (35.7-47.0); Hemoglobin 12.2 GM/DL (12.0-16.0); Immature Granulocytes % 5.1 %; Immature Granulocytes Absolute 0.53 #; Lymphocytes # 1.3 10*3/uL (1.4-4.0); Lymphocytes % 12.5 % (21.3-54.2); Mean Corpuscular HGB Conc 30.4 GM/DL (32-36); Mean Platelet Volume 11.1 FL (9.6-12.0); Monocytes % 4.4 % (1.7-12.7); NRBC # 0.02 10*3/uL; Neutrophils % 77.8 % (38.7-73.9); Platelet Count 211 T/CUMM (130-400); Red Blood Count 4.31 MC/CUMM (3.8-5.5); White Blood Count 10.3 T/CUMM (4-12)
[2021-04-08 10:25] LABS: Calcium 7.5 MG/DL (8.5-10.1); Osmolality,Calculated 291.4 MOS/KG (273-304); Potassium 3.7 MMOL/L (3.5-5.1)
[2021-04-08 10:43] LABS: Band Neutrophils 1 % (0-10); Lymphocytes 13 % (20-55); Metamyelocytes 2 %; Nucleated Red Blood Cells 1 (0-5); Platelet Estimate Adequate; Segmented Neutrophils 79 % (50-85); Total Cells Counted 100
== END 2021-04-08 12:57 | disposition home health service (06) | DRG 194 ==
LOC: N.ED 16:08 → N.EDINP 20:25 → N.5E 23:35
PROVIDERS: ADMIT Family Medicine; ATTEND Family Medicine

== ENCOUNTER 2021-04-10 12:24 | Inpatient (IN) ==
[2021-04-10] MEDS ORDERED: LACTATED RINGERS 1,000 ML IV ONE (14:25)
[2021-04-10 14:45] LABS: Basophils % 0.2 % (0.0-0.8); Eosinophils # 0.1 10*3/uL (0.0-0.87); Hematocrit 40.6 VOL% (35.7-47.0); Hemoglobin 12.8 GM/DL (12.0-16.0); Immature Granulocytes % 2.8 %; Immature Granulocytes Absolute 0.39 #; Lymphocytes # 2.1 10*3/uL (1.4-4.0); Lymphocytes % 15.2 % (21.3-54.2); Mean Corpuscular HGB Conc 31.5 GM/DL (32-36); Mean Platelet Volume 10.6 FL (9.6-12.0); Monocytes % 6.1 % (1.7-12.7); NRBC # 0.02 10*3/uL; Neutrophils % 74.7 % (38.7-73.9); Platelet Count 215 T/CUMM (130-400); Red Blood Count 4.56 MC/CUMM (3.8-5.5); Red Cell Distribution Width 15.2 % (9.3-17.3)
[2021-04-10 14:59] LABS: Calcium 8.2 MG/DL (8.5-10.1); Osmolality,Calculated 287.1 MOS/KG (273-304)
[2021-04-10] MEDS ORDERED: ONDANSETRON 4 MG/2 ML VIAL IV STA (14:59)
[2021-04-10] MEDS ORDERED: ACETAMINOPHEN 325 MG TABLET PO PRN (15:52)
[2021-04-10] MEDS ORDERED: DICLOFENAC SODIUM 75 MG TABLET PO PRN (15:55)
[2021-04-10] MEDS ORDERED: BENZONATATE 100 MG CAPSULE PO PRN (15:55)
[2021-04-10] MEDS: MORPHINE 2 MG/1 ML SYRINGE IV PRN (16:22)
[2021-04-10] MEDS: ONDANSETRON 4 MG/2 ML VIAL IV PRN (16:23)
[2021-04-10] MEDS: LACTATED RINGERS 1,000 ML IV SCH (18:14)
[2021-04-10] MEDS: GABAPENTIN 600 MG TABLET PO SCH ×2 (18:17→20:48)
[2021-04-10] MEDS: carvediloL 12.5 MG TABLET PO SCH (18:17)
[2021-04-10] MEDS: ENOXAPARIN 40 MG/0.4 ML SYRINGE SUBCUT SCH (20:48)
[2021-04-10] MEDS: BUDESONIDE/FORMOTEROL 160-4.5 INHALER 6 GM INH SCH (20:49)
[2021-04-11] MEDS: LACTATED RINGERS 1,000 ML IV SCH ×3 (00:46→20:37)
[2021-04-11] MEDS: MORPHINE 2 MG/1 ML SYRINGE IV PRN ×5 (01:11→20:37)
[2021-04-11 06:04] LABS: Calcium 7.9 MG/DL (8.5-10.1); Potassium 3.8 MMOL/L (3.5-5.1)
[2021-04-11] MEDS: ONDANSETRON 4 MG/2 ML VIAL IV PRN ×3 (06:46→20:37)
[2021-04-11] MEDS: carvediloL 12.5 MG TABLET PO SCH ×2 (08:36→16:30)
[2021-04-11] MEDS: GABAPENTIN 600 MG TABLET PO SCH ×4 (08:36→20:37)
[2021-04-11] MEDS: CHOLECALCIFEROL 1,000 UNIT TABLET PO SCH (08:36)
[2021-04-11] MEDS: BUDESONIDE/FORMOTEROL 160-4.5 INHALER 6 GM INH SCH ×2 (08:37→20:38)
[2021-04-11] MEDS: PANTOPRAZOLE 40 MG TABLET PO SCH (08:37)
[2021-04-11] MEDS ORDERED: ERGOCALCIFEROL 50,000 UNIT CAPSULE PO SCH (09:00)
[2021-04-11] MEDS ORDERED: FUROSEMIDE 80 MG TABLET PO SCH (09:00)
[2021-04-11] MEDS ORDERED: methylPREDNISolone SOD SUC 40 MG/1 ML VIAL IV SCH (14:00)
[2021-04-11] MEDS: LEVOFLOXACIN INJ 500 MG/100 ML PREMIX IV SCH (14:32)
[2021-04-11] MEDS ORDERED: HEPARIN LOCK FLUSH 500 UNIT/5 ML SYRINGE IV ONE (15:00)
[2021-04-11] MEDS: ALBUTEROL/IPRATROPIUM 3 ML NEB RESP TX SCH ×2 (15:18→19:12)
[2021-04-11] MEDS: NYSTATIN 500,000 UNIT/5 ML UDCUP SWISH/SWAL SCH ×2 (16:31→20:37)
[2021-04-11] MEDS: ENOXAPARIN 40 MG/0.4 ML SYRINGE SUBCUT SCH (20:36)
[2021-04-11] MEDS: DESITIN 4OZ/NYSTATIN 15 GRAM MIXTURE PASTE TOP SCH (21:36)
[2021-04-11] MEDS: methylPREDNISolone SOD SUC 40 MG/1 ML VIAL IV SCH (21:37)
[2021-04-12] MEDS: ALBUTEROL/IPRATROPIUM 3 ML NEB RESP TX SCH ×4 (00:09→10:30)
[2021-04-12] MEDS: MORPHINE 2 MG/1 ML SYRINGE IV PRN ×6 (01:06→21:21)
[2021-04-12] MEDS: LACTATED RINGERS 1,000 ML IV SCH ×2 (04:42→19:19)
[2021-04-12] MEDS: ONDANSETRON 4 MG/2 ML VIAL IV PRN ×2 (04:59→09:48)
[2021-04-12] MEDS: methylPREDNISolone SOD SUC 40 MG/1 ML VIAL IV SCH ×3 (05:00→21:26)
[2021-04-12 05:37] LABS: Basophils % 0.2 % (0.0-0.8); Hematocrit 39.6 VOL% (35.7-47.0); Hemoglobin 12.2 GM/DL (12.0-16.0); Immature Granulocytes Absolute 0.44 #; Lymphocytes # 0.7 10*3/uL (1.4-4.0); Lymphocytes % 6.3 % (21.3-54.2); Mean Corpuscular HGB Conc 30.8 GM/DL (32-36); Mean Corpuscular Volume 91.2 FL (87-102); Mean Platelet Volume 11.5 FL (9.6-12.0); Monocytes % 1.5 % (1.7-12.7); Platelet Count 188 T/CUMM (130-400); Red Blood Count 4.34 MC/CUMM (3.8-5.5); Red Cell Distribution Width 14.9 % (9.3-17.3)
[2021-04-12 06:09] LABS: Bilirubin,Total 0.8 MG/DL (0.20-1.00); Calcium 8.2 MG/DL (8.5-10.1); Osmolality,Calculated 287.4 MOS/KG (273-304); Potassium 3.6 MMOL/L (3.5-5.1); Total Protein 6.2 G/DL (6.4-8.2)
[2021-04-12] MEDS ORDERED: FUROSEMIDE 40 MG TABLET PO SCH (09:00)
[2021-04-12] MEDS: GABAPENTIN 600 MG TABLET PO SCH ×4 (09:47→21:35)
[2021-04-12] MEDS: CHOLECALCIFEROL 1,000 UNIT TABLET PO SCH (09:47)
[2021-04-12] MEDS: NYSTATIN 500,000 UNIT/5 ML UDCUP SWISH/SWAL SCH ×4 (09:48→21:33)
[2021-04-12] MEDS: carvediloL 12.5 MG TABLET PO SCH ×2 (09:48→17:09)
[2021-04-12] MEDS: PANTOPRAZOLE 40 MG TABLET PO SCH (09:48)
[2021-04-12] MEDS: BUDESONIDE/FORMOTEROL 160-4.5 INHALER 6 GM INH SCH ×2 (09:54→21:32)
[2021-04-12] MEDS: DESITIN 4OZ/NYSTATIN 15 GRAM MIXTURE PASTE TOP SCH ×2 (09:54→21:36)
[2021-04-12] MEDS ORDERED: GLUCAGON 1 MG VIAL IM PRN (12:58)
[2021-04-12] MEDS ORDERED: DEXTROSE 50% 25 GM/50 ML VIAL IV PRN (12:58)
[2021-04-12] MEDS ORDERED: ALBUTEROL/IPRATROPIUM 3 ML NEB RESP TX PRN (13:00)
[2021-04-12] MEDS: LEVOFLOXACIN INJ 500 MG/100 ML PREMIX IV SCH (14:10)
[2021-04-12] MEDS ORDERED: PROMETHAZINE INJ 12.5 MG in SODIUM CHLORIDE 0.9% 50 ML IV PRN (16:22)
[2021-04-12] MEDS: INSULIN LISPRO 100 UNIT/ML SUBCUT SCH ×2 (17:09→22:24)
[2021-04-12] MEDS: ENOXAPARIN 40 MG/0.4 ML SYRINGE SUBCUT SCH (21:20)
[2021-04-12] MEDS ORDERED: PROMETHAZINE INJ 12.5 MG in SODIUM CHLORIDE 0.9% 50 ML IV SCH (22:00)
[2021-04-13] MEDS: MORPHINE 2 MG/1 ML SYRINGE IV PRN ×2 (01:32→06:22)
[2021-04-13] MEDS: methylPREDNISolone SOD SUC 40 MG/1 ML VIAL IV SCH ×2 (05:50→15:12)
[2021-04-13] MEDS: INSULIN LISPRO 100 UNIT/ML SUBCUT SCH ×2 (08:49→12:26)
[2021-04-13] MEDS: CHOLECALCIFEROL 1,000 UNIT TABLET PO SCH (08:50)
[2021-04-13] MEDS: carvediloL 12.5 MG TABLET PO SCH (08:50)
[2021-04-13] MEDS: PANTOPRAZOLE 40 MG TABLET PO SCH (08:50)
[2021-04-13] MEDS: GABAPENTIN 600 MG TABLET PO SCH ×2 (08:50→12:27)
[2021-04-13] MEDS: NYSTATIN 500,000 UNIT/5 ML UDCUP SWISH/SWAL SCH ×2 (08:51→12:27)
[2021-04-13] MEDS: BUDESONIDE/FORMOTEROL 160-4.5 INHALER 6 GM INH SCH (08:52)
[2021-04-13] MEDS: DESITIN 4OZ/NYSTATIN 15 GRAM MIXTURE PASTE TOP SCH (08:56)
[2021-04-13] MEDS ORDERED: FUROSEMIDE 40 MG/4 ML VIAL IV SCH (09:00)
[2021-04-13 09:50] LABS: Basophils % 0.2 % (0.0-0.8); Hemoglobin 11.3 GM/DL (12.0-16.0); Immature Granulocytes % 3.9 %; Immature Granulocytes Absolute 0.62 #; Lymphocytes # 0.8 10*3/uL (1.4-4.0); Lymphocytes % 5.2 % (21.3-54.2); Mean Corpuscular HGB Conc 30.5 GM/DL (32-36); Mean Corpuscular Volume 91.4 FL (87-102); Mean Platelet Volume 11.1 FL (9.6-12.0); Monocytes % 2.2 % (1.7-12.7); Neutrophils % 88.5 % (38.7-73.9); Platelet Count 176 T/CUMM (130-400); Red Blood Count 4.05 MC/CUMM (3.8-5.5); Red Cell Distribution Width 15.1 % (9.3-17.3); White Blood Count 15.8 T/CUMM (4-12)
[2021-04-13 10:09] LABS: Albumin 2.8 G/DL (3.4-5.0); Bilirubin,Total 0.6 MG/DL (0.20-1.00); Calcium 8.2 MG/DL (8.5-10.1); Hypochromasia Slight; Lymphocytes 3 % (20-55); Osmolality,Calculated 293.5 MOS/KG (273-304); Platelet Estimate Adequate; Potassium 3.5 MMOL/L (3.5-5.1); Segmented Neutrophils 96 % (50-85); Total Cells Counted 100; Total Protein 5.9 G/DL (6.4-8.2)
[2021-04-13 12:00] VITALS: BP 149/54
[2021-04-13] MEDS: ONDANSETRON 4 MG/2 ML VIAL IV PRN (13:15)
[2021-04-13] MEDS ORDERED: HEPARIN LOCK FLUSH 500 UNIT/5 ML SYRINGE IV PRN (14:32)
[2021-04-13] MEDS: LEVOFLOXACIN INJ 500 MG/100 ML PREMIX IV SCH (15:11)
== END 2021-04-13 15:30 | disposition home health service (06) | DRG 190 ==
LOC: N.EDINP 12:24 → N.ED 12:24 → N.3E 16:39
PROVIDERS: ADMIT Family Medicine; ATTEND Family Medicine

== ENCOUNTER 2022-01-14 10:32 | Inpatient (IN) ==
[2022-01-14] MEDS ORDERED: ALBUTEROL 2.5 MG/3 ML NEB RESP TX STA ×2 (11:03→13:51)
[2022-01-14] MEDS ORDERED: MORPHINE 2 MG/1 ML SYRINGE IV ONE (11:03)
[2022-01-14] MEDS ORDERED: ALBUTEROL/IPRATROPIUM 3 ML NEB RESP TX STA (11:03)
[2022-01-14] MEDS ORDERED: ASPIRIN 325 MG TABLET PO STA (11:03)
[2022-01-14] MEDS ORDERED: methylPREDNISolone SOD SUC 125 MG/2 ML VIAL IV STA (11:03)
[2022-01-14] MEDS ORDERED: ONDANSETRON 4 MG/2 ML VIAL IV ONE (11:03)
[2022-01-14] MEDS ORDERED: SODIUM CHLORIDE 0.9% 1,000 ML IV STA (11:03)
[2022-01-14 11:51] LABS: Basophils # 0.1 10*3/uL (0.0-0.2); Eosinophils # 0.3 10*3/uL (0.0-0.87); Eosinophils % 6.9 % (0.00-10.9); Hematocrit 41.5 VOL% (35.7-47.0); Hemoglobin 13.3 GM/DL (12.0-16.0); Immature Granulocytes % 0.8 %; Immature Granulocytes Absolute 0.04 #; Lymphocytes # 1.1 10*3/uL (1.4-4.0); Lymphocytes % 23.3 % (21.3-54.2); Mean Corpuscular Volume 91.4 FL (87-102); Mean Platelet Volume 10.9 FL (9.6-12.0); Monocytes # 0.5 10*3/uL (0.11-0.8); Platelet Count 153 T/CUMM (130-400); Red Blood Count 4.54 MC/CUMM (3.8-5.5); Red Cell Distribution Width 14.6 % (9.3-17.3); White Blood Count 4.8 T/CUMM (4-12)
[2022-01-14 12:00] LABS: INR 0.9; PT Patient Result 10.3 SECS (10.5-12.0)
[2022-01-14 12:20] LABS: Albumin 3.1 G/DL (3.4-5.0); Bilirubin,Total 0.7 MG/DL (0.20-1.00); Calcium 8.4 MG/DL (8.5-10.1); Osmolality,Calculated 283.1 MOS/KG (273-304); Potassium 3.5 MMOL/L (3.5-5.1); Total Protein 6.4 G/DL (6.4-8.2)
[2022-01-14] MEDS ORDERED: ACETAMINOPHEN 325 MG TABLET PO ONE (12:30)
[2022-01-14] MEDS ORDERED: PROMETHAZINE 25 MG/1 ML VIAL IM STA ×2 (12:30→13:53)
[2022-01-14 12:45] LABS: Bacteria,Urine Few /HPF (Few); Mucus,Urine Moderate /LPF (Occasional); RBC,Urine 2 /HPF (0-4); Squamous Epithelial Cell,Urine Occasional /HPF (0-10); Urine Appearance Clear (Clear); Urine Color Yellow (Yellow)
[2022-01-14 12:46] LABS: Bilirubin,Urine Moderate mg/dL (Negative); Blood, Urine Negative (Negative); Glucose,Urine (UA) Negative (Negative); Ketones,Urine 15 mg/dL (Negative); Nitrite,Urine Negative (Negative); Protein,Urine 30 mg/dL (Negative); Urine Specific Gravity 1.025 (1.001-1.035)
[2022-01-14 13:37] LABS: Arterial Base Excess iSTAT -3 MMOL/L (-2.5-2.5); Arterial Bicarbonate iSTAT 21.9 MMOL/L (20-26); Arterial O2 Saturation iSTAT 95 % (95-100); Arterial PCO2 iSTAT 39 MM HG (35-48); Arterial PO2 iSTAT 76 MM HG (80-95); Arterial Total CO2 iSTAT 23 MMO/L (23-27); Arterial pH iSTAT 7.361 (7.35-7.45)
[2022-01-14] MEDS ORDERED: LEVOFLOXACIN INJ 750 MG/150 ML PREMIX IV STA (13:40)
[2022-01-14] MEDS: SODIUM CHLORIDE 0.9% 1,000 ML IV SCH (16:06)
[2022-01-14] MEDS: ACETAMINOPHEN 325 MG TABLET PO PRN (16:51)
[2022-01-14] MEDS ORDERED: KETOROLAC 15 MG/1 ML VIAL IV PRN (17:22)
[2022-01-14] MEDS: PROMETHAZINE 25 MG TABLET PO PRN (18:04)
[2022-01-14] MEDS: ALBUTEROL 2.5 MG/3 ML NEB RESP TX SCH ×2 (20:45→23:44)
[2022-01-14] MEDS: DOCUSATE SODIUM 100 MG CAPSULE PO SCH (21:41)
[2022-01-14] MEDS: ONDANSETRON 4 MG/2 ML VIAL IV PRN (21:42)
[2022-01-14] MEDS: carvediloL 6.25 MG TABLET PO SCH (21:42)
[2022-01-14] MEDS: tiZANidine 4 MG TABLET PO SCH (21:42)
[2022-01-14] MEDS: GABAPENTIN 600 MG TABLET PO SCH (21:43)
[2022-01-14] MEDS: methylPREDNISolone SOD SUC 40 MG/1 ML VIAL IV SCH (21:44)
[2022-01-14] MEDS: ENOXAPARIN 40 MG/0.4 ML SYRINGE SUBCUT SCH (21:44)
[2022-01-14] MEDS: metFORMIN 500 MG TABLET PO SCH (21:45)
[2022-01-15] MEDS: ONDANSETRON 4 MG/2 ML VIAL IV PRN ×3 (03:11→21:28)
[2022-01-15] MEDS: NON-FORMULARY MEDICATION (Budesonide-Glycopyr-Formoterol [Breztri Aerosphere] 160-9-4.8 mc INH SCH ×2 (03:32→09:53)
[2022-01-15] MEDS: ALBUTEROL 2.5 MG/3 ML NEB RESP TX SCH ×5 (03:37→19:40)
[2022-01-15 06:00] LABS: Basophils % 0.6 % (0.0-0.8); Eosinophils % 0.6 % (0.00-10.9); Hematocrit 39.3 VOL% (35.7-47.0); Hemoglobin 12.7 GM/DL (12.0-16.0); Immature Granulocytes % 1.2 %; Immature Granulocytes Absolute 0.04 #; Lymphocytes # 0.6 10*3/uL (1.4-4.0); Lymphocytes % 17.2 % (21.3-54.2); Mean Corpuscular HGB Conc 32.3 GM/DL (32-36); Mean Corpuscular Volume 91.4 FL (87-102); Mean Platelet Volume 11.7 FL (9.6-12.0); Monocytes # 0.1 10*3/uL (0.11-0.8); Monocytes % 2.6 % (1.7-12.7); Neutrophils % 77.8 % (38.7-73.9); Platelet Count 153 T/CUMM (130-400); Red Cell Distribution Width 14.6 % (9.3-17.3); White Blood Count 3.4 T/CUMM (4-12)
[2022-01-15 06:48] LABS: Alanine Aminotransferase 42 U/L (13-56); Albumin 2.9 G/DL (3.4-5.0); Alkaline Phosphatase 98 U/L (45-117); Aspartate Amino Transferase 19 U/L (0-37); Bilirubin,Total < 0.39 MG/DL (0.20-1.00); Blood Urea Nitrogen 15 MG/DL (7-18); Calcium 8.2 MG/DL (8.5-10.1); Carbon Dioxide 23 MMOL/L (21-32); Chloride 113 MMOL/L (98-107); Glucose 157 MG/DL (74-106); Osmolality,Calculated 284.3 MOS/KG (273-304); Potassium 4.4 MMOL/L (3.5-5.1); Sodium 141 MMOL/L (136-145)
[2022-01-15] MEDS ORDERED: BUTALBITAL/ACETAMIN/CAFFEINE 50-325-40 MG TABLET PO ONE (09:37)
[2022-01-15] MEDS: carvediloL 6.25 MG TABLET PO SCH ×2 (09:45→21:28)
[2022-01-15] MEDS: methylPREDNISolone SOD SUC 40 MG/1 ML VIAL IV SCH ×2 (09:45→21:33)
[2022-01-15] MEDS: PANTOPRAZOLE 40 MG TABLET PO SCH (09:46)
[2022-01-15] MEDS: metFORMIN 500 MG TABLET PO SCH ×2 (09:46→21:27)
[2022-01-15] MEDS: tiZANidine 4 MG TABLET PO SCH ×2 (09:46→21:27)
[2022-01-15] MEDS: GABAPENTIN 600 MG TABLET PO SCH ×4 (09:46→21:28)
[2022-01-15] MEDS: FUROSEMIDE 80 MG TABLET PO SCH (09:46)
[2022-01-15] MEDS: DOCUSATE SODIUM 100 MG CAPSULE PO SCH ×2 (09:46→21:27)
[2022-01-15] MEDS: SODIUM CHLORIDE 0.9% 1,000 ML IV SCH (09:47)
[2022-01-15] MEDS: PROMETHAZINE 25 MG TABLET PO PRN (17:14)
[2022-01-15] MEDS: ACETAMINOPHEN 325 MG TABLET PO PRN ×2 (17:18→22:30)
[2022-01-15] MEDS: ENOXAPARIN 40 MG/0.4 ML SYRINGE SUBCUT SCH (21:29)
[2022-01-16] MEDS: ALBUTEROL 2.5 MG/3 ML NEB RESP TX SCH ×7 (00:16→23:45)
[2022-01-16] MEDS: ACETAMINOPHEN 325 MG TABLET PO PRN ×2 (04:29→15:23)
[2022-01-16] MEDS: NON-FORMULARY MEDICATION (Budesonide-Glycopyr-Formoterol [Breztri Aerosphere] 160-9-4.8 mc INH SCH ×3 (06:25→21:22)
[2022-01-16] MEDS: SODIUM CHLORIDE 0.9% 1,000 ML IV SCH ×3 (06:25→22:24)
[2022-01-16] MEDS: methylPREDNISolone SOD SUC 40 MG/1 ML VIAL IV SCH ×2 (08:38→21:22)
[2022-01-16] MEDS: metFORMIN 500 MG TABLET PO SCH ×2 (08:38→21:22)
[2022-01-16] MEDS: carvediloL 6.25 MG TABLET PO SCH ×2 (08:39→21:22)
[2022-01-16] MEDS: tiZANidine 4 MG TABLET PO SCH ×2 (08:39→21:23)
[2022-01-16] MEDS: FUROSEMIDE 80 MG TABLET PO SCH (08:39)
[2022-01-16] MEDS: PANTOPRAZOLE 40 MG TABLET PO SCH (08:39)
[2022-01-16] MEDS: GABAPENTIN 600 MG TABLET PO SCH ×4 (08:39→21:22)
[2022-01-16] MEDS: ONDANSETRON 4 MG/2 ML VIAL IV PRN ×2 (15:22→21:24)
[2022-01-16] MEDS ORDERED: hydrALAZINE 20 MG/1 ML VIAL IV PRN (16:09)
[2022-01-16] MEDS ORDERED: GLUCAGON 1 MG VIAL IM PRN (16:10)
[2022-01-16] MEDS ORDERED: DEXTROSE 10% 250 ML BAG IV PRN (16:14)
[2022-01-16] MEDS ORDERED: REMDESIVIR 200 MG in SODIUM CHLORIDE 0.9% 210 ML IV ONE (17:00)
[2022-01-16] MEDS: INSULIN LISPRO 100 UNIT/ML SUBCUT SCH ×2 (17:17→21:22)
[2022-01-16] MEDS: DICLOFENAC SODIUM 75 MG TABLET PO PRN (18:01)
[2022-01-16] MEDS: ENOXAPARIN 40 MG/0.4 ML SYRINGE SUBCUT SCH (21:22)
[2022-01-16] MEDS: PROMETHAZINE 25 MG TABLET PO PRN (23:41)
[2022-01-17] MEDS: SODIUM CHLORIDE 0.9% 1,000 ML IV SCH ×2 (02:45→23:48)
[2022-01-17] MEDS: DICLOFENAC SODIUM 75 MG TABLET PO PRN ×2 (03:04→16:18)
[2022-01-17] MEDS: ALBUTEROL 2.5 MG/3 ML NEB RESP TX SCH ×6 (03:43→23:29)
[2022-01-17 05:20] LABS: Basophils % 0.2 % (0.0-0.8); Hematocrit 38.9 VOL% (35.7-47.0); Immature Granulocytes % 1.3 %; Immature Granulocytes Absolute 0.08 #; Lymphocytes # 0.9 10*3/uL (1.4-4.0); Lymphocytes % 13.7 % (21.3-54.2); Mean Corpuscular HGB Conc 30.8 GM/DL (32-36); Mean Corpuscular Volume 94.6 FL (87-102); Mean Platelet Volume 11.6 FL (9.6-12.0); Monocytes # 0.2 10*3/uL (0.11-0.8); Monocytes % 3.1 % (1.7-12.7); Neutrophils % 81.7 % (38.7-73.9); Platelet Count 181 T/CUMM (130-400); Red Blood Count 4.11 MC/CUMM (3.8-5.5); Red Cell Distribution Width 14.7 % (9.3-17.3); White Blood Count 6.4 T/CUMM (4-12)
[2022-01-17 05:42] LABS: Osmolality,Calculated 297.8 MOS/KG (273-304); Potassium 3.8 MMOL/L (3.5-5.1)
[2022-01-17] MEDS: INSULIN LISPRO 100 UNIT/ML SUBCUT SCH ×4 (08:15→20:50)
[2022-01-17] MEDS: REMDESIVIR 100 MG in SODIUM CHLORIDE 0.9% 100 ML IV SCH (09:50)
[2022-01-17] MEDS: PROMETHAZINE 25 MG TABLET PO PRN (09:51)
[2022-01-17] MEDS: metFORMIN 500 MG TABLET PO SCH ×2 (09:51→20:46)
[2022-01-17] MEDS: methylPREDNISolone SOD SUC 40 MG/1 ML VIAL IV SCH ×2 (09:51→20:49)
[2022-01-17] MEDS: GABAPENTIN 600 MG TABLET PO SCH ×4 (09:52→20:46)
[2022-01-17] MEDS: tiZANidine 4 MG TABLET PO SCH ×2 (09:52→20:47)
[2022-01-17] MEDS: PANTOPRAZOLE 40 MG TABLET PO SCH (09:52)
[2022-01-17] MEDS: FUROSEMIDE 80 MG TABLET PO SCH (09:52)
[2022-01-17] MEDS: carvediloL 6.25 MG TABLET PO SCH ×2 (09:52→20:47)
[2022-01-17] MEDS: NON-FORMULARY MEDICATION (Budesonide-Glycopyr-Formoterol [Breztri Aerosphere] 160-9-4.8 mc INH SCH ×2 (10:34→23:08)
[2022-01-17] MEDS ORDERED: NALOXONE 0.4 MG/ML VIAL IV PRN (16:04)
[2022-01-17] MEDS: ONDANSETRON 4 MG/2 ML VIAL IV PRN (16:18)
[2022-01-17] MEDS ORDERED: HYDROmorphone 1 MG/1 ML SYRINGE IV ONE ×2 (18:15→20:00)
[2022-01-17] MEDS: ENOXAPARIN 40 MG/0.4 ML SYRINGE SUBCUT SCH (20:49)
[2022-01-18] MEDS: DICLOFENAC SODIUM 75 MG TABLET PO PRN (01:21)
[2022-01-18] MEDS: ALBUTEROL 2.5 MG/3 ML NEB RESP TX SCH ×6 (03:32→22:25)
[2022-01-18] MEDS: INSULIN LISPRO 100 UNIT/ML SUBCUT SCH ×4 (08:20→20:36)
[2022-01-18] MEDS: carvediloL 6.25 MG TABLET PO SCH ×2 (08:20→20:26)
[2022-01-18] MEDS: REMDESIVIR 100 MG in SODIUM CHLORIDE 0.9% 100 ML IV SCH (08:20)
[2022-01-18] MEDS: NON-FORMULARY MEDICATION (Budesonide-Glycopyr-Formoterol [Breztri Aerosphere] 160-9-4.8 mc INH SCH ×2 (08:20→20:36)
[2022-01-18] MEDS: FUROSEMIDE 80 MG TABLET PO SCH (08:20)
[2022-01-18] MEDS: methylPREDNISolone SOD SUC 40 MG/1 ML VIAL IV SCH (08:20)
[2022-01-18] MEDS: GABAPENTIN 600 MG TABLET PO SCH ×4 (08:20→20:25)
[2022-01-18] MEDS: PANTOPRAZOLE 40 MG TABLET PO SCH (08:20)
[2022-01-18] MEDS: metFORMIN 500 MG TABLET PO SCH ×2 (08:20→20:24)
[2022-01-18] MEDS: tiZANidine 4 MG TABLET PO SCH ×2 (08:21→20:26)
[2022-01-18] MEDS: PROMETHAZINE 25 MG/1 ML VIAL IM PRN ×2 (12:01→17:59)
[2022-01-18] MEDS: ACETAMINOPHEN 325 MG TABLET PO PRN (12:01)
[2022-01-18] MEDS ORDERED: HYDROmorphone 1 MG/1 ML SYRINGE IV ONE (17:03)
[2022-01-18] MEDS: POLYETHYLENE GLYCOL POWDER 17 GM PACK PO PRN (17:14)
[2022-01-18] MEDS: ENOXAPARIN 40 MG/0.4 ML SYRINGE SUBCUT SCH (20:24)
[2022-01-18] MEDS: SODIUM CHLORIDE 0.9% 1,000 ML IV SCH (20:27)
[2022-01-19] MEDS: ALBUTEROL 2.5 MG/3 ML NEB RESP TX SCH ×6 (02:15→23:55)
[2022-01-19] MEDS: INSULIN LISPRO 100 UNIT/ML SUBCUT SCH ×4 (08:03→21:41)
[2022-01-19] MEDS: GABAPENTIN 600 MG TABLET PO SCH ×4 (08:49→21:51)
[2022-01-19] MEDS: metFORMIN 500 MG TABLET PO SCH ×2 (08:49→21:53)
[2022-01-19] MEDS: FUROSEMIDE 80 MG TABLET PO SCH (08:50)
[2022-01-19] MEDS: tiZANidine 4 MG TABLET PO SCH ×2 (08:50→21:51)
[2022-01-19] MEDS: carvediloL 6.25 MG TABLET PO SCH ×2 (08:50→21:51)
[2022-01-19] MEDS: PANTOPRAZOLE 40 MG TABLET PO SCH (08:50)
[2022-01-19] MEDS: NON-FORMULARY MEDICATION (Budesonide-Glycopyr-Formoterol [Breztri Aerosphere] 160-9-4.8 mc INH SCH ×2 (08:52→21:50)
[2022-01-19] MEDS ORDERED: FUROSEMIDE 40 MG/4 ML VIAL IV ONE (09:00)
[2022-01-19] MEDS ORDERED: methylPREDNISolone SOD SUC 40 MG/1 ML VIAL IV SCH (09:00)
[2022-01-19] MEDS: POLYETHYLENE GLYCOL POWDER 17 GM PACK PO PRN (10:33)
[2022-01-19] MEDS: ACETAMINOPHEN 325 MG TABLET PO PRN ×2 (10:34→16:37)
[2022-01-19] MEDS: PROMETHAZINE 25 MG TABLET PO PRN ×3 (10:34→21:52)
[2022-01-19] MEDS ORDERED: HYDROmorphone 1 MG/1 ML SYRINGE IV ONE ×2 (11:00→14:40)
[2022-01-19] MEDS: ENOXAPARIN 40 MG/0.4 ML SYRINGE SUBCUT SCH (21:51)
[2022-01-19] MEDS: methylPREDNISolone SOD SUC 40 MG/1 ML VIAL IV SCH (21:52)
[2022-01-19] MEDS: HYDROmorphone 1 MG/1 ML SYRINGE IV SCH (21:52)
[2022-01-20] MEDS: ALBUTEROL 2.5 MG/3 ML NEB RESP TX SCH ×2 (03:50→09:53)
[2022-01-20 06:29] LABS: Basophils % 0.1 % (0.0-0.8); Hematocrit 41.4 VOL% (35.7-47.0); Hemoglobin 12.9 GM/DL (12.0-16.0); Immature Granulocytes % 1.9 %; Immature Granulocytes Absolute 0.16 #; Lymphocytes # 1.4 10*3/uL (1.4-4.0); Lymphocytes % 16.5 % (21.3-54.2); Mean Corpuscular HGB Conc 31.2 GM/DL (32-36); Mean Corpuscular Volume 93.5 FL (87-102); Mean Platelet Volume 11.8 FL (9.6-12.0); Monocytes # 0.3 10*3/uL (0.11-0.8); Monocytes % 3.9 % (1.7-12.7); Neutrophils % 77.6 % (38.7-73.9); Platelet Count 193 T/CUMM (130-400); Red Blood Count 4.43 MC/CUMM (3.8-5.5); Red Cell Distribution Width 14.6 % (9.3-17.3); White Blood Count 8.4 T/CUMM (4-12)
[2022-01-20 06:38] LABS: Alanine Aminotransferase 99 U/L (13-56); Albumin 3.1 G/DL (3.4-5.0); Alkaline Phosphatase 89 U/L (45-117); Aspartate Amino Transferase 37 U/L (0-37); Bilirubin,Total < 0.39 MG/DL (0.20-1.00); Blood Urea Nitrogen 34 MG/DL (7-18); Calcium 8.2 MG/DL (8.5-10.1); Carbon Dioxide 35 MMOL/L (21-32); Chloride 103 MMOL/L (98-107); Glucose 149 MG/DL (74-106); Osmolality,Calculated 293.1 MOS/KG (273-304); Potassium 3.5 MMOL/L (3.5-5.1); Sodium 142 MMOL/L (136-145); Total Protein 5.9 G/DL (6.4-8.2)
[2022-01-20 08:31] VITALS: BP 138/79
[2022-01-20] MEDS: carvediloL 6.25 MG TABLET PO SCH (09:00)
[2022-01-20] MEDS: GABAPENTIN 600 MG TABLET PO SCH (09:00)
[2022-01-20] MEDS: methylPREDNISolone SOD SUC 40 MG/1 ML VIAL IV SCH (09:00)
[2022-01-20] MEDS: metFORMIN 500 MG TABLET PO SCH (09:00)
[2022-01-20] MEDS: HYDROmorphone 1 MG/1 ML SYRINGE IV SCH (09:00)
[2022-01-20] MEDS: NON-FORMULARY MEDICATION (Budesonide-Glycopyr-Formoterol [Breztri Aerosphere] 160-9-4.8 mc INH SCH (09:00)
[2022-01-20] MEDS: FUROSEMIDE 80 MG TABLET PO SCH (09:00)
[2022-01-20] MEDS: PANTOPRAZOLE 40 MG TABLET PO SCH (09:00)
[2022-01-20] MEDS: tiZANidine 4 MG TABLET PO SCH (09:00)
[2022-01-20] MEDS ORDERED: HEPARIN LOCK FLUSH 500 UNIT/5 ML SYRINGE IV PRN (10:39)
[2022-01-20] MEDS: INSULIN LISPRO 100 UNIT/ML SUBCUT SCH (12:08)
== END 2022-01-20 11:26 | disposition home health service (06) | DRG 178 ==
LOC: N.ED 10:32 → N.EDINP 14:08 → N.5E 15:31
PROVIDERS: ADMIT Family Medicine; ATTEND Family Medicine

== ENCOUNTER 2022-02-25 13:47 | Inpatient (IN) ==
[2022-02-25] MEDS ORDERED: methylPREDNISolone SOD SUC 125 MG/2 ML VIAL IV STA (14:23)
[2022-02-25] MEDS ORDERED: ALBUTEROL NEB SOLN 5 MG/ML 20 ML/BOTTLE CONT NEB SCH (14:30)
[2022-02-25 15:13] LABS: Basophils # 0.1 10*3/uL (0.0-0.2); Basophils % 0.8 % (0.0-0.8); Eosinophils # 0.4 10*3/uL (0.0-0.87); Hematocrit 41.6 VOL% (35.7-47.0); Hemoglobin 13.2 GM/DL (12.0-16.0); Immature Granulocytes % 0.7 %; Immature Granulocytes Absolute 0.07 #; Lymphocytes % 30.8 % (21.3-54.2); Mean Corpuscular HGB Conc 31.7 GM/DL (32-36); Mean Platelet Volume 11.5 FL (9.6-12.0); Monocytes # 0.6 10*3/uL (0.11-0.8); Monocytes % 6.7 % (1.7-12.7); Platelet Count 208 T/CUMM (130-400); Red Blood Count 4.52 MC/CUMM (3.8-5.5); Red Cell Distribution Width 14.6 % (9.3-17.3); White Blood Count 9.6 T/CUMM (4-12)
[2022-02-25 15:31] LABS: Albumin 3.3 G/DL (3.4-5.0); Bilirubin,Total 0.4 MG/DL (0.20-1.00); Calcium 8.8 MG/DL (8.5-10.1); Potassium 4.4 MMOL/L (3.5-5.1); Total Protein 6.4 G/DL (6.4-8.2)
[2022-02-25 15:44] LABS: Arterial Base Excess iSTAT 0 MMOL/L (-2.5-2.5); Arterial Bicarbonate iSTAT 25.4 MMOL/L (20-26); Arterial O2 Saturation iSTAT 97 % (95-100); Arterial PCO2 iSTAT 41 MM HG (35-48); Arterial PO2 iSTAT 94 MM HG (80-95); Arterial Total CO2 iSTAT 27 MMO/L (23-27); Arterial pH iSTAT 7.399 (7.35-7.45)
[2022-02-25] MEDS ORDERED: ONDANSETRON 4 MG/2 ML VIAL ONE (15:45)
[2022-02-25] MEDS ORDERED: LEVOFLOXACIN INJ 750 MG/150 ML PREMIX IV ONE (15:59)
[2022-02-25] MEDS ORDERED: ACETAMINOPHEN 325 MG TABLET PO PRN (16:02)
[2022-02-25] MEDS ORDERED: GLUCAGON 1 MG VIAL IM PRN (16:02)
[2022-02-25] MEDS ORDERED: DEXTROSE 10% 250 ML BAG IV PRN (16:31)
[2022-02-25] MEDS: ENOXAPARIN 40 MG/0.4 ML SYRINGE SUBCUT SCH (18:38)
[2022-02-25] MEDS: SODIUM CHLORIDE 0.45% 1,000 ML IV SCH (18:38)
[2022-02-25] MEDS: GABAPENTIN 600 MG TABLET PO SCH ×2 (18:38→21:08)
[2022-02-25] MEDS: PROMETHAZINE 25 MG/1 ML VIAL IM PRN ×2 (18:44→23:35)
[2022-02-25] MEDS: ALBUTEROL 2.5 MG/3 ML NEB RESP TX SCH ×2 (19:33→23:52)
[2022-02-25] MEDS: DOCUSATE SODIUM 100 MG CAPSULE PO SCH (21:08)
[2022-02-25] MEDS: DICLOFENAC SODIUM 75 MG TABLET PO SCH (21:08)
[2022-02-25] MEDS: NON-FORMULARY MEDICATION (Budesonide-Glycopyr-Formoterol [Breztri Aerosphere] 160-9-4.8 mc INH SCH (21:08)
[2022-02-25] MEDS: carvediloL 6.25 MG TABLET PO SCH (21:08)
[2022-02-25] MEDS: tiZANidine 4 MG TABLET PO SCH (21:09)
[2022-02-26] MEDS: methylPREDNISolone SOD SUC 40 MG/1 ML VIAL IV SCH ×3 (00:02→16:29)
[2022-02-26] MEDS: SODIUM CHLORIDE 0.45% 1,000 ML IV SCH ×3 (02:19→22:22)
[2022-02-26] MEDS: ALBUTEROL 2.5 MG/3 ML NEB RESP TX SCH ×6 (03:14→23:27)
[2022-02-26 04:50] LABS: Basophils % 0.1 % (0.0-0.8); Hematocrit 41.3 VOL% (35.7-47.0); Hemoglobin 13.1 GM/DL (12.0-16.0); Immature Granulocytes Absolute 0.07 #; Lymphocytes # 0.9 10*3/uL (1.4-4.0); Lymphocytes % 12.1 % (21.3-54.2); Mean Corpuscular HGB Conc 31.7 GM/DL (32-36); Mean Corpuscular Volume 92.6 FL (87-102); Mean Platelet Volume 11.6 FL (9.6-12.0); Monocytes # 0.1 10*3/uL (0.11-0.8); Monocytes % 1.1 % (1.7-12.7); Neutrophils % 85.7 % (38.7-73.9); Platelet Count 184 T/CUMM (130-400); Red Blood Count 4.46 MC/CUMM (3.8-5.5); Red Cell Distribution Width 14.6 % (9.3-17.3); White Blood Count 7.4 T/CUMM (4-12)
[2022-02-26] MEDS: PROMETHAZINE 25 MG/1 ML VIAL IM PRN ×4 (05:56→23:31)
[2022-02-26] MEDS: GABAPENTIN 600 MG TABLET PO SCH ×4 (08:25→20:20)
[2022-02-26] MEDS: DICLOFENAC SODIUM 75 MG TABLET PO SCH (08:25)
[2022-02-26] MEDS: PANTOPRAZOLE 40 MG TABLET PO SCH (08:25)
[2022-02-26] MEDS: FUROSEMIDE 80 MG TABLET PO SCH (08:25)
[2022-02-26] MEDS: DOCUSATE SODIUM 100 MG CAPSULE PO SCH ×2 (08:25→20:20)
[2022-02-26] MEDS: carvediloL 6.25 MG TABLET PO SCH ×2 (08:25→20:19)
[2022-02-26] MEDS: tiZANidine 4 MG TABLET PO SCH ×2 (08:25→20:20)
[2022-02-26] MEDS: ONDANSETRON 4 MG/2 ML VIAL IV PRN ×2 (08:30→16:28)
[2022-02-26] MEDS: NON-FORMULARY MEDICATION (Budesonide-Glycopyr-Formoterol [Breztri Aerosphere] 160-9-4.8 mc INH SCH ×2 (08:30→20:20)
[2022-02-26] MEDS ORDERED: POTASSIUM CHLORIDE RIDER 10 MEQ/100 ML PREMIX IV PRN (08:38)
[2022-02-26] MEDS ORDERED: POTASSIUM CHLORIDE 20 MEQ TABLET PO PRN (08:38)
[2022-02-26] MEDS ORDERED: MAGNESIUM SULF RIDER 2 GM/50 ML PREMIX IV PRN (08:38)
[2022-02-26] MEDS ORDERED: MAGNESIUM SULF RIDER 4 GM/100 ML PREMIX IV PRN (08:38)
[2022-02-26] MEDS ORDERED: BENZONATATE 100 MG CAPSULE PO PRN (08:39)
[2022-02-26] MEDS ORDERED: DAPAGLIFLOZIN 5 MG TABLET PO SCH (09:00)
[2022-02-26] MEDS: ALBUTEROL/IPRATROPIUM 3 ML NEB RESP TX SCH ×4 (11:30→23:24)
[2022-02-26] MEDS: INSULIN LISPRO 100 UNIT/ML SUBCUT SCH ×3 (11:45→20:57)
[2022-02-26] MEDS: MORPHINE 2 MG/1 ML SYRINGE IV PRN ×3 (11:46→23:37)
[2022-02-26] MEDS: ENOXAPARIN 40 MG/0.4 ML SYRINGE SUBCUT SCH (16:27)
[2022-02-26] MEDS: LEVOFLOXACIN INJ 750 MG/150 ML PREMIX IV SCH (16:29)
[2022-02-27] MEDS: methylPREDNISolone SOD SUC 40 MG/1 ML VIAL IV SCH ×3 (00:47→16:37)
[2022-02-27] MEDS: ALBUTEROL/IPRATROPIUM 3 ML NEB RESP TX SCH ×6 (03:43→23:48)
[2022-02-27] MEDS: ALBUTEROL 2.5 MG/3 ML NEB RESP TX SCH ×4 (03:50→23:47)
[2022-02-27] MEDS: SODIUM CHLORIDE 0.45% 1,000 ML IV SCH ×2 (05:11→10:31)
[2022-02-27] MEDS: PROMETHAZINE 25 MG/1 ML VIAL IM PRN ×2 (05:25→12:05)
[2022-02-27] MEDS: MORPHINE 2 MG/1 ML SYRINGE IV PRN ×3 (05:29→18:41)
[2022-02-27] MEDS: NON-FORMULARY MEDICATION (Budesonide-Glycopyr-Formoterol [Breztri Aerosphere] 160-9-4.8 mc INH SCH ×2 (06:01→08:18)
[2022-02-27 06:42] LABS: Basophils % 0.2 % (0.0-0.8); Hematocrit 40.6 VOL% (35.7-47.0); Hemoglobin 12.4 GM/DL (12.0-16.0); Immature Granulocytes % 1.6 %; Immature Granulocytes Absolute 0.23 #; Lymphocytes % 6.5 % (21.3-54.2); Mean Corpuscular HGB Conc 30.5 GM/DL (32-36); Mean Corpuscular Volume 95.5 FL (87-102); Mean Platelet Volume 11.8 FL (9.6-12.0); Monocytes # 0.3 10*3/uL (0.11-0.8); Monocytes % 2.2 % (1.7-12.7); Neutrophils % 89.5 % (38.7-73.9); Platelet Count 173 T/CUMM (130-400); Red Blood Count 4.25 MC/CUMM (3.8-5.5); Red Cell Distribution Width 14.9 % (9.3-17.3); White Blood Count 14.7 T/CUMM (4-12)
[2022-02-27 06:53] LABS: Alanine Aminotransferase 30 U/L (13-56); Albumin 3.2 G/DL (3.4-5.0); Alkaline Phosphatase 106 U/L (45-117); Aspartate Amino Transferase 11 U/L (0-37); Bilirubin,Total < 0.39 MG/DL (0.20-1.00); Blood Urea Nitrogen 36 MG/DL (7-18); Calcium 7.8 MG/DL (8.5-10.1); Carbon Dioxide 27 MMOL/L (21-32); Chloride 106 MMOL/L (98-107); Glucose 212 MG/DL (74-106); Osmolality,Calculated 294.3 MOS/KG (273-304); Potassium 3.7 MMOL/L (3.5-5.1); Sodium 141 MMOL/L (136-145); Total Protein 6.7 G/DL (6.4-8.2)
[2022-02-27] MEDS: INSULIN LISPRO 100 UNIT/ML SUBCUT SCH ×4 (08:17→20:38)
[2022-02-27] MEDS: carvediloL 6.25 MG TABLET PO SCH ×2 (08:18→20:40)
[2022-02-27] MEDS: FUROSEMIDE 80 MG TABLET PO SCH (08:18)
[2022-02-27] MEDS: GABAPENTIN 600 MG TABLET PO SCH ×4 (08:18→20:39)
[2022-02-27] MEDS: DOCUSATE SODIUM 100 MG CAPSULE PO SCH ×2 (08:18→20:39)
[2022-02-27] MEDS: tiZANidine 4 MG TABLET PO SCH ×2 (08:18→20:40)
[2022-02-27] MEDS: PANTOPRAZOLE 40 MG TABLET PO SCH (08:18)
[2022-02-27] MEDS ORDERED: hydrALAZINE 20 MG/1 ML VIAL IV ONE (13:34)
[2022-02-27] MEDS ORDERED: guaiFENesin 200 MG/10 ML UDCUP PO PRN (15:08)
[2022-02-27] MEDS: FLUTICASONE 50 MCG NASAL SPRAY 16 GM BOTTLE BOTH NARES SCH (16:37)
[2022-02-27] MEDS: LEVOFLOXACIN INJ 750 MG/150 ML PREMIX IV SCH (16:41)
[2022-02-27] MEDS: ENOXAPARIN 40 MG/0.4 ML SYRINGE SUBCUT SCH (16:41)
[2022-02-27] MEDS ORDERED: PROMETHAZINE 25 MG/1 ML VIAL IM ONE (17:00)
[2022-02-27] MEDS: FLUTICASONE/SALMETEROL 250-50 DISKUS 14 DOSE INH SCH (20:37)
[2022-02-28] MEDS: PROMETHAZINE 25 MG/1 ML VIAL IM PRN (01:10)
[2022-02-28] MEDS: MORPHINE 2 MG/1 ML SYRINGE IV PRN (01:11)
[2022-02-28] MEDS: methylPREDNISolone SOD SUC 40 MG/1 ML VIAL IV SCH ×2 (01:32→09:47)
[2022-02-28] MEDS: ALBUTEROL 2.5 MG/3 ML NEB RESP TX SCH (03:42)
[2022-02-28] MEDS: ALBUTEROL/IPRATROPIUM 3 ML NEB RESP TX SCH ×3 (03:48→11:20)
[2022-02-28] MEDS ORDERED: carvediloL 6.25 MG TABLET PO SCH (08:00)
[2022-02-28] MEDS: INSULIN LISPRO 100 UNIT/ML SUBCUT SCH ×2 (09:43→12:09)
[2022-02-28] MEDS: DOCUSATE SODIUM 100 MG CAPSULE PO SCH (09:43)
[2022-02-28] MEDS: FUROSEMIDE 80 MG TABLET PO SCH (09:43)
[2022-02-28] MEDS: PANTOPRAZOLE 40 MG TABLET PO SCH (09:43)
[2022-02-28] MEDS: tiZANidine 4 MG TABLET PO SCH (09:43)
[2022-02-28] MEDS: GABAPENTIN 600 MG TABLET PO SCH ×2 (09:43→14:28)
[2022-02-28] MEDS: FLUTICASONE/SALMETEROL 250-50 DISKUS 14 DOSE INH SCH (09:44)
[2022-02-28] MEDS: FLUTICASONE 50 MCG NASAL SPRAY 16 GM BOTTLE BOTH NARES SCH (09:44)
[2022-02-28 12:14] VITALS: BP 112/75
[2022-02-28] MEDS ORDERED: HEPARIN LOCK FLUSH 500 UNIT/5 ML SYRINGE IV PRN (14:49)
== END 2022-02-28 15:15 | disposition home or self-care (01) | DRG 190 ==
LOC: N.ED 13:47 → N.EDINP 16:02 → N.3E 17:48
PROVIDERS: ADMIT Family Medicine; ATTEND Family Medicine